=== PATIENT | male | born 1960 | race Caucasian/White ===

== ENCOUNTER → 2017-04-22 | Outpatient (REF) | payer OTHER ==
[2017-04-22 11:50] LABS: MEAN CORPUSCULAR HEMOGLOBIN 35.9 pg (27.0-33.0); MEAN CORPUSCULAR HGB CONC 36.2 g/dl (32.0-36.5); MEAN CORPUSCULAR VOLUME 99.2 fl (80.0-96.0); WHITE BLOOD COUNT 13.2 K/mm3 (4.0-10.0)
[2017-04-22 11:59] LABS: INR 1.09
[2017-04-22 12:20] LABS: ALBUMIN 3.6 GM/DL (3.2-5.2); ALBUMIN/GLOBULIN RATIO 0.97 (1.00-1.93); BILIRUBIN,TOTAL 2.3 MG/DL (0.2-1.0); CALCIUM LEVEL 8.7 MG/DL (8.5-10.1); CREATININE FOR GFR 4.49 MG/DL (0.70-1.30); GLOMERULAR FILTRATION RATE 14.5 (>56); TOTAL PROTEIN 7.3 GM/DL (6.4-8.2)
[2017-04-22 13:43] LABS: POTASSIUM SERUM 2.4 MEQ/L (3.5-5.1)
== END ==
LOC: M SFHCPLAZ 08:25
PROVIDERS: ATTEND Internal Medicine
DX: Z79.01 Long term (current) use of anticoagulants (principal); I10 Essential (primary) hypertension; E78.5 Hyperlipidemia, unspecified; Z86.718 Personal history of other venous thrombosis and embolism

== ENCOUNTER → 2017-04-23 | Outpatient (REF) | payer OTHER ==
[2017-04-23 17:50] LABS: INR 1.18
[2017-04-23 19:09] LABS: ALBUMIN 3.7 GM/DL (3.2-5.2); ALBUMIN/GLOBULIN RATIO 0.88 (1.00-1.93); BILIRUBIN,TOTAL 2.1 MG/DL (0.2-1.0); CALCIUM LEVEL 9.3 MG/DL (8.5-10.1); CREATININE FOR GFR 3.83 MG/DL (0.70-1.30); GLOMERULAR FILTRATION RATE 17.4 (>56); POTASSIUM SERUM 3.1 MEQ/L (3.5-5.1); TOTAL PROTEIN 7.9 GM/DL (6.4-8.2)
== END ==
LOC: M SFHCPLAZ 15:46
PROVIDERS: ATTEND Internal Medicine
DX: N17.9 Acute kidney failure, unspecified (principal); Z86.718 Personal history of other venous thrombosis and embolism

== ENCOUNTER → 2017-04-28 | Outpatient (REF) | payer OTHER ==
[2017-04-28 13:27] LABS: INR 1.73
[2017-04-28 15:48] LABS: CALCIUM LEVEL 9.9 MG/DL (8.5-10.1); CREATININE FOR GFR 1.69 MG/DL (0.70-1.30); GLOMERULAR FILTRATION RATE 44.7 (>56); MAGNESIUM LEVEL 1.9 MG/DL (1.8-2.4); POTASSIUM SERUM 3.2 MEQ/L (3.5-5.1)
== END ==
LOC: M SFHCPLAZ 11:30
PROVIDERS: ATTEND Internal Medicine
DX: N17.9 Acute kidney failure, unspecified (principal); Z79.01 Long term (current) use of anticoagulants

== ENCOUNTER → 2017-05-21 | Outpatient (REF) | payer OTHER ==
[2017-05-21 16:01] LABS: ALBUMIN/GLOBULIN RATIO 0.95 (1.00-1.93); BILIRUBIN,TOTAL 1.5 MG/DL (0.2-1.0); CALCIUM LEVEL 9.7 MG/DL (8.5-10.1); CREATININE FOR GFR 1.42 MG/DL (0.70-1.30); GLOMERULAR FILTRATION RATE 54.7 (>56); POTASSIUM SERUM 3.3 MEQ/L (3.5-5.1); TOTAL PROTEIN 8.2 GM/DL (6.4-8.2)
[2017-05-21 16:16] LABS: INR 1.89
== END ==
LOC: M SFHCPLAZ 13:20
PROVIDERS: ATTEND Internal Medicine
DX: Z79.01 Long term (current) use of anticoagulants (principal); I10 Essential (primary) hypertension; N17.9 Acute kidney failure, unspecified

== ENCOUNTER → 2017-06-18 | Outpatient (REF) | payer OTHER ==
[2017-06-18 15:58] LABS: INR 1.11
[2017-06-18 16:04] LABS: ALBUMIN 3.9 GM/DL (3.2-5.2); ALBUMIN/GLOBULIN RATIO 1.05 (1.00-1.93); BILIRUBIN,TOTAL 1.7 MG/DL (0.2-1.0); CALCIUM LEVEL 9.6 MG/DL (8.5-10.1); CREATININE FOR GFR 1.41 MG/DL (0.70-1.30); GLOMERULAR FILTRATION RATE 55.2 (>56); TOTAL PROTEIN 7.6 GM/DL (6.4-8.2)
[2017-06-18 16:19] LABS: POTASSIUM SERUM 2.9 MEQ/L (3.5-5.1)
== END ==
LOC: M LABDRAW1 15:35
PROVIDERS: ATTEND Internal Medicine
DX: K76.0 Fatty (change of) liver, not elsewhere classified (principal); Z79.01 Long term (current) use of anticoagulants

== ENCOUNTER → 2017-11-14 | Outpatient (REF) | payer OTHER | LOC: M SFHCPLAZ 13:08 | DX: I10 Essential (primary) hypertension (principal); N18.3 Chronic kidney disease, stage 3 (moderate); R73.01 Impaired fasting glucose; E78.5 Hyperlipidemia, unspecified; Z79.01 Long term (current) use of anticoagulants ==

== ENCOUNTER → 2017-11-24 | Outpatient (REF) | payer OTHER ==
[2017-11-24 17:50] LABS: INR 3.85; PROTHROMBIN TIME 39.8 SECONDS (12.4-14.5)
[2017-11-24 18:50] LABS: ALBUMIN/GLOBULIN RATIO 1.08 (1.00-1.93); ALKALINE PHOSPHATASE 111 U/L (45-117); ALT/SGPT 91 U/L (12-78); ANION GAP 12 MEQ/L (8-16); AST/SGOT 170 U/L (7-37); BILIRUBIN,TOTAL 0.9 MG/DL (0.2-1.0); BLOOD UREA NITROGEN 14 MG/DL (7-18); CALCIUM LEVEL 8.8 MG/DL (8.5-10.1); CARBON DIOXIDE LEVEL 26 MEQ/L (21-32); CHLORIDE LEVEL 108 MEQ/L (98-107); CHOLESTEROL LEVEL 239 MG/DL (<200); CHOLESTEROL RISK RATIO 3.144 (<5); CREATININE FOR GFR 1.02 MG/DL (0.70-1.30); GLOMERULAR FILTRATION RATE > 60.0 (>56); GLUCOSE, FASTING 75 MG/DL (70-105); HDL CHOLESTEROL 76 MG/DL (>40); LDL CHOLESTEROL 132.4 MG/DL (<100); MAGNESIUM LEVEL 1.8 MG/DL (1.8-2.4); NON-HDL-C 163 MG/DL; POTASSIUM SERUM 3.6 MEQ/L (3.5-5.1); SODIUM LEVEL 146 MEQ/L (136-145); TOTAL PROTEIN 7.7 GM/DL (6.4-8.2); TRIGLYCERIDES LEVEL 153 MG/DL (<150)
[2017-11-24 18:54] LABS: HEMATOCRIT 42.3 % (42.0-52.0); HEMOGLOBIN 14.5 g/dl (14.0-18.0); MEAN CORPUSCULAR HEMOGLOBIN 35.2 pg (27.0-33.0); MEAN CORPUSCULAR HGB CONC 34.3 g/dl (32.0-36.5); MEAN CORPUSCULAR VOLUME 102.7 fl (80.0-96.0); PLATELET COUNT, AUTOMATED 133 10^3/uL (150-450); RED BLOOD COUNT 4.12 10^6/uL (4.30-6.10); WHITE BLOOD COUNT 7.4 10^3/uL (4.0-10.0)
== END ==
LOC: M SFHCPLAZ 15:15
DX: I10 Essential (primary) hypertension (principal); E78.5 Hyperlipidemia, unspecified; Z86.718 Personal history of other venous thrombosis and embolism; Z79.01 Long term (current) use of anticoagulants

== ENCOUNTER → 2018-02-10 | Outpatient (REF) | payer OTHER ==
[2018-02-10 14:27] LABS: INR 2.76; PROTHROMBIN TIME 30.4 SECONDS (12.4-14.5)
== END ==
LOC: M LABDRAW1 11:43
DX: Z51.81 Encounter for therapeutic drug level monitoring (principal); Z79.01 Long term (current) use of anticoagulants; Z86.718 Personal history of other venous thrombosis and embolism
CPT/HCPCS: 85610

== ENCOUNTER → 2020-11-01 | Outpatient (CLI) | payer OTHER ==
[~2020-11-01] MED LIST: [UNRECOGNIZED DRUG - CODE] OU
--- NOTE | 2020-11-01 16:20 | REP ---
INDICATION: SOB , ABDOMEN PAIN. COMPARISON: No comparison study. TECHNIQUE: Two views.. FINDINGS: Right hemidiaphragm is somewhat elevated. No pleural effusion is seen. No definite infiltrate. There is a levoconvex thoracic curvature. Thoracic aorta is somewhat tortuous. No free subdiaphragmatic air. IMPRESSION: No evidence of infiltrate or free subdiaphragmatic air. Lower thoracic curvature. Slight elevation right hemidiaphragm.. <Electronically signed by Maxwell Kidd > 11/01/20 [id number]
--- NOTE | 2020-11-01 16:23 | REP ---
INDICATION: SOB , ABDOMEN PAIN. COMPARISON: None. TECHNIQUE: Four views. FINDINGS: Four views of the abdomen demonstrate no evidence of infiltrate or free subdiaphragmatic air. There is air and stool in a nondistended colon. No small or large bowel dilation is seen. There is hazy ground-glass density pattern throughout the abdomen medial and lateral to the colon question diffuse abdominal ascites. No mass or organomegaly is seen. No pathologic calcification is observed. IMPRESSION: Normal bowel gas pattern. Question diffuse abdominal ascites. Otherwise negative. <Electronically signed by Maxwell Kidd > 11/01/20 [id number]
[2020-11-01 18:19] LABS: BASO # 0.1 10^3/uL (0.0-0.2); BASO % 0.7 % (0.0-1.0); EOS % 0.2 % (0.0-3.0); HEMATOCRIT 31.7 % (42.0-52.0); HEMOGLOBIN 10.6 g/dl (13.5-17.5); LYMPH # 0.4 10^3/uL (1.5-5.0); LYMPH % 4.2 % (24.0-44.0); MEAN CORPUSCULAR HEMOGLOBIN 34.9 pg (27.0-33.0); MEAN CORPUSCULAR HGB CONC 33.4 g/dl (32.0-36.5); MEAN CORPUSCULAR VOLUME 104.3 fl (80.0-96.0); MONO # 1.7 10^3/uL (0.0-0.8); MONO % 16.9 % (0.0-5.0); NEUTROPHILS # 7.5 10^3/uL (1.5-8.5); NEUTROPHILS % 77.2 % (36.0-66.0); PLATELET COUNT, AUTOMATED 101 10^3/uL (150-450); RED BLOOD COUNT 3.04 10^6/uL (4.30-6.10); WHITE BLOOD COUNT 9.8 10^3/uL (4.0-10.0)
[2020-11-01 18:37] LABS: ALBUMIN 2.5 GM/DL (3.2-5.2); ALT/SGPT 21 U/L (12-78); BILIRUBIN,TOTAL 6.7 MG/DL (0.2-1.0); BLOOD UREA NITROGEN 28 MG/DL (7-18); CALCIUM LEVEL 8.6 MG/DL (8.8-10.2); CARBON DIOXIDE LEVEL 20 MEQ/L (21-32); CHLORIDE LEVEL 101 MEQ/L (98-107); CREATININE FOR GFR 2.18 MG/DL (0.70-1.30); FREE T4 1.85 NG/DL (0.76-1.46); GLUCOSE, FASTING 83 MG/DL (70-100); POTASSIUM SERUM 3.6 MEQ/L (3.5-5.1); SODIUM LEVEL 137 MEQ/L (136-145); TOTAL PROTEIN 7.3 GM/DL (6.4-8.2)
[2020-11-01 18:50] LABS: HEPATITIS B SURFACE ANTIGEN NEGATIVE (NEGATIVE)
[2020-11-01 19:17] LABS: HEPATITIS B CORE ANTIBODY IGM NEGATIVE (NEGATIVE); HEPATITIS C VIRUS ABY INDEX 0.2 INDEX (<0.8)
[2020-11-01 19:20] LABS: HEPATITIS A ANTIBODY IGM NEGATIVE (NEGATIVE)
== END ==
LOC: M WUC 15:39
PROVIDERS: ATTEND Physician Assistant
DX: R06.02 Shortness of breath (principal); R10.84 Generalized abdominal pain

== ENCOUNTER → 2020-11-01 | Outpatient (REF) | payer OTHER | LOC: M LAB REF 18:09 | PROVIDERS: ATTEND Physician Assistant | DX: R10.84 Generalized abdominal pain (principal); R06.03 Acute respiratory distress ==

== ENCOUNTER 2020-11-02 13:01 | Inpatient (IN) | payer OTHER ==
[~2020-11-02] VITALS: Ht 180.3 cm; Wt 82.3 kg
[2020-11-02 14:22] LABS: BASO # 0.1 10^3/uL (0.0-0.2); BASO % 0.7 % (0.0-1.0); EOS % 0.2 % (0.0-3.0); HEMATOCRIT 32.1 % (42.0-52.0); HEMOGLOBIN 10.8 g/dl (13.5-17.5); LYMPH # 0.5 10^3/uL (1.5-5.0); LYMPH % 5.2 % (24.0-44.0); MEAN CORPUSCULAR HGB CONC 33.6 g/dl (32.0-36.5); MEAN CORPUSCULAR VOLUME 103.9 fl (80.0-96.0); MONO # 1.4 10^3/uL (0.0-0.8); MONO % 14.8 % (0.0-5.0); NEUTROPHILS # 7.4 10^3/uL (1.5-8.5); NEUTROPHILS % 78.1 % (36.0-66.0); PLATELET COUNT, AUTOMATED 118 10^3/uL (150-450); RED BLOOD COUNT 3.09 10^6/uL (4.30-6.10); WHITE BLOOD COUNT 9.5 10^3/uL (4.0-10.0)
[2020-11-02 14:34] LABS: INR 1.29; PARTIAL THROMBOPLASTIN TIME 36.6 SECONDS (24.2-38.5); PROTHROMBIN TIME 16.4 SECONDS (12.5-14.3)
[2020-11-02 15:00] LABS: RSV AMPLIFICATION NEGATIVE (NEGATIVE)
--- NOTE | 2020-11-02 15:54 | REP ---
INDICATION: lower extremity edema. COMPARISON: Comparison study September 09, 2012.. TECHNIQUE: Bilateral lower extremity duplex venous ultrasound. FINDINGS: The deep veins are anechoic and fully compressible in the right lower extremity on two-dimensional scanning. Color flow and spectral Doppler interrogation unremarkable on the right. There is no evidence of DVT on the right. In the left lower extremity however, there is echogenic throughout nonocclusive partial thrombosis of the femoral vein and popliteal vein. There is diffuse subcutaneous edema. No occlusive thrombus is seen. Common femoral vein is clear. IMPRESSION: Positive study for nonocclusive DVT affecting the left femoral vein and left popliteal vein. Thrombus is somewhat echogenic question subacute or chronic. No occlusive DVT is seen. The right lower extremity deep venous system is clear.. <Electronically signed by Maxwell Kidd > 11/02/20 [id number]
--- NOTE | 2020-11-02 15:58 | REP ---
INDICATION: ABDOMINAL SWELLING. COMPARISON: None. TECHNIQUE: Real-time sonographic evaluation of ABDOMEN PERFORMED, WITH DUPLEX DOPPLER EVALUATION OF PORTAL VASCULATURE. FINDINGS: Gallbladder demonstrates no definite intraluminal stones. It is contracted. The wall of the gallbladder is mildly thickened at 6 mm. There is no intrahepatic or extrahepatic biliary dilatation, common bile duct measures 6 mm in maximum diameter. The liver demonstrates coarsened heterogeneous echotexture with no gross mass. Pancreas is not seen due to overlying bowel gas. Spleen is enlarged measuring 15.7 x 13.1 x 6.1 cm. There is no evidence of hydronephrosis, cyst, mass, or calculus in either kidney. The right kidney measures 11.4 x 4.6 x 5.4 cm. Left renal dimensions are 9.7 x 3.9 x 4.8 cm. The abdominal aorta is not visualized due to overlying bowel gas. There is a moderate to large amount of ascites diffusely. The main portal vein measures 9 mm in diameter. The splenic vein and portal veins demonstrate normal direction of flow, with somewhat slow flow velocities, velocity in the main portal vein is 13.6 centimeter/second. There is no portal vein thrombosis. Hepatic veins are patent with no thrombus. There appears to be reversal of flow in the left hepatic vein. Patent main hepatic artery demonstrates peak systolic velocity of 96 centimeters/second. IMPRESSION: Contracted gallbladder with possible diffuse wall thickening but no intraluminal stones. No biliary dilatation. Diffuse heterogeneous coarsened echotexture of the liver compatible with diffuse fibrofatty infiltration and likely cirrhosis. No liver mass. Splenomegaly. Moderate to large amount of ascites. Portal vasculature demonstrates normal direction of flow with no thrombosis. No evidence of hepatic vein thrombosis. There appears to be reversal of flow in the left hepatic vein. <Electronically signed by Gopi Hazel > 11/02/20 [id number]
[2020-11-02 16:03] LABS: ALBUMIN 2.7 GM/DL (3.2-5.2); ALT/SGPT 25 U/L (12-78); AMYLASE 47 U/L (25-115); BILIRUBIN,DIRECT 5.2 MG/DL (0.0-0.2); BILIRUBIN,TOTAL 6.7 MG/DL (0.2-1.0); BLOOD UREA NITROGEN 33 MG/DL (7-18); CALCIUM LEVEL 9.3 MG/DL (8.8-10.2); CARBON DIOXIDE LEVEL 22 MEQ/L (21-32); CHLORIDE LEVEL 102 MEQ/L (98-107); CK-MB VALUE MASS 2.5 NG/ML (<3.6); CPK CREATINE PHOSPHOKINASE 46 U/L (39-308); CREATININE FOR GFR 2.37 MG/DL (0.70-1.30); ETHYL ALCOHOL (ETHANOL) 0.118 % (0.000-0.010); GLUCOSE, FASTING 93 MG/DL (70-100); LIPASE 262 U/L (73-393); MAGNESIUM LEVEL 1.7 MG/DL (1.8-2.4); MB/CK RELATIVE INDEX 5.43 (< OR =4); NT-PRO BNP 1915 PG/ML (<125); POTASSIUM SERUM 3.4 MEQ/L (3.5-5.1); SODIUM LEVEL 137 MEQ/L (136-145); TOTAL PROTEIN 7.8 GM/DL (6.4-8.2); TROPONIN I < 0.02 NG/ML (< 0.10)
--- NOTE | 2020-11-02 16:50 | REP ---
INDICATION: sob. COMPARISON: Comparison chest x-ray November 01, 2020. TECHNIQUE: Portable upright AP chest radiograph. FINDINGS: The lungs are well inflated and free of infiltrate. Pleural angles are sharp. Heart size is normal. Pulmonary vasculature is not increased. Right hemidiaphragm remains elevated. Current exposure is made in a lordotic projection. No acute infiltrate is seen. IMPRESSION: Somewhat elevated right hemidiaphragm. No acute infiltrate.. <Electronically signed by Maxwell Kidd > 11/02/20 [id number]
[2020-11-02] MEDS ORDERED: FUROSEMIDE 100MG/10ML VIAL (J1940) IV ONE (17:45)
[2020-11-02] MEDS ORDERED: [UNRECOGNIZED DRUG - CODE] OU (17:50)
--- NOTE | 2020-11-02 18:23 | REPVR ---
PROCEDURE INFORMATION: Exam: CT Chest Without Contrast; Diagnostic Exam date and time: 11/02/2020 4:57 PM Age: 60 years old Clinical indication: Other: Elevated right hemidiaphragm; Additional info: Abdominal distension, elevated right hemidiaphragm TECHNIQUE: Imaging protocol: Diagnostic computed tomography of the chest without contrast. Radiation optimization: All CT scans at this facility use at least one of these dose optimization techniques: automated exposure control; mA and/or kV adjustment per patient size (includes targeted exams where dose is matched to clinical indication); or iterative reconstruction. COMPARISON: [place] PORTABLE CHEST X-RAY 11/02/2020 4:33 PM FINDINGS: Lungs: A consolidation is identified at the right lung base, likely representing atelectatic change. Pneumonia is within the differential. Additional patchy atelectatic changes are visualized. Within the left lower lobe of the lung, on series 201, image 52, there is a pleurally based nodule measuring 6-7 mm. Pleural space: No pneumothorax. No pleural effusion. Heart: Coronary artery calcification. No cardiomegaly. Aorta: Minimal atherosclerosis. No aortic aneurysm. Lymph nodes: Evaluation for hilar lymph nodes is limited by the absence of intravenous contrast. Diaphragm: There is significant elevation of the right hemidiaphragm. Bones/joints: Hypertrophic degenerative changes are noted involving the spine. Soft tissues: Retroareolar increased density is identified bilaterally, consistent with gynecomastia. Other findings: For discussion of findings involving the abdomen and pelvis, refer to the abdomen/pelvis CT report from the same day. 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 A paraesophageal lymph node cannot be excluded. IMPRESSION: 1. A consolidation is identified at the right lung base, likely representing atelectatic change. Pneumonia is within the differential. Additional patchy atelectatic changes are visualized. Clinical correlation is recommended. 2. There is significant elevation of the right hemidiaphragm. 3. Within the left lower lobe of the lung, there is a pleurally based nodule measuring 6-7 mm. Recommend follow-up CT Chest in 6-12 months. (References: Irvin) 4. 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 A paraesophageal lymph node cannot be excluded. 5. Additional findings described above. REFERENCES: 1. Chikihodonny H, et al. Guidelines for Management of Incidental Pulmonary Nodules Detected on CT Images: From the Fleischner Society 2017. Radiology. 2017;284(1):228-243. 2. Gabriele J, et al. Updated Fleischner Society Guidelines for Managing Incidental Pulmonary Nodules: Common Questions and Challenging Scenarios. Radiographics. 2018;38(5):6369-8256. Electronically signed by: Paco Clemens On 11/02/2020 18:23:14 PM
--- NOTE | 2020-11-02 18:42 | REPVR ---
PROCEDURE INFORMATION: Exam: CT Abdomen And Pelvis Without Contrast Exam date and time: 11/02/2020 4:57 PM Age: 60 years old Clinical indication: Bloating; Additional info: Abdominal distension, elevated right hemidiaphragm TECHNIQUE: Imaging protocol: Computed tomography of the abdomen and pelvis without contrast. Radiation optimization: All CT scans at this facility use at least one of these dose optimization techniques: automated exposure control; mA and/or kV adjustment per patient size (includes targeted exams where dose is matched to clinical indication); or iterative reconstruction. COMPARISON: ABD COMPLETE US 11/02/2020 3:06 PM FINDINGS: Liver: There is irregularity of the hepatic contour, likely representing cirrhosis. Within the hepatic dome posteriorly, there is a 2.8 x 1.9 cm hypodense lesion, incompletely characterized on this study. Gallbladder and bile ducts: Gallstones are visualized within the gallbladder. Pancreas: Small calcifications are identified within the pancreatic head and uncinate process. Spleen: Mild splenomegaly. Adrenal glands: No mass. Kidneys and ureters: There is a tiny calcification or calculus visualized in the region of the mid left ureter measuring 2 mm, although there is no significant hydronephrosis or hydroureter. No hydronephrosis the right kidney. Nonspecific perinephric stranding bilaterally. Stomach and bowel: Evaluation of bowel is limited by the absence of oral contrast. No bowel obstruction. Wall thickening of proximal jejunum, suggestive of enteritis. Colonic diverticula are visualized. Evaluation for diverticulitis is limited by the presence of ascites. There is an increase in submucosal fat within the ascending colon. This can be associated with inflammatory bowel disease. Appendix: Hyperdensity within the distal appendix, suggestive of an appendicolith. There is mild gaseous distention of the proximal appendix. Appendicitis is difficult to exclude due to the presence of surrounding ascites. Intraperitoneal space: There is a large quantity of abdominal and pelvic ascites. Diffuse peritoneal stranding identified. This stranding is likely contributed by the ascites or inflammation, although additional pathology cannot be excluded. Vasculature: Atherosclerosis of a nondilated abdominal aorta. The right common femoral vein is ectatic. Additional atherosclerotic changes visualized. Lymph nodes: There is an enlarged left external iliac chain lymph node measuring 2.5 x 1.0 cm, nonspecific as to etiology. A mildly enlarged left inguinal lymph node is also noted. Nonspecific right inguinal lymph nodes identified. A few mildly enlarged lymph nodes are identified adjacent to the left common iliac artery. Scattered small additional retroperitoneal lymph nodes identified. Urinary bladder: Unremarkable as visualized. Reproductive: There is abnormal density within the bilateral inguinal canals which may represent fluid or abnormal positioning of the testes. Bones/joints: Old fractures are identified of the right posterior 10th through 12th ribs. Probable old fractures of the right L2 and L3 transverse processes. Soft tissues: Fluid extends into an umbilical hernia. There is diffuse swelling of the visualized soft tissues, consistent with anasarca. IMPRESSION: 1. There is irregularity of the hepatic contour, likely representing cirrhosis. Within the hepatic dome posteriorly, there is a 2.8 x 1.9 cm hypodense lesion, incompletely characterized on this study. A nonemergent MRI of the abdomen with/without contrast is recommended, as clinically indicated. 2. There is a large quantity of abdominal and pelvic ascites. Diffuse peritoneal stranding identified. 3. Hyperdensity within the distal appendix, suggestive of an appendicolith. There is mild gaseous distention of the proximal appendix. Appendicitis is difficult to exclude due to the presence of surrounding ascites. Clinical correlation is recommended. 4. Anasarca. 5. Cholelithiasis. 6. There is a tiny calcification or calculus visualized in the region of the mid left ureter measuring 2 mm, although there is no significant hydronephrosis or hydroureter. 7. Wall thickening of proximal jejunum, suggestive of enteritis. 8. Colonic diverticular disease. 9. There is an increase in submucosal fat within the ascending colon. This can be associated with inflammatory bowel disease. 10. There is an enlarged left external iliac chain lymph node measuring 2.5 x 1.0 cm, nonspecific as to etiology. A mildly enlarged left inguinal lymph node is also noted. A few mildly enlarged lymph nodes are identified adjacent to the left common iliac artery. 11. Mild splenomegaly. 12. Additional findings described above. Findings are discussed with BRENT BENÍTEZ , 11/02/2020 6:39 PM EST. The findings were acknowledged and understood. Electronically signed by: Paco Clemens On 11/02/2020 18:42:23 PM
[2020-11-02] MEDS ORDERED: FUROSEMIDE 40MG/4ML VIAL (J1940) IV SCH (19:00)
[2020-11-02] MEDS ORDERED: DIGOXIN INJ 0.5 MG/2 ML AMP (J1160) IV ONE ×2 (20:00→23:00)
[2020-11-02] MEDS: THIAMINE 100 MG TAB PO SCH (20:00)
[2020-11-02] MEDS ORDERED: ENOXAPARIN 80MG/0.8ML SYRINGE (J1650 PER 10MG) SC ONE (20:00)
[2020-11-02] MEDS ORDERED: SPIRONOLACTONE 25 MG TAB PO ONE (21:00)
[2020-11-02] MEDS: LORazepam 2 MG TAB PO PRN (23:27)
[2020-11-03] VITALS (18 sets, daily range): BP systolic 95–152; BP diastolic 60–98
[2020-11-03] MEDS ORDERED: MAG SULF 1GM/100ML (MAG RUN) 1 GM in IV 1 EA IV ONE (00:30)
--- NOTE | 2020-11-03 00:53 | HPEPDOC ---
General Date of Admission 11/02/20 Date of Service: Nov 02, 2020 Chief Complaint The patient is a 60-year-old male admitted with a reason for visit of Leg/Abdominal Swelling. Source: Patient History of Present Illness 60 year old male with h/o alcohol abuse, CKD stage 3, h/o DVT x in the past in the left leg, chronic venous stasis, hypertension presented to ED with increa sing swelling of the abdomen, leg swelling, cough and shortness of breath. Patient reports that the swelling has been building up over the past 5 weeks and now has become so bad that he has been have difficulty breathing because of the belly pushing up against his chest. He has been unable to bend down and wear his compression stocking. He describes his abdomen feeling very tense and tight with a stretching kind of pain rated it at about 4/10 and no position in bed in giving him any comfort. Its present all over the abdomen. He also noted an umbilical hernia. He was found to have massive ascites. He was also noted to be in Afib with RVR in the ED. US of the legs revealed DVT acute vs subacute on the left leg. He was also noted to have MARJORIE. Labs were significant for lactic acidosis and an alcohol level of 0.116. Creatinine of 2.36, Bilirubin 6.5. Direct Bili 5.2, ammonia 39. His last drink was last night. He admits that he has been drinking almost all his life and very heavily in the last 5 years. He was admitted for Decompensated cirrhosis of liver with massive ascites, possibly varices, cholestasis, MARJORIE, Afib with RVR and DVT of left leg acute Vs subacute CT abd showed. 1. There is irregularity of the hepatic contour, likely representing cirrhosis. Within the hepatic dome posteriorly, there is a 2.8 x 1.9 cm hypodense lesion, incompletely characterized on this study. A nonemergent MRI of the abdomen with/without contrast is recommended, as clinically indicated. 2. There is a large quantity of abdominal and pelvic ascites. Diffuse peritoneal stranding identified. 3. Hyperdensity within the distal appendix, suggestive of an appendicolith. There is mild gaseous distention of the proximal appendix. Appendicitis is difficult to exclude due to the presence of surrounding ascites. Clinical correlation is recommended. 4. Anasarca. 5. Cholelithiasis. 6. There is a tiny calcification or calculus visualized in the region of the mid left ureter measuring 2 mm, although there is no significant hydronephrosis or hydroureter. 7. Wall thickening of proximal jejunum, suggestive of enteritis. 8. Colonic diverticular disease. 9. There is an increase in submucosal fat within the ascending colon. This can be associated with inflammatory bowel disease. 10. There is an enlarged left external iliac chain lymph node measuring 2.5 x 1.0 cm, nonspecific as to etiology. A mildly enlarged left inguinal lymph node is also noted. A few mildly enlarged lymph nodes are identified adjacent to the left common iliac artery. 11. Mild splenomegaly. CT chest: 1. A consolidation is identified at the right lung base, likely representing atelectatic change. Pneumonia is within the differential. Additional patchy atelectatic changes are visualized. Clinical correlation is recommended. 2. There is significant elevation of the right hemidiaphragm. 3. Within the left lower lobe of the lung, there is a pleurally based nodule measuring 6-7 mm. Recommend follow-up CT Chest in 6-12 months. (References: Albert and Gabriele) 4.Paraesophageal varices are identified. A paraesophageal lymph node cannot be excluded. Doppler US of legs: Positive study for nonocclusive DVT affecting the left femoral vein and left popliteal vein. Thrombus is somewhat echogenic question subacute or chronic. No occlusive DVT is seen. The right lower extremity deep venous system is clear.. Home Medications Scheduled Bromfenac Sodium (Bromfenac Sodium) 0.09% 1.7ML Drops, 1 DROP OU QAM, (Reported) Allergies Coded Allergies: No Known Allergies (Verified , 05/23/03) Past Medical History Medical History CIRRHOSIS HYPERTENSION HYPERLIPIDEMIA FATTY LIVER PERSONAL HISTORY OF DVT (DEEP VEIN THROMBOSIS) IMPAIRED FASTING GLUCOSE CHRONIC KIDNEY DISEASE, STAGE 3 OTHER INSOMNIA ALCOHOL USE DISORDER CHRONIC VENOUS STASIS> Surgical History INGUINAL HERNIA REPAIR 1984 Family History FATHER IN 10/2011--DIABETIC AND HYPERTENSIVE. HIS MOTHER AT AGE 87 OF HEART DISEASE. Social History * Smoker: former Smoker Alcohol: heavy Drugs: denies A-FIB/CHADSVASC A-FIB History Current/History of A-Fib/PAF?: Yes Current PO Anticoag Therapy: Yes Review of Systems Constitutional: Reports: Weakness, Fatigue; Denies: Chills, Fever, Night Sweats Eyes: Denies: Pain, Vision change ENT: Denies: Head Aches, Ear Pain, Dysphagia Pulmonary: Reports: Dyspnea, Cough Cardiovascular: Denies: Chest Pain, Palpitations, Orthopnea, Paroxysmal Noc. Dyspnea, Lt Headedness Gastrointestinal: Reports: Abdominal Pain, Other Symptoms (ascites); Denies: Nausea, Vomiting, Diarrhea Genitourinary: Denies: Dysuria, Frequency, Incontinence, Retention Hematologic: Denies: Bruising, Bleeding Excessively Musculoskeletal: Reports: Back Pain Physical Examination General Exam: Positive: Alert, No Acute Distress, Mild Distress (due to abdominal distension) Eye Exam: Positive: PERRLA, Conjunctiva & lids normal, EOMI, Sclera icteric ENT Exam: Positive: Atraumatic, Mucous membr. moist/pink, Pharynx Normal Neck Exam: Positive: Supple, JVD; Negative: thyromegaly Chest Exam: Positive: Normal air movement, Rales, Wheezing Heart Exam: Positive: Tachycardic, Irregular Rhythm, Normal S1; Negative: Rate Normal, Bradycardic, Regular Rhythm, Normal S2, Gallops Abdomen Exam: Positive: Normal bowel sounds, Soft, Tenderness (all over), Hernia (umbilical hernia'); Negative: Hepatospenomegaly Extremity Exam: Positive: Edema; Negative: Clubbing, Cyanosis Vital Signs Vital Signs Date Time Temp Pulse Resp B/P (MAP) Pulse Ox O2 Delivery O2 Flow Rate FiO2 11/02/20 16:54 112 18 97 Room Air 11/02/20 16:45 122/74 (90) 11/02/20 13:01 98.4 Laboratory Data Labs 24H Laboratory Tests 2 11/02/20 13:46: Immature Granulocyte % (Auto) 1.0, Neutrophils (%) (Auto) 78.1H, Lymphocytes (%) (Auto) 5.2L, Monocytes (%) (Auto) 14.8H, Eosinophils (%) (Auto) 0.2, Basophils (%) (Auto) 0.7, Neutrophils # (Auto) 7.4, Lymphocytes # (Auto) 0.5L, Monocytes # (Auto) 1.4H, Eosinophils # (Auto) 0.0, Basophils # (Auto) 0.1, Nucleated Red Blood Cells % (auto) 0.2H, Prothrombin Time 16.4H, Prothromb Time International Ratio 1.29, Activated Partial Thromboplast Time 36.6, Anion Gap 13, Glomerular Filtration Rate 30.0L, Lactic Acid Level 4.0*H, Calcium Level 9.3, Magnesium Level 1.7L, Total Bilirubin 6.7H, Direct Bilirubin 5.2H, Aspartate Amino Transf (AST/SGOT) 71H, Alanine Aminotransferase (ALT/SGPT) 25, Alkaline Phosphatase 227H, Total Creatine Kinase 46, Creatine Kinase MB 2.5, Creatine Kinase MB Relative Index 5.43H, Troponin I < 0.02, CP-Yqj-D-Type Natriuretic Peptide 1915H, Total Protein 7.8, Albumin 2.7L, Albumin/Globulin Ratio 0.5, Amylase Level 47, Lipase 262, Ethyl Alcohol Level 0.118H, Coronavirus (COVID-19)(PCR) NEGATIVE, Influenza Type A (RT-PCR) NEGATIVE, Influenza Type B (RT-PCR) NEGATIVE, Respiratory Syncytial Virus (PCR) NEGATIVE 11/02/20 13:48: Ammonia 39H CBC/BMP Laboratory Tests 11/02/20 13:46 Assessment/Plan 60 year old male with h/o alcohol abuse, CKD stage 3, h/o DVT x in the past in the left leg, chronic venous stasis, hypertension presented to ED with increasing swelling of the abdomen, leg swelling, cough and shortness of breath. Patient reports that the swelling has been building up over the past 5 weeks and now has become so bad that he has been have difficulty breathing because of the belly pushing up against his chest. He has been unable to bend down and wear his compression stocking. He describes his abdomen feeling very tense and tight with a stretching kind of pain rated it at about 4/10 and no position in bed in giving him any comfort. Its present all over the abdomen. He also noted an umbilical hernia. He was found to have massive ascites. He was also noted to be in Afib with RVR in the ED. US of the legs revealed DVT acute vs subacute on the left leg. He was also noted to have MARJORIE. Labs were significant for lactic acidosis and an alcohol level of 0.116. Creatinine of 2.36, Bilirubin 6.5. Direct Bili 5.2, ammonia 39. His last drink was last night. He admits that he has been drinking almost all his life and very heavily in the last 5 years. 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 will start patient on lasix, aldactone, schedule for paracentesis tomorrow Albumin' Lactacidosis probably a combination of liver failure and alcohol. Due to associated renal failure will take longer to clear if at all. MARJORIE Cause could be due to fluid overload with decreased intravascular volume. Increased intra abdominal pressure from the massive ascites or hepatorenal syndrome will continue lasix and aldactone, scheduled for Paracentesis. Albumin and lasiiiix. Cholestatic jaundice Due to cirrhosis will continue to monitor Hypomagnesemia will replace Continuos Alcohol abuse CIWA protocol, watch for alcohol withdrawal. Nonocclusive DVT affecting the left femoral vein and left popliteal vein. will give Lovenox. Afib with RVR rate control with Digoxin and metoprolol. If Patient goes into alcohol withdrawal will probably worsen will give 1 dose of lovenox only. As will need procedure tomorrow Echo. Hepatic lobe Within the hepatic dome posteriorly, there is a 2.8 x 1.9 cm hypodense lesion need further evaluation for malignancy, Right lung base atelectasis/ pneumonia i do not believe he has a pneumonia as no fever, no elevted WBC, no resp complaints. Lung nodule needs follow up CT. Plan / VTE VTE Prophylaxis Ordered?: Yes BRIAN GOMEZ MD Nov 02, 2020 18:15
[2020-11-03] MEDS: METOPROLOL TART 25 MG TABLET PO SCH ×3 (01:50→05:11)
[2020-11-03 05:10] LABS: BASO % 0.4 % (0.0-1.0); HEMATOCRIT 29.1 % (42.0-52.0); HEMOGLOBIN 9.8 g/dl (13.5-17.5); LYMPH # 0.4 10^3/uL (1.5-5.0); LYMPH % 3.9 % (24.0-44.0); MEAN CORPUSCULAR HEMOGLOBIN 35.3 pg (27.0-33.0); MEAN CORPUSCULAR HGB CONC 33.7 g/dl (32.0-36.5); MEAN CORPUSCULAR VOLUME 104.7 fl (80.0-96.0); MONO # 1.4 10^3/uL (0.0-0.8); MONO % 12.6 % (0.0-5.0); NEUTROPHILS # 9.3 10^3/uL (1.5-8.5); NEUTROPHILS % 82.3 % (36.0-66.0); PLATELET COUNT, AUTOMATED 125 10^3/uL (150-450); RED BLOOD COUNT 2.78 10^6/uL (4.30-6.10); WHITE BLOOD COUNT 11.3 10^3/uL (4.0-10.0)
[2020-11-03] MEDS: LORazepam 2 MG TAB PO PRN (05:11)
[2020-11-03 05:39] LABS: ALBUMIN 2.5 GM/DL (3.2-5.2); BILIRUBIN,TOTAL 8.6 MG/DL (0.2-1.0); CALCIUM LEVEL 8.7 MG/DL (8.8-10.2); CREATININE FOR GFR 2.4 MG/DL (0.70-1.30); GLOMERULAR FILTRATION RATE 29.5 (>49); MAGNESIUM LEVEL 1.9 MG/DL (1.8-2.4); POTASSIUM SERUM 3.7 MEQ/L (3.5-5.1); TOTAL PROTEIN 7.1 GM/DL (6.4-8.2)
[2020-11-03] MEDS ORDERED: LORazepam 2 MG/ML VIAL IV STA (06:42)
--- NOTE | 2020-11-03 07:05 | ECGEPIP ---
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
[2020-11-03] MEDS: THIAMINE 100 MG TAB PO SCH ×3 (09:00→21:58)
[2020-11-03] MEDS: MULTIVITAMINS/MINERALS THERAP 1 TAB PO SCH (09:00)
[2020-11-03] MEDS: FOLIC ACID 1 MG TAB PO SCH (09:00)
[2020-11-03] MEDS ORDERED: FUROSEMIDE 40MG/4ML VIAL (J1940) IV SCH (09:00)
[2020-11-03] MEDS ORDERED: SPIRONOLACTONE 25 MG TAB PO SCH (09:00)
[2020-11-03] MEDS: cefTRIAXone SOD 1 GM in D5W MINI-BAG PLUS 50 ML IV SCH (09:04)
--- NOTE | 2020-11-03 11:33 | IPNPDOC ---
Subjective Date Seen The patient was seen on 11/03/20. Subjective Chief Complaint/HPI Patient started withdrawing from late last night.This am he is completely confused gets intermittently agitated trying to get out of bed. Needed IV ativan. No fevr or chills, no bowel movement, urinary incontinance. Planned for Paracentesis today Objective Physical Examination General Exam: Positive: Mild Distress (due to abdominal distension), Other (confused) Eye Exam: Positive: PERRLA, Conjunctiva & lids normal, Sclera icteric ENT Exam: Positive: Atraumatic, Mucous membr. moist/pink, Pharynx Normal Neck Exam: Positive: Supple, JVD; Negative: thyromegaly Chest Exam: Positive: Normal air movement, Wheezing Heart Exam: Positive: Tachycardic, Irregular Rhythm, Normal S1; Negative: Rate Normal, Bradycardic, Regular Rhythm, Normal S2, Gallops Telemetry: Positive: Atrial fibrillation Abdomen Exam: Positive: Normal bowel sounds, Soft, Tenderness (all over), Hernia (umbilical hernia'), Other (large ascites); Negative: Hepatospenomegaly Extremity Exam: Positive: Edema; Negative: Clubbing, Cyanosis Psych Exam: Positive: Other (confused) Assessment /Plan Assessment 60 year old male with h/o alcohol abuse, CKD stage 3, h/o DVT x in the past in the left leg, chronic venous stasis, hypertension presented to ED with increasing swelling of the abdomen, leg swelling, cough and shortness of breath. Patient reports that the swelling has been building up over the past 5 weeks and now has become so bad that he has been have difficulty breathing because of the belly pushing up against his chest. He has been unable to bend down and wear his compression stocking. He describes his abdomen feeling very tense and tight with a stretching kind of pain rated it at about 4/10 and no position in bed in giving him any comfort. Its present all over the abdomen. He also noted an umbilical hernia. He was found to have massive ascites. He was also noted to be in Afib with RVR in the ED. US of the legs revealed DVT acute vs subacute on the left leg. He was also noted to have MARJORIE. Labs were significant for lactic acidosis and an alcohol level of 0.116. Creatinine of 2.36, Bilirubin 6.5. Direct Bili 5.2, ammonia 39. His last drink was last night. He admits that he has been drinking almost all his life and very heavily in the last 5 years. 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 will start patient on lasix, aldactone, schedule for paracentesis tomorrow Albumin. will give lactulose. will start on empiric ceftriaxone. Acute metabolic encephalopathy due to acute ongoing alcohol withdrawal. may also develop hepatic encephalopathy will put on lactulose. Ativan prn. haldol prn Continuos Alcohol abuse with acute withdrawal CIWA protocol in place ativan IV prn. Lactacidosis probably a combination of liver failure and alcohol. Due to associated renal failure will take longer to clear if at all. MARJORIE Cause could be due to fluid overload with decreased intravascular volume. Increased intra abdominal pressure from the massive ascites or hepatorenal syndrome will continue lasix and aldactone, scheduled for Paracentesis. Albumin and Lasix. Cholestatic jaundice Due to cirrhosis will continue to monitor Hypomagnesemia replaced Nonocclusive DVT affecting the left femoral vein and left popliteal vein. Ac after procedure. Afib with RVR rate control with Digoxin and metoprolol. If Patient goes into alcohol withdrawal will probably worsen Echo. Will need to start AC after procedure and when patient awake and alert Hepatic lobe Within the hepatic dome posteriorly, there is a 2.8 x 1.9 cm hypodense lesion need further evaluation for malignancy will need further testing like MRI could be done as outpatient. Right lung base atelectasis/ pneumonia i do not believe he has a pneumonia as no fever, no elevated WBC, no resp complaints. this looks like atelectasis. Lung nodule needs follow up CT. Plan/VTE VTE Prophylaxis Ordered?: Yes VS, I&O, 24H, Fishbone Vital Signs/I&O Vital Signs Date Time Temp Pulse Resp B/P (MAP) Pulse Ox O2 Delivery O2 Flow Rate FiO2 11/03/20 07:50 99/70 (80) 11/03/20 07:48 98.4 107 20 93 11/03/20 06:45 Room Air 11/03/20 04:00 2.0 I&O- Last 24 Hours up to 6 AM 11/03/20 06:00 Intake Total 50.0 ml Balance 50.0 ml Laboratory Data 24H LABS Laboratory Tests 2 11/02/20 13:46: Immature Granulocyte % (Auto) 1.0, Neutrophils (%) (Auto) 78.1H, Lymphocytes (%) (Auto) 5.2L, Monocytes (%) (Auto) 14.8H, Eosinophils (%) (Auto) 0.2, Basophils (%) (Auto) 0.7, Neutrophils # (Auto) 7.4, Lymphocytes # (Auto) 0.5L, Monocytes # (Auto) 1.4H, Eosinophils # (Auto) 0.0, Basophils # (Auto) 0.1, Nucleated Red Blood Cells % (auto) 0.2H, Prothrombin Time 16.4H, Prothromb Time International Ratio 1.29, Activated Partial Thromboplast Time 36.6, Anion Gap 13, Glomerular Filtration Rate 30.0L, Lactic Acid Level 4.0*H, Calcium Level 9.3, Magnesium Level 1.7L, Total Bilirubin 6.7H, Direct Bilirubin 5.2H, Aspartate Amino Transf (AST/SGOT) 71H, Alanine Aminotransferase (ALT/SGPT) 25, Alkaline Phosphatase 227H, Total Creatine Kinase 46, Creatine Kinase MB 2.5, Creatine Kinase MB Relative Index 5.43H, Troponin I < 0.02, RT-Qwk-P-Type Natriuretic Peptide 1915H, Total Protein 7.8, Albumin 2.7L, Albumin/Globulin Ratio 0.5, Amylase Level 47, Lipase 262, Ethyl Alcohol Level 0.118H, Coronavirus (COVID-19)(PCR) NEGATIVE, Influenza Type A (RT-PCR) NEGATIVE, Influenza Type B (RT-PCR) NEGATIVE, Respiratory Syncytial Virus (PCR) NEGATIVE 11/02/20 13:48: Ammonia 39H 11/02/20 19:48: Lactic Acid Followup at 4 Hours 4.3*H 11/02/20 22:40: Lactic Acid Level 4.1*H 11/03/20 04:35: Immature Granulocyte % (Auto) 0.8, Neutrophils (%) (Auto) 82.3H, Lymphocytes (%) (Auto) 3.9L, Monocytes (%) (Auto) 12.6H, Eosinophils (%) (Auto) 0.0, Basophils (%) (Auto) 0.4, Neutrophils # (Auto) 9.3H, Lymphocytes # (Auto) 0.4L, Monocytes # (Auto) 1.4H, Eosinophils # (Auto) 0.0, Basophils # (Auto) 0.0, Nucleated Red Blood Cells % (auto) 0.2H, Anion Gap 17H, Glomerular Filtration Rate 29.5L, Lactic Acid Followup at 4 Hours 6.1*H, Calcium Level 8.7L, Magnesium Level 1.9, Total Bilirubin 8.6H, Aspartate Amino Transf (AST/SGOT) 65H, Alanine Aminotransferase (ALT/SGPT) 21, Alkaline Phosphatase 187H, Total Protein 7.1, Albumin 2.5L, Albumin/Globulin Ratio 0.5 CBC/BMP Laboratory Tests 11/02/20 13:46 11/03/20 04:35 BRIAN GOMEZ MD Nov 03, 2020 11:33
[2020-11-03] MEDS: METOPROLOL TART 12.5 MG PER 1/2 TAB PO SCH ×2 (12:00→17:01)
[2020-11-03] MEDS: LORazepam 2 MG/ML VIAL IV PRN (13:32)
[2020-11-03] MEDS ORDERED: SODIUM BICARBONATE 8.4% INJ 50MEQ 50 ML VIAL As Ordered ONE (13:53)
--- NOTE | 2020-11-03 15:54 | CR ---
CONSULTATION DATE: 11/03/2020 CONSULTATION FOR: Elizabeth Fregoso M.D. REASON FOR CONSULTATION: Acute renal failure in this gentleman with hepatic decompensation and massive ascites. HISTORY OF PRESENT ILLNESS: Mr. Briceno is a 60-year-old gentleman with known history of chronic alcohol use, history of stage III chronic kidney disease (CKD), prior history of left leg deep venous thrombosis (DVT), and hypertension. He presented to the emergency room yesterday with progressive abdominal distention and shortness of breath. He was found to have a large amount of ascites. A CT scan of abdomen and pelvis was done, which showed cirrhotic liver and large amount of abdominal and pelvic ascites in addition to cholelithiasis and anasarca. A tiny calcification was noticed in the left ureter, measuring only 2 mm without any significant hydronephrosis. Leg ultrasound shows deep venous thrombosis (DVT) in his left femoral vein. CT chest showed some consolidation and 6-7 mm nodule. His creatinine was elevated at 2.3 mg/dL, and a nephrology consultation was requested. Patient is seen today. He is quite obtunded and unable to provide any information himself. His chart is reviewed, and all information is obtained from his chart. MEDICAL HISTORY: 1. Alcoholic cirrhosis with ascites. 2. Hypertension. 3. Stage III of CKD. 4. Hyperlipidemia. 5. Prior history of DVT is left leg. 6. History of chronic venous stasis. SURGICAL HISTORY: Significant for inguinal hernia repair in 1984 FAMILY HISTORY: Father with diabetes and hypertension. Mother at age 87 with heart disease. PERSONAL AND SOCIAL HISTORY: Patient is a former smoker and heavy alcohol drinker. He denies any drug use. HOME MEDICATIONS: Bromfenac sodium eyedrops. No other medications that he was taking regularly. ALLERGIES: No known drug allergies. REVIEW OF SYSTEMS: At present, patient is unable to provide any information himself. On admission he reported progressive dyspnea and abdominal distention. No fever or chills reported. Today patient is unable to provide any information. PHYSICAL EXAMINATION: Temperature 98.3 degrees Fahrenheit, heart rate 84 per minute, respiratory rate 20 per minute, blood pressure 102/60 mm of mercury, and oxygen saturation 93% on 2 liters oxygen. His head is atraumatic. Neck is difficult to be assessed. Oral mucosa is somewhat dry. Heart sounds are regular and lungs have diminished breath sounds with poor inspiratory effort. Abdomen is markedly distended, and bowel sounds are present. He has a large amount of ascites. Extremities have generalized edema on both lower extremities. There is no cyanosis or clubbing. Neurologically, he is obtunded and not able to answer any questions. LABORATORY DATA: Today's labs show WBC count 11.3, hemoglobin 9.8, and hematocrit 29.1. Sodium 137, potassium 3.7, CO2 of 17, BUN 34, and creatinine 2.40. A lactic acid level was 4.3. A repeat one 4.1 and now most recent one 6.1. Calcium is 8.7. Total bilirubin 8.6, total protein 7.1, and albumin 2.5. PROBLEMS: 1. Acute renal failure superimposed on chronic kidney disease. Patient has known history of stage III of chronic kidney disease at baseline. He has elevated lactic acid level and probably sepsis related to either intra-abdominal infection or pneumonia. In any event, he should be treated with antibiotics. I would not recommend intravenous (IV) fluid at this point due to massive ascites and risk for worsening respiratory status. He is hemodynamically stable so far. One he gets paracentesis, I will recommend to give him IV albumin immediately before and after paracentesis and continue with every 6 hours IV albumin. Broad-spectrum antibiotics should also be given to cover for infection. 2. Cirrhosis of liver with ascites. Patient has large amount of ascites and is going to require paracentesis. Caution should be used for the amount of fluid removal, and IV albumin should be given in order to prevent hypotension. 3. Metabolic acidosis. Patient has mild metabolic acidosis, most likely related to lactic acidosis and acute renal failure. Once he gets paracentesis and remains stable, then we can consider low rate of IV sodium bicarbonate drip with 150 mEq of sodium bicarbonate at about 50-60 mL per hour. Thank you for involving me in the care of Mr. Briceno. Our nephrology service will follow him along with you.
--- NOTE | 2020-11-03 16:14 | REP ---
INDICATION: diagnositc and therapeutic COMPARISON: None. TECHNIQUE: The procedure was performed by Deloris Goodson [facility], under the direct supervision of Dr. Kidd The risks and benefits of the procedure were explained to the patient and an informed consent was obtained both verbally and written. Directly prior to the start of the procedure a formal time-out was completed in the procedure room. The largest pocket of fluid was localized in the right flank using ultrasound guidance. The skin was prepped and draped in a sterile fashion. Ten ML of 1% lidocaine 10 mg/ml was used as a local anesthetic. An 8-Thai multi side-hole catheter was inserted using trocar technique. FINDINGS: 13,400 mL of dark leonora ascites was removed and discarded. The patient tolerated the procedure well and there were no immediate complications. After the appropriate amount of monitored convalescence, the patient was discharged from the department. IMPRESSION: Ultrasound-guided paracentesis with removal of 13,400 mL of dark leonora ascites. <Electronically signed by Deloris Goodson > 11/03/20 1516 <Electronically signed by Maxwell Kidd > 11/03/20 1619
[2020-11-03] MEDS ORDERED: SODIUM BICARBONATE 150 MEQ in D5W 1,000 ML IV SCH (17:00)
[2020-11-03 22:12] LABS: CALCIUM LEVEL 8.1 MG/DL (8.8-10.2); CREATININE FOR GFR 2.48 MG/DL (0.70-1.30); GLOMERULAR FILTRATION RATE 28.4 (>49); POTASSIUM SERUM 3.5 MEQ/L (3.5-5.1)
[2020-11-04] VITALS (14 sets, daily range): BP systolic 92–174; BP diastolic 52–72
[2020-11-04 05:38] LABS: BASO % 0.3 % (0.0-1.0); HEMATOCRIT 31.1 % (42.0-52.0); HEMOGLOBIN 10.3 g/dl (13.5-17.5); LYMPH # 0.4 10^3/uL (1.5-5.0); MEAN CORPUSCULAR HEMOGLOBIN 34.7 pg (27.0-33.0); MEAN CORPUSCULAR HGB CONC 33.1 g/dl (32.0-36.5); MEAN CORPUSCULAR VOLUME 104.7 fl (80.0-96.0); MONO # 1.2 10^3/uL (0.0-0.8); NEUTROPHILS # 8.8 10^3/uL (1.5-8.5); NEUTROPHILS % 84.1 % (36.0-66.0); PLATELET COUNT, AUTOMATED 107 10^3/uL (150-450); RED BLOOD COUNT 2.97 10^6/uL (4.30-6.10); WHITE BLOOD COUNT 10.4 10^3/uL (4.0-10.0)
[2020-11-04] MEDS: METOPROLOL TART 12.5 MG PER 1/2 TAB PO SCH ×4 (06:00→18:00)
[2020-11-04 06:08] LABS: ALBUMIN 2.4 GM/DL (3.2-5.2); BILIRUBIN,TOTAL 7.6 MG/DL (0.2-1.0); CALCIUM LEVEL 8.4 MG/DL (8.8-10.2); CREATININE FOR GFR 2.47 MG/DL (0.70-1.30); GLOMERULAR FILTRATION RATE 28.6 (>49); MAGNESIUM LEVEL 1.7 MG/DL (1.8-2.4); POTASSIUM SERUM 3.6 MEQ/L (3.5-5.1); TOTAL PROTEIN 5.7 GM/DL (6.4-8.2)
[2020-11-04] MEDS: MULTIVITAMINS/MINERALS THERAP 1 TAB PO SCH (09:00)
[2020-11-04] MEDS: FOLIC ACID 1 MG TAB PO SCH (09:00)
[2020-11-04] MEDS ORDERED: MAG SULF 1GM/100ML (MAG RUN) 1 GM in IV 1 EA IV ONE (09:00)
[2020-11-04] MEDS: THIAMINE 100 MG TAB PO SCH ×2 (09:00→21:41)
[2020-11-04] MEDS: LORazepam 2 MG/ML VIAL IV PRN ×2 (09:23→13:15)
[2020-11-04] MEDS: cefTRIAXone SOD 1 GM in D5W MINI-BAG PLUS 50 ML IV SCH (09:24)
--- NOTE | 2020-11-04 11:04 | IPNPDOC ---
Subjective Date Seen The patient was seen on 11/04/20. Subjective Chief Complaint/HPI Patient awake but still remains confused and hallucinating. Mumbled speech, no fighting or aggressive at present . his CIWA is 17. Urinary incontinence. No fever No bowel movement. Objective Physical Examination General Exam: Positive: No Acute Distress, Other (confused and hallucinating) Eye Exam: Positive: PERRLA, Conjunctiva & lids normal, Sclera icteric ENT Exam: Positive: Atraumatic, Mucous membr. moist/pink, Pharynx Normal Neck Exam: Positive: Supple, JVD; Negative: thyromegaly Chest Exam: Positive: Normal air movement, Wheezing Heart Exam: Positive: Tachycardic, Irregular Rhythm, Normal S1; Negative: Rate Normal, Bradycardic, Regular Rhythm, Normal S2, Gallops Telemetry: Positive: Atrial fibrillation Abdomen Exam: Positive: Normal bowel sounds, Soft, Tenderness (all over), Hernia (umbilical hernia'), Other (large ascites); Negative: Hepatospenomegaly Extremity Exam: Positive: Edema; Negative: Clubbing, Cyanosis Psych Exam: Positive: Other (confused) Assessment /Plan Assessment 60 year old male with h/o alcohol abuse, CKD stage 3, h/o DVT x in the past in the left leg, chronic venous stasis, hypertension presented to ED with increa sing swelling of the abdomen, leg swelling, cough and shortness of breath. Patient reports that the swelling has been building up over the past 5 weeks and now has become so bad that he has been have difficulty breathing because of the belly pushing up against his chest. He has been unable to bend down and wear his compression stocking. He describes his abdomen feeling very tense and tight with a stretching kind of pain rated it at about 4/10 and no position in bed in giving him any comfort. Its present all over the abdomen. He also noted an umbilical hernia. He was found to have massive ascites. He was also noted to be in Afib with RVR in the ED. US of the legs revealed DVT acute vs subacute on the left leg. He was also noted to have MARJORIE. Labs were significant for lactic acidosis and an alcohol level of 0.116. Creatinine of 2.36, Bilirubin 6.5. Direct Bili 5.2, ammonia 39. His last drink was last night. He admits that he has been drinking almost all his life and very heavily in the last 5 years. 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 will start patient on lasix, aldactone, schedule for paracentesis tomorrow Albumin. will give lactulose. will start on empiric ceftriaxone for SBP. Acute metabolic encephalopathy due to acute ongoing alcohol withdrawal. may also develop hepatic encephalopathy will put on lactulose as needed. Ammonia normal at present. Ativan prn. haldol prn Continuos Alcohol abuse with acute withdrawal CIWA protocol in place ativan IV prn. Lactacidosis probably a combination of liver failure and alcohol. Due to associated renal failure will take longer to clear if at all. MARJORIE Cause could be due to fluid overload with decreased intravascular volume. Increased intra abdominal pressure from the massive ascites or hepatorenal syndrome Albumin Bicarb Cholestatic jaundice Due to cirrhosis will continue to monitor Hypomagnesemia replaced Nonocclusive DVT affecting the left femoral vein and left popliteal vein. Ac after procedure. Afib with RVR rate control with Digoxin and metoprolol. Echo. Will need to start AC after procedure and when patient alert and oriented will discuss anticoagulation Hepatic lobe Within the hepatic dome posteriorly, there is a 2.8 x 1.9 cm hypodense lesion need further evaluation for malignancy will need further testing like MRI could be done as outpatient. Right lung base atelectasis/ pneumonia i do not believe he has a pneumonia as no fever, no elevated WBC, no resp complaints. this looks like atelectasis. Lung nodule needs follow up CT. Plan/VTE VTE Prophylaxis Ordered?: Yes VS, I&O, 24H, Fishbone Vital Signs/I&O Vital Signs Date Time Temp Pulse Resp B/P (MAP) Pulse Ox O2 Delivery O2 Flow Rate FiO2 11/04/20 07:58 97.3 93 22 100/62 (75) 98 Nasal Cannula 2.0 I&O- Last 24 Hours up to 6 AM 11/04/20 06:00 Intake Total 200.0 ml Output Total 0 ml Balance 200.0 ml Laboratory Data 24H LABS Laboratory Tests 2 11/03/20 21:34: Anion Gap 11, Glomerular Filtration Rate 28.4L, Calcium Level 8.1L, Ammonia 37H 11/04/20 05:00: Anion Gap 9, Glomerular Filtration Rate 28.6L, Calcium Level 8.4L, Ammonia 19, Immature Granulocyte % (Auto) 0.6, Neutrophils (%) (Auto) 84.1H, Lymphocytes (%) (Auto) 4.0L, Monocytes (%) (Auto) 11.0H, Eosinophils (%) (Auto) 0.0, Basophils (%) (Auto) 0.3, Neutrophils # (Auto) 8.8H, Lymphocytes # (Auto) 0.4L, Monocytes # (Auto) 1.2H, Eosinophils # (Auto) 0.0, Basophils # (Auto) 0.0, Nucleated Red Blood Cells % (auto) 0.3H, Lactic Acid Level 2.1*H, Magnesium Level 1.7L, Total Bilirubin 7.6H, Aspartate Amino Transf (AST/SGOT) 58H, Alanine Aminotransferase (ALT/SGPT) 18, Alkaline Phosphatase 125H, Total Protein 5.7L, Albumin 2.4L, Albumin/Globulin Ratio 0.7 11/04/20 08:22: B-Hydroxybutyrate 8.43H 11/04/20 09:44: Lactic Acid Followup at 4 Hours 2.3*H CBC/BMP Laboratory Tests 11/03/20 21:34 11/04/20 05:00 BRIAN GOMEZ MD Nov 04, 2020 11:04
[2020-11-04] MEDS: HALOPERIDOL 5MG/ML VIAL (J1630 PER 1) IV PRN (13:15)
[2020-11-04] MEDS: HEPARIN SOD (PORCINE) 5000UNITS/ML 1ML VIAL/SYRINGE SQ SCH ×2 (13:15→21:41)
[2020-11-04] MEDS: [UNRECOGNIZED DRUG - OTHER] IV SCH ×5 (15:30)
[2020-11-04] MEDS: THIAMINE IV SCH ×5 (15:30)
[2020-11-04] MEDS: FOLIC ACID IV SCH ×5 (15:30)
[2020-11-04] MEDS: MULTIVITAMIN ADULT IV SCH ×5 (15:30)
[2020-11-04] MEDS: LORazepam 2 MG TAB PO PRN (18:16)
[2020-11-05] VITALS (11 sets, daily range): BP systolic 98–177; BP diastolic 56–79
--- NOTE | 2020-11-05 | IPN ---
NEPHROLOGY PROGRESS NOTE DATE: 11/04/2020 SUBJECTIVE: The patient was seen and examined at the bedside today morning. The patient is totally obtunded, not able to provide any review of systems. He got the paracentesis done yesterday. 13.4 liters of ascitic fluid was removed and discarded. No fluid was sent for analysis to the lab. The patient's renal function is stable since yesterday. Creatinine has been fluctuating at around 2.4. His lactic acid level was still high and the patient is in alcohol withdrawal at this time. OBJECTIVE: VITAL SIGNS: Temperature is 97.5 degrees Fahrenheit, blood pressure 93/70, pulse is 81, respiratory rate of 20, saturating 98% on nasal cannula at 2 liters. INTAKE AND OUTPUT: Urine output is not recorded. The patient is having incontinent voids and he got 13.4 liters of ascitic fluid removed yesterday. Weight in the bed scale is 91.8 kg. PHYSICAL EXAMINATION: GENERAL APPEARANCE: The patient is laying in bed, was completely obtunded. Eyes were closed, moving extremities purposelessly and not following any commands. HEAD AND NECK: Pupils are equally round and reactive to light. Mucous membranes are moist. Neck is supple. There is no jugular venous distention. CARDIOVASCULAR: S1, S2, regular rate. EXTREMITIES: 1+ edema of the bilateral lower extremities. RESPIRATORY: Chest is clear to auscultation bilaterally. Bilaterally currently no rales or rhonchi. ABDOMEN: Soft, positive bowel sounds. Mild amount of ascites was noted. There is a dressing in the right lower quadrant from recent paracentesis. GENITOURINARY: Bladder is not palpable. The patient has an umbilical hernia. MUSCULOSKELETAL: No clubbing, no cyanosis. Pulses are 2+. SENIOR COUNSEL: The patient is totally obtunded and does not follow commands. LAB REVIEW: CBC showed a WBC of 10.4, hemoglobin 10.3, platelets are 107. BMP showed sodium of 140, potassium 3.6, chloride 105, bicarbonate 26, BUN 45, creatinine is 2.4. Lactic acid was 2.3. beta hydroxybutyrate was 8.4. Albumin is 2.4. IMAGING: Paracentesis done yesterday with 13.4 liters of fluid removed. CURRENT INPATIENT MEDICATIONS: The patient's medications were all reviewed by myself. The patient is totally obtunded and he is in alcohol withdrawal and he has elevated lactic acid and beta hydroxybutyrate. I have started the patient on bicarbonate containing fluid with Multivitamin and KCL at 100 mL an hour. He has also been started on IV Ceftriaxone. He was also given a dose of Magnesium Sulfate one gram. IV bicarbonate fluid which was ordered yesterday has been stopped now. Lasix and Spironolactone have been stopped. No other change in the medications today as compared with yesterday. ASSESSMENT AND PLAN: 1. Acute renal failure superimposed on chronic kidney disease it is secondary to dehydration. The patient has alcohol induced acidosis. Avoid use of diuretics. Continue IV fluid hydration as mentioned above. 2. High anion gap metabolic acidosis - The patient has alcohol induced lactic acidosis and ketoacidosis. He needs dextrose containing IV fluids with magnesium, Multivitamins, thiamine, folic acid and potassium. IV fluids have been ordered. Another set of lactic acid and beta hydroxybutyrate will be checked in the morning. He will get fingerstick blood sugar checks every 4 hourly. 3. Decompensated cirrhosis with ascites - The patient got the ascitic tap done yesterday. No diuretic at this time because of lactic acidosis, ketoacidosis and dehydration. He is empirically being covered for SBP with IV Ceftriaxone. 4. Alcohol withdrawal - The patient is on Haldol and Ativan. The rest of the management is as per the Medical Team. RENA
[2020-11-05] MEDS: [UNRECOGNIZED DRUG - OTHER] IV SCH ×10 (01:37→12:50)
[2020-11-05] MEDS: MULTIVITAMIN ADULT IV SCH ×10 (01:37→12:50)
[2020-11-05] MEDS: LORazepam 2 MG/ML VIAL IV PRN ×2 (01:37→09:11)
[2020-11-05] MEDS: THIAMINE IV SCH ×10 (01:37→12:50)
[2020-11-05] MEDS: FOLIC ACID IV SCH ×10 (01:37→12:50)
[2020-11-05 04:36] LABS: CHLORIDE,RANDOM URINE 10 MEQ/L; SODIUM,RANDOM URINE < 10 MEQ/L
[2020-11-05 05:01] LABS: BASO % 0.3 % (0.0-1.0); EOS % 0.4 % (0.0-3.0); HEMATOCRIT 33.2 % (42.0-52.0); HEMOGLOBIN 11.5 g/dl (13.5-17.5); LYMPH # 0.5 10^3/uL (1.5-5.0); LYMPH % 5.4 % (24.0-44.0); MEAN CORPUSCULAR HEMOGLOBIN 35.8 pg (27.0-33.0); MEAN CORPUSCULAR HGB CONC 34.6 g/dl (32.0-36.5); MEAN CORPUSCULAR VOLUME 103.4 fl (80.0-96.0); MONO # 1.1 10^3/uL (0.0-0.8); MONO % 12.4 % (0.0-5.0); NEUTROPHILS # 7.3 10^3/uL (1.5-8.5); NEUTROPHILS % 80.6 % (36.0-66.0); PLATELET COUNT, AUTOMATED 105 10^3/uL (150-450); RED BLOOD COUNT 3.21 10^6/uL (4.30-6.10); WHITE BLOOD COUNT 9.1 10^3/uL (4.0-10.0)
[2020-11-05] MEDS: METOPROLOL TART 12.5 MG PER 1/2 TAB PO SCH ×5 (05:33→22:43)
[2020-11-05 05:36] LABS: ALBUMIN 2.1 GM/DL (3.2-5.2); CALCIUM LEVEL 8.2 MG/DL (8.8-10.2); CREATININE FOR GFR 2.26 MG/DL (0.70-1.30); GLOMERULAR FILTRATION RATE 31.7 (>49); MAGNESIUM LEVEL 1.8 MG/DL (1.8-2.4); POTASSIUM SERUM 3.5 MEQ/L (3.5-5.1); TOTAL PROTEIN 6.1 GM/DL (6.4-8.2)
[2020-11-05] MEDS: MULTIVITAMINS/MINERALS THERAP 1 TAB PO SCH (09:00)
[2020-11-05] MEDS: THIAMINE 100 MG TAB PO SCH (09:00)
[2020-11-05] MEDS: FOLIC ACID 1 MG TAB PO SCH (09:00)
[2020-11-05] MEDS ORDERED: THIAMINE 200MG/2ML VIAL (J3411 PER 100MG) IV SCH (09:00)
[2020-11-05] MEDS: cefTRIAXone SOD 1 GM in D5W MINI-BAG PLUS 50 ML IV SCH (09:10)
[2020-11-05] MEDS: HEPARIN SOD (PORCINE) 5000UNITS/ML 1ML VIAL/SYRINGE SQ SCH ×2 (09:11→20:49)
--- NOTE | 2020-11-05 10:47 | IPNPDOC ---
Subjective Date Seen The patient was seen on 11/05/20. Subjective Chief Complaint/HPI Confused , agitated and hallucinating, Sitter at bed side. incontinent. Objective Physical Examination General Exam: Positive: No Acute Distress, Other (confused and hallucinating, agitated) Eye Exam: Positive: PERRLA, Conjunctiva & lids normal, Sclera icteric ENT Exam: Positive: Atraumatic, Mucous membr. moist/pink, Pharynx Normal Neck Exam: Positive: Supple, JVD; Negative: thyromegaly Chest Exam: Positive: Normal air movement, Wheezing Heart Exam: Positive: Tachycardic, Irregular Rhythm, Normal S1; Negative: Rate Normal, Bradycardic, Regular Rhythm, Normal S2, Gallops Telemetry: Positive: Atrial fibrillation Abdomen Exam: Positive: Normal bowel sounds, Soft, Tenderness (all over), Hernia (umbilical hernia'), Other (large ascites); Negative: Hepatospenomegaly Extremity Exam: Positive: Edema; Negative: Clubbing, Cyanosis Psych Exam: Positive: Other (confused) Assessment /Plan Assessment 60 year old male with h/o alcohol abuse, CKD stage 3, h/o DVT x in the past in the left leg, chronic venous stasis, hypertension presented to ED with incre asing swelling of the abdomen, leg swelling, cough and shortness of breath. Patient reports that the swelling has been building up over the past 5 weeks and now has become so bad that he has been have difficulty breathing because of the belly pushing up against his chest. He has been unable to bend down and wear his compression stocking. He describes his abdomen feeling very tense and tight with a stretching kind of pain rated it at about 4/10 and no position in bed in giving him any comfort. Its present all over the abdomen. He also noted an umbilical hernia. He was found to have massive ascites. He was also noted to be in Afib with RVR in the ED. US of the legs revealed DVT acute vs subacute on the left leg. He was also noted to have MARJORIE. Labs were significant for lactic acidosis and an alcohol level of 0.116. Creatinine of 2.36, Bilirubin 6.5. Direct Bili 5.2, ammonia 39. His last drink was last night. He admits that he has been drinking almost all his life and very heavily in the last 5 years. 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 Received Albumin. on empiric ceftriaxone for SBP. Acute metabolic encephalopathy due to acute ongoing alcohol withdrawal with delirium tremens. may also develop hepatic encephalopathy will put on lactulose as needed. Ammonia normal at present. Ativan scheduled IV and PRN. haldol prn, IV thiamine and banana bag No po intake for 2 days. Continuos Alcohol abuse with acute withdrawal CIWA protocol in place ativan IV scheduled and prn. thiamine and folate, banana bag. Lactacidosis probably a combination of liver failure and alcohol. Due to associated renal failure will take longer to clear if at all. High anion gap metabolic acidosis due to lacticacidosis, alcohol ketosis on Banana bag. MARJORIE Cause could be due to fluid overload with decreased intravascular volume. Increased intra abdominal pressure from the massive ascites or hepatorenal syndrome Albumin Bicarb Cholestatic jaundice Due to cirrhosis will continue to monitor Hypomagnesemia replaced Nonocclusive DVT affecting the left femoral vein and left popliteal vein. Ac after procedure. Afib with RVR rate control with Digoxin and metoprolol. now rate mostly controlled except when he is getting agitated. Echo. Will need to start AC after procedure and when patient alert and oriented will discuss anticoagulation Hepatic lobe Within the hepatic dome posteriorly, there is a 2.8 x 1.9 cm hypodense lesion need further evaluation for malignancy will need further testing like MRI could be done as outpatient. Right lung base atelectasis/ pneumonia i do not believe he has a pneumonia as no fever, no elevated WBC, no resp complaints. this looks like atelectasis. Lung nodule needs follow up CT. Plan/VTE VTE Prophylaxis Ordered?: Yes VS, I&O, 24H, Fishbone Vital Signs/I&O Vital Signs Date Time Temp Pulse Resp B/P (MAP) Pulse Ox O2 Delivery O2 Flow Rate FiO2 11/05/20 10:15 89 117/66 11/05/20 08:00 96.9 19 97 Room Air 11/04/20 16:00 2.0 I&O- Last 24 Hours up to 6 AM 11/05/20 06:00 Intake Total 1490.0 ml Output Total 200 ml Balance 1290.0 ml Laboratory Data 24H LABS Laboratory Tests 2 11/04/20 18:53: Bedside Glucose (Misc Panel) 108 11/05/20 00:22: Bedside Glucose (Misc Panel) 106 11/05/20 04:00: Urine Random Creatinine 165.0, Urine Random Sodium < 10, Urine Random Potassium 37.0, Urine Random Chloride 10 11/05/20 04:41: Immature Granulocyte % (Auto) 0.9, Neutrophils (%) (Auto) 80.6H, Lymphocytes (%) (Auto) 5.4L, Monocytes (%) (Auto) 12.4H, Eosinophils (%) (Auto) 0.4, Basophils (%) (Auto) 0.3, Neutrophils # (Auto) 7.3, Lymphocytes # (Auto) 0.5L, Monocytes # (Auto) 1.1H, Eosinophils # (Auto) 0.0, Basophils # (Auto) 0.0, Nucleated Red Blood Cells % (auto) 0.2H, Anion Gap 9, Glomerular Filtration Rate 31.7L, Lactic Acid Level 2.8*H, Calcium Level 8.2L, Magnesium Level 1.8, Total Bilirubin 6.0H, Aspartate Amino Transf (AST/SGOT) 61H, Alanine Aminotransferase (ALT/SGPT) 20, Alkaline Phosphatase 117, Total Protein 6.1L, Albumin 2.1L, Albumin/Globulin Ratio 0.5, B-Hydroxybutyrate 3.28H 11/05/20 04:44: Bedside Glucose (Misc Panel) 106 CBC/BMP Laboratory Tests 11/05/20 04:41 BRIAN GOMEZ MD Nov 05, 2020 10:47
[2020-11-05] MEDS: LORazepam 2 MG/ML VIAL IV SCH ×2 (11:00→17:00)
[2020-11-05 16:08] LABS: APPEARANCE, URINE CLEAR (CLEAR); BACTERIA, URINE AUTO NEGATIVE (NEGATIVE); BILIRUBIN, URINE AUTO NEGATIVE (NEGATIVE); BLOOD, URINE BLOOD NEGATIVE (NEGATIVE); COLOR, URINE AMBER (YELLOW); GLUCOSE, URINE (UA) AUTO NEGATIVE (NEGATIVE); KETONE, URINE AUTO NEGATIVE (NEGATIVE); LEUKOCYTE ESTERASE, URINE AUTO NEGATIVE (NEGATIVE); MUCUS, URINE SMALL (NEGATIVE); NITRITE, URINE AUTO NEGATIVE (NEGATIVE); PROTEIN, URINE AUTO NEGATIVE (NEGATIVE); RBC, URINE AUTO 0 /HPF (0-3); SPECIFIC GRAVITY URINE AUTO 1.017 (1.002-1.035); SQUAMOUS EPITHELIAL CELL UR AU 1 /HPF (0-6); WBC, URINE AUTO 1 /HPF (0-3)
--- NOTE | 2020-11-05 20:52 | IPN ---
PROGRESS NOTE DATE: 11/05/2020 SUBJECTIVE: Patient was seen and examined at the bedside today morning. He has a one-to-one sitter at this time. He is still very confused and obtunded. He was actually sleeping when I saw him and I was told that he was awake at night and he got a dose of Ativan today morning and he was sleeping. He is not eating much. He continues to be on IV banana bag infusion that I started him on yesterday. His lactic acidosis is still mild persistent and ketoacidosis is improving. OBJECTIVE: Vital signs: Temperature is 96.9 degrees Fahrenheit, blood pressure 132/79, pulse is 119, respiratory rate of 19, saturating 97% on room air. Intake and output: Urine output recorded is 200 mL since overnight. Weight in the bed scale is 91.7 kg. PHYSICAL EXAMINATION: GENERAL: Patient is very sleepy, difficult to arouse. HEAD AND NECK EXAM: Pupils are reactive to light bilaterally. Mucous membranes are moist. Neck is supple. There is no jugular venous distension (JVD). CARDIOVASCULAR: S1, S2, regular rate. Trace edema of the bilateral lower extremities. RESPIRATORY: Chest is clear to auscultation bilaterally. ABDOMEN: Distended, umbilical hernia was noted, mild amount of ascites was noted. MUSCULOSKELETAL: Trace to 1+ edema of the bilateral lower extremities. CENTRAL NERVOUS SYSTEM (REAL ESTATE LEASING AGENT): Patient is very sleepy and drowsy at this time. LABORATORY REVIEW: CBC showed WBC of 9.1, hemoglobin 11.5, platelets are 105. BMP showed sodium 140, potassium 3.5, chloride 107, bicarbonate 24, BUN 47, creatinine is 2.2, lactic acid level was 2.8 today morning and repeat one was 2.2, calcium is 8.2, magnesium is 1.8, albumin 2.1, beta-hydroxybutyrate is 3.2 today. CURRENT INPATIENT MEDICATIONS: Patient's medications were all reviewed by myself. He continues to be on IV fluid hydration specially formulated fluid for his alcohol withdrawal which includes thiamine, folic acid, multivitamin, and sodium bicarbonate. Continue current IV fluid hydration at this time. Oral folic acid and IV daily thiamine has been stopped because he is getting multivitamin in the IV fluid. ASSESSMENT AND PLAN: 1. Acute renal failure superimposed on chronic kidney disease. Patient's renal function is improving. Continue gentle IV fluid hydration. Hold the diuretics for now. 2. High anion gap metabolic acidosis. It is secondary to lactic acidosis and ketoacidosis induced by alcohol. Continue bicarbonate containing fluid as mentioned above. Ketoacidosis is improving. He still has mild persistent lactic acidosis. 3. Decompensated cirrhosis with ascites status post ascitic tap. Continue empiric IV antibiotics for possible spontaneous bacterial peritonitis (SBP). Unfortunately, fluids were not sent for cell count and culture. 4. Alcohol withdrawal. Patient continues to be on Haldol and Ativan. Continue the banana bag infusion as mentioned above.
[2020-11-05] MEDS ORDERED: METOPROLOL 5 MG/5 ML VIAL IV ONE (21:30)
[2020-11-06] VITALS (10 sets, daily range): BP systolic 104–136; BP diastolic 60–86
[2020-11-06] MEDS: LORazepam 2 MG/ML VIAL IV SCH ×4 (00:14→18:07)
[2020-11-06] MEDS: MULTIVITAMIN ADULT IV SCH ×5 (00:14)
[2020-11-06] MEDS: [UNRECOGNIZED DRUG - OTHER] IV SCH ×5 (00:14)
[2020-11-06] MEDS: FOLIC ACID IV SCH ×5 (00:14)
[2020-11-06] MEDS: THIAMINE IV SCH ×5 (00:14)
[2020-11-06 05:55] LABS: BASO % 0.5 % (0.0-1.0); EOS # 0.1 10^3/uL (0.0-0.5); EOS % 1.4 % (0.0-3.0); HEMATOCRIT 32.2 % (42.0-52.0); HEMOGLOBIN 10.7 g/dl (13.5-17.5); LYMPH # 0.6 10^3/uL (1.5-5.0); LYMPH % 7.5 % (24.0-44.0); MEAN CORPUSCULAR HEMOGLOBIN 34.6 pg (27.0-33.0); MEAN CORPUSCULAR HGB CONC 33.2 g/dl (32.0-36.5); MEAN CORPUSCULAR VOLUME 104.2 fl (80.0-96.0); MONO # 1.3 10^3/uL (0.0-0.8); NEUTROPHILS # 5.6 10^3/uL (1.5-8.5); NEUTROPHILS % 72.8 % (36.0-66.0); PLATELET COUNT, AUTOMATED 114 10^3/uL (150-450); RED BLOOD COUNT 3.09 10^6/uL (4.30-6.10); WHITE BLOOD COUNT 7.7 10^3/uL (4.0-10.0)
[2020-11-06] MEDS: METOPROLOL TART 12.5 MG PER 1/2 TAB PO SCH ×3 (06:00→17:57)
[2020-11-06 06:22] LABS: ALBUMIN 2.2 GM/DL (3.2-5.2); BILIRUBIN,TOTAL 5.2 MG/DL (0.2-1.0); CALCIUM LEVEL 8.3 MG/DL (8.8-10.2); CREATININE FOR GFR 2.05 MG/DL (0.70-1.30); GLOMERULAR FILTRATION RATE 35.4 (>49); MAGNESIUM LEVEL 1.8 MG/DL (1.8-2.4); POTASSIUM SERUM 3.4 MEQ/L (3.5-5.1); TOTAL PROTEIN 5.6 GM/DL (6.4-8.2)
[2020-11-06] MEDS: cefTRIAXone SOD 1 GM in D5W MINI-BAG PLUS 50 ML IV SCH (09:10)
[2020-11-06] MEDS: HEPARIN SOD (PORCINE) 5000UNITS/ML 1ML VIAL/SYRINGE SQ SCH ×2 (09:10→22:18)
--- NOTE | 2020-11-06 09:58 | ECHO ---
DATE OF PROCEDURE: 11/03/2020 Age: 60 Gender: Male Height: 71 inches Weight: 196 pounds Body surface area: 2.06 m2 PATIENT LOCATION: Inpatient PCU, Room 3227. REFERRING PHYSICIAN: Elizabeth Fregoso MD. INDICATION: Congestive heart failure (CHF). MEASUREMENTS: 2D Measurements: RV 4.5 cm LV 5.3 cm Septum 1.4 cm Posterior wall 1.4 cm Aortic Root 3.6 cm LA 4.7 cm LVEF 35-40 % Doppler Measurements: AV 1.24 m/s LVOT 0.8 m/s MV-E 67 E prime medial 6.9, A prime medial 9 Average E/E prime ratio 8.4/PCWP 12.4 mmHg PV 0.75 m/s Pulmonary artery acceleration time 85 msec RVSP 50 mmHg IVC 2.5 cm COMMENTS: Underlying atrial fibrillation with fairly rapid ventricular response. No intraventricular conduction disturbance. M-mode and two-dimensional echocardiography was performed with pulse, continuous wave, color flow, and tissue Doppler studies. Moderate symmetrical left ventricular hypertrophy that appeared eccentric without reduction in left ventricular cavity size. There was obvious septal and apical wall motion abnormality suspected to be related to right ventricular pressure overload with at least moderate impairment of global resting systolic function. Moderately dilated left atrium with current estimated mean left atrial pressure upper limits of normal. Mildly dilated right ventricle with slightly reduced right ventricular wall motion and Doppler evidence of at least moderate pulmonary hypertension. Moderately dilated right atrium and prominently dilated inferior vena cava with absent respiratory collapse in keeping with an elevated central venous pressure. Normal aortic dimensions. Mild aortic valvular sclerosis without stenosis or apparent insufficiency. Mild thickening of the mitral annulus, but normal leaflet thickness and excursion with very mild posteriorly directed insufficiency. Normal appearing tricuspid valve with at least mild-moderate insufficiency. No apparent intracardiac mass or pericardial effusion. MTDD
--- NOTE | 2020-11-06 12:21 | IPNPDOC ---
Subjective Date Seen The patient was seen on 11/06/20. Subjective Chief Complaint/HPI more awake today , following commands. Objective Physical Examination General Exam: Positive: Alert, Cooperative, No Acute Distress, Other (intermittetly confused and fidgety) Eye Exam: Positive: PERRLA, Conjunctiva & lids normal, Sclera icteric ENT Exam: Positive: Atraumatic, Pharynx Normal, Other ENT (dry mucous membranes. ) Neck Exam: Positive: Supple, JVD; Negative: thyromegaly Chest Exam: Positive: Normal air movement, Wheezing Heart Exam: Positive: Tachycardic, Irregular Rhythm, Normal S1; Negative: Rate Normal, Bradycardic, Regular Rhythm, Normal S2, Gallops Abdomen Exam: Positive: Normal bowel sounds, Soft, Tenderness (all over), Hernia (umbilical hernia'), Other (large ascites); Negative: Hepatospenomegaly Extremity Exam: Positive: Edema; Negative: Clubbing, Cyanosis Psych Exam: Positive: Other (confused) Assessment /Plan Assessment 60 year old male with h/o alcohol abuse, CKD stage 3, h/o DVT x in the past in the left leg, chronic venous stasis, hypertension presented to ED with increasing swelling of the abdomen, leg swelling, cough and shortness of breath. Patient reports that the swelling has been building up over the past 5 weeks and now has become so bad that he has been have difficulty breathing because of the belly pushing up against his chest. He has been unable to bend down and wear his compression stocking. He describes his abdomen feeling very tense and tight with a stretching kind of pain rated it at about 4/10 and no position in bed in giving him any comfort. Its present all over the abdomen. He also noted an umbilical hernia. He was found to have massive ascites. He was also noted to be in Afib with RVR in the ED. US of the legs revealed DVT acute vs subacute on the left leg. He was also noted to have MARJORIE. Labs were significant for lactic acidosis and an alcohol level of 0.116. Creatinine of 2.36, Bilirubin 6.5. Direct Bili 5.2, ammonia 39. His last drink was last night. He admits that he has been drinking almost all his life and very heavily in the last 5 years. 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 Received Albumin. on empiric ceftriaxone for SBP. Acute metabolic encephalopathy due to acute ongoing alcohol withdrawal with delirium tremens. may also develop hepatic encephalopathy will put on lactulose as needed. Ammonia normal at present. Ativan scheduled IV and PRN. haldol prn, IV thiamine and banana bag Continuos Alcohol abuse with acute withdrawal CIWA protocol in place ativan IV scheduled and prn. thiamine and folate, banana bag. Lactacidosis probably a combination of liver failure and alcohol. Due to associated renal failure will take longer to clear if at all. High anion gap metabolic acidosis due to lacticacidosis, alcohol ketosis on Banana bag. MARJORIE Cause could be due to fluid overload with decreased intravascular volume. Increased intra abdominal pressure from the massive ascites or hepatorenal syndrome Albumin Bicarb Cholestatic jaundice Due to cirrhosis will continue to monitor Hypomagnesemia replaced Nonocclusive DVT affecting the left femoral vein and left popliteal vein. Ac after procedure. Afib with RVR rate control with Digoxin and metoprolol. now rate mostly controlled except when he is getting agitated. Echo. Will need to start AC after procedure and when patient alert and oriented will discuss anticoagulation Hepatic lobe Within the hepatic dome posteriorly, there is a 2.8 x 1.9 cm hypodense lesion need further evaluation for malignancy will need further testing like MRI could be done as outpatient. Right lung base atelectasis/ pneumonia i do not believe he has a pneumonia as no fever, no elevated WBC, no resp complaints. this looks like atelectasis. Lung nodule needs follow up CT. Plan/VTE VTE Prophylaxis Ordered?: Yes VS, I&O, 24H, Fishbone Vital Signs/I&O Vital Signs Date Time Temp Pulse Resp B/P (MAP) Pulse Ox O2 Delivery O2 Flow Rate FiO2 11/06/20 08:00 98.7 103 18 114/71 (85) 96 Room Air 11/04/20 16:00 2.0 I&O- Last 24 Hours up to 6 AM 11/06/20 06:00 Intake Total 1360 ml Output Total 0 ml Balance 1360 ml Laboratory Data 24H LABS Laboratory Tests 2 11/05/20 21:06: Bedside Glucose (Misc Panel) 109 11/06/20 03:20: Bedside Glucose (Misc Panel) 100 11/06/20 05:37: Immature Granulocyte % (Auto) 0.8, Neutrophils (%) (Auto) 72.8H, Lymphocytes (%) (Auto) 7.5L, Monocytes (%) (Auto) 17.0H, Eosinophils (%) (Auto) 1.4, Basophils (%) (Auto) 0.5, Neutrophils # (Auto) 5.6, Lymphocytes # (Auto) 0.6L, Monocytes # (Auto) 1.3H, Eosinophils # (Auto) 0.1, Basophils # (Auto) 0.0, Nucleated Red Blood Cells % (auto) 0.0, Anion Gap 10, Glomerular Filtration Rate 35.4L, Calcium Level 8.3L, Magnesium Level 1.8, Total Bilirubin 5.2H, Aspartate Amino Transf (AST/SGOT) 61H, Alanine Aminotransferase (ALT/SGPT) 23, Alkaline Phosphatase 122H, Total Protein 5.6L, Albumin 2.2L, Albumin/Globulin Ratio 0.6 11/06/20 07:50: Lactic Acid Level 2.3*H, B-Hydroxybutyrate 1.93 CBC/BMP Laboratory Tests 11/06/20 05:37 BRIAN GOMEZ MD Nov 06, 2020 12:21
[2020-11-06] MEDS: MULTIVITAMIN -ADULT INJECTION 10 ML, THIAMINE INJection 100 MG, FOLIC ACID 1 MG in NS 1... IV SCH (15:46)
[2020-11-06] MEDS: HALOPERIDOL 5MG/ML VIAL (J1630 PER 1) IV PRN (23:29)
[2020-11-07] VITALS (13 sets, daily range): BP systolic 105–135; BP diastolic 64–86
[2020-11-07] MEDS: LORazepam 2 MG/ML VIAL IV SCH ×3 (03:37→18:10)
[2020-11-07 04:46] LABS: BASO # 0.1 10^3/uL (0.0-0.2); BASO % 1.1 % (0.0-1.0); EOS # 0.1 10^3/uL (0.0-0.5); HEMATOCRIT 31.7 % (42.0-52.0); HEMOGLOBIN 10.8 g/dl (13.5-17.5); LYMPH # 0.5 10^3/uL (1.5-5.0); LYMPH % 7.6 % (24.0-44.0); MEAN CORPUSCULAR HGB CONC 34.1 g/dl (32.0-36.5); MEAN CORPUSCULAR VOLUME 105.7 fl (80.0-96.0); MONO # 1.2 10^3/uL (0.0-0.8); MONO % 17.4 % (0.0-5.0); NEUTROPHILS # 5.1 10^3/uL (1.5-8.5); NEUTROPHILS % 71.3 % (36.0-66.0); PLATELET COUNT, AUTOMATED 109 10^3/uL (150-450); WHITE BLOOD COUNT 7.1 10^3/uL (4.0-10.0)
[2020-11-07 05:10] LABS: ALBUMIN 2.5 GM/DL (3.2-5.2); CALCIUM LEVEL 8.5 MG/DL (8.8-10.2); CREATININE FOR GFR 1.97 MG/DL (0.70-1.30); GLOMERULAR FILTRATION RATE 37.1 (>49); MAGNESIUM LEVEL 1.7 MG/DL (1.8-2.4); POTASSIUM SERUM 3.4 MEQ/L (3.5-5.1); TOTAL PROTEIN 5.9 GM/DL (6.4-8.2)
[2020-11-07] MEDS: METOPROLOL TART 12.5 MG PER 1/2 TAB PO SCH ×5 (05:24→23:00)
[2020-11-07] MEDS: MULTIVITAMIN -ADULT INJECTION 10 ML, THIAMINE INJection 100 MG, FOLIC ACID 1 MG in NS 1... IV SCH (06:06)
[2020-11-07] MEDS ORDERED: SODIUM BICARBONATE 8.4% INJ 50MEQ 50 ML VIAL As Ordered ONE (08:32)
[2020-11-07] MEDS ORDERED: LORazepam 2 MG/ML VIAL As Ordered ONE (08:48)
[2020-11-07] MEDS: LORazepam 2 MG/ML VIAL IV PRN ×2 (08:50→21:45)
--- NOTE | 2020-11-07 08:56 | IPN ---
PROGRESS NOTE DATE: 11/06/2020 SUBJECTIVE: The patient was seen and examined at the bedside today morning. He is much more awake and alert today. He was eating breakfast with the help of nursing home assistant administrator in the morning when I saw him. He is complaining of abdominal bloating now. He continues to be on IV banana bag when I saw him in the morning. His lactic acid is improving and ketoacidosis has gotten better now. OBJECTIVE: Vital signs: Temperature is 97.8 degrees Fahrenheit, blood pressure 136/86, pulse is 93, respiratory rate of 18, saturating 94% on room air. Intake and output: Urine output is not recorded. He has been having incontinent voids. Weight in the bed scale is 92.1 kg. PHYSICAL EXAMINATION: General: The patient is awake, alert and oriented x2, sitting up in the bed. Head and neck examination: Pupils equally round and reactive to light. Mucus membranes are moist. Neck is supple. There is mildly elevated jugular venous distention (JVD). Cardiovascular: S1, S2 regular rate. Trace edema in bilateral lower extremities. Respiratory: Mildly decreased breath sounds at the bases. No other active rales or rhonchi. Abdomen is distended with moderate amount of ascites. Genitourinary (): Bladder is not palpable. He does have umbilical hernia. Musculoskeletal: Trace 1+ edema of the bilateral lower extremities. FORENSIC PSYCHIATRIST: The patient has mild asterixes; however, he is awake and he is following commands. LABORATORY REVIEW: Complete blood count (CBC) showed a WBC of 7.7, hemoglobin 10.7, platelets are 114. Basic metabolic panel (BMP) showed sodium 145, potassium 3.4, chloride 109, bicarbonate 26, BUN 44, creatinine is 2. Lactic acid is 2.3 in the morning and repeat one was 1.9. Beta-hydroxybutyrate is 1.9, which is within the normal range. The patient is getting more IV albumin now. CURRENT INPATIENT MEDICATIONS: The patient's medications were all reviewed by myself. His IV fluids have been stopped. He is getting IV ceftriaxone and is currently not on any diuretics at this time. ASSESSMENT AND PLAN: 1. Acute renal failure. The patient's renal function has improved with IV fluid hydration. Creatinine is 2, which is better than her admission creatinine. However, because of worsening ascites, I am stopping the further IV fluid hydration and he is getting the albumin at this time. 2. Hypokalemia. The patient will be given a dose of oral potassium. 3. Decompensated cirrhosis with ascites. The patient got the ascitic tap done on admission. Another tap will be done tomorrow morning. 4. High anion gap acidosis secondary to combination of lactic acidosis and ketoacidosis. The patient's ketoacidosis has resolved. Lactic acidosis is getting better with the administration of albumin. 5. Alcohol withdrawal. It is getting better. The patient is getting daily IV banana bag.
[2020-11-07] MEDS: FOLIC ACID 1 MG TAB PO SCH (09:00)
[2020-11-07] MEDS ORDERED: MAG SULF 1GM/100ML (MAG RUN) 1 GM in IV 1 EA IV ONE (09:00)
[2020-11-07] MEDS ORDERED: POTASSIUM CHLORIDE 10 MEQ SR TABLET PO ONE (09:30)
[2020-11-07 10:38] LABS: APPEARANCE, BODY FLUID HAZY (CLEAR); PERITONEAL FL COLOR YELLOW (COLORLESS); SOURCE, BODY FLUID PERITONEAL
[2020-11-07 10:41] LABS: SPEC. GRAVITY BODY FLUIDS 1.014 (NOT ESTABLISHED)
[2020-11-07 11:00] LABS: SOURCE, BODY FLUID ALBUMIN P.DIALYSIS; SOURCE, BODY FLUID GLUCOSE PERITONEAL; SOURCE, BODY FLUID TOT PROTEIN PERITONEAL; TOTAL PROTEIN, BODY FLUID 1.8 G/DL (NOT ESTABLISHED)
[2020-11-07] MEDS: THIAMINE 100 MG TAB PO SCH ×2 (11:10→21:45)
[2020-11-07] MEDS: cefTRIAXone SOD 1 GM in D5W MINI-BAG PLUS 50 ML IV SCH (11:11)
[2020-11-07] MEDS: HEPARIN SOD (PORCINE) 5000UNITS/ML 1ML VIAL/SYRINGE SQ SCH ×2 (11:11→21:45)
--- NOTE | 2020-11-07 12:19 | IPNPDOC ---
Subjective Date Seen The patient was seen on 11/07/20. Subjective Chief Complaint/HPI Remains about the same as yesterday, awake and alert but still confused. Not much oral intake. Going for repeat paracentesis today Objective Physical Examination General Exam: Positive: Alert, Cooperative, No Acute Distress, Other (intermittetly confused and fidgety) Eye Exam: Positive: PERRLA, Conjunctiva & lids normal, Sclera icteric ENT Exam: Positive: Atraumatic, Pharynx Normal, Other ENT (dry mucous membranes. ) Neck Exam: Positive: Supple, JVD; Negative: thyromegaly Chest Exam: Positive: Normal air movement, Wheezing Heart Exam: Positive: Tachycardic, Irregular Rhythm, Normal S1; Negative: Rate Normal, Bradycardic, Regular Rhythm, Normal S2, Gallops Abdomen Exam: Positive: Normal bowel sounds, Soft, Tenderness (all over), Hernia (umbilical hernia'), Other (large ascites); Negative: Hepatospenomegaly Extremity Exam: Positive: Edema; Negative: Clubbing, Cyanosis Psych Exam: Positive: Other (confused) Assessment /Plan Assessment 60 year old male with h/o alcohol abuse, CKD stage 3, h/o DVT x in the past in the left leg, chronic venous stasis, hypertension presented to ED with increasing swelling of the abdomen, leg swelling, cough and shortness of breath. Patient reports that the swelling has been building up over the past 5 weeks and now has become so bad that he has been have difficulty breathing because of the belly pushing up against his chest. He has been unable to bend down and wear his compression stocking. He describes his abdomen feeling very tense and tight with a stretching kind of pain rated it at about 4/10 and no position in bed in gi ving him any comfort. Its present all over the abdomen. He also noted an umbilical hernia. He was found to have massive ascites. He was also noted to be in Afib with RVR in the ED. US of the legs revealed DVT acute vs subacute on the left leg. He was also noted to have MARJROIE. Labs were significant for lactic acidosis and an alcohol level of 0.116. Creatinine of 2.36, Bilirubin 6.5. Direct Bili 5.2, ammonia 39. His last drink was last night. He admits that he has been drinking almost all his life and very heavily in the last 5 years. 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 Received Albumin. on empiric ceftriaxone for SBP. Acute metabolic encephalopathy due to acute ongoing alcohol withdrawal with delirium tremens. may also develop hepatic encephalopathy will put on lactulose as needed. Ammonia normal at present. Ativan scheduled IV and PRN. haldol prn, IV thiamine Continuos Alcohol abuse with acute withdrawal CIWA protocol in place ativan IV scheduled and prn. thiamine and folate, banana bag. Lactacidosis Now resolved probably a combination of liver failure and alcohol. Due to associated renal failure took longer to clear if High anion gap metabolic acidosis due to lacticacidosis, alcohol ketosis now resolved. MARJORIE fluid overload, Increased intra abdominal pressure from the massive ascites or hepatorenal syndrome Albumin given , had paracentesis x 2 nephro following. Cholestatic jaundice Due to cirrhosis will continue to monitor Hypomagnesemia replaced Nonocclusive DVT affecting the left femoral vein and left popliteal vein. Ac after procedure. Afib with RVR rate controlled at present . Has metoprolol order in place. now rate mostly controlled except when he is getting agitated. Echo. Will need to start AC after procedure and when patient alert and oriented will discuss anticoagulation Hepatic lobe Within the hepatic dome posteriorly, there is a 2.8 x 1.9 cm hypodense lesion need further evaluation for malignancy will need further testing like MRI could be done as outpatient. Right lung base atelectasis/ pneumonia i do not believe he has a pneumonia as no fever, no elevated WBC, no resp complaints. this looks like atelectasis. Lung nodule needs follow up CT. Plan/VTE VTE Prophylaxis Ordered?: Yes VS, I&O, 24H, Fishbone Vital Signs/I&O Vital Signs Date Time Temp Pulse Resp B/P (MAP) Pulse Ox O2 Delivery O2 Flow Rate FiO2 11/07/20 09:06 97.7 98 20 119/81 (94) 99 Room Air 11/04/20 16:00 2.0 I&O- Last 24 Hours up to 6 AM 11/07/20 06:00 Intake Total 1300.0 ml Output Total 150 ml Balance 1150.0 ml Laboratory Data 24H LABS Laboratory Tests 2 11/07/20 04:26: Immature Granulocyte % (Auto) 0.6, Neutrophils (%) (Auto) 71.3H, Lymphocytes (%) (Auto) 7.6L, Monocytes (%) (Auto) 17.4H, Eosinophils (%) (Auto) 2.0, Basophils (%) (Auto) 1.1H, Neutrophils # (Auto) 5.1, Lymphocytes # (Auto) 0.5L, Monocytes # (Auto) 1.2H, Eosinophils # (Auto) 0.1, Basophils # (Auto) 0.1, Nucleated Red Blood Cells % (auto) 0.0, Anion Gap 9, Glomerular Filtration Rate 37.1L, Calcium Level 8.5L, Magnesium Level 1.7L, Total Bilirubin 5.0H, Aspartate Amino Transf (AST/SGOT) 62H, Alanine Aminotransferase (ALT/SGPT) 25, Alkaline Phosphatase 137H, Total Protein 5.9L, Albumin 2.5L, Albumin/Globulin Ratio 0.7 11/07/20 09:40: Body Fluid Specific [place] 1.014, Body Fluid WBC (Auto) 132H, Body Fluid RBC (Auto) < 2, Body Fluid Mononuclear Cells % Auto 80.3H, Fluid Polymorphonuclear Cell % Auto 19.7H, Body Fluid Glucose Source PERITONEAL, Body Fluid Glucose 91, Body Fluid Protein Source PERITONEAL, Body Fluid Total Protein 1.8, Body Fluid Albumin Source P.DIALYSIS, Body Fluid Albumin 0.7, Peritoneal Fluid Source PERITONEAL, Peritoneal Fluid Color YELLOW, Peritoneal Fluid Appearance HAZY CBC/BMP Laboratory Tests 11/07/20 04:26 Microbiology Microbiology 11/07/20 Gram Stain, Received Pending 11/07/20 Body Fluid Culture, Received Pending BRIAN GOMEZ MD Nov 07, 2020 12:19
--- NOTE | 2020-11-07 16:53 | REP ---
INDICATION: please sent the fluid studies ordered. The patient has a history of ascites COMPARISON: None. TECHNIQUE: The procedure was performed by LATRICIA Teresa, under the direct supervision of Dr. Hazel The risks and benefits of the procedure were explained to the patient and an informed consent was obtained both verbally and written. Directly prior to the start of the procedure a formal time-out was completed in the procedure room. The largest pocket of fluid was localized in the right flank using ultrasound guidance. The skin was prepped and draped in a sterile fashion. Eight ML of 1% lidocaine 10 mg/ml was used as a local anesthetic. An 8-Frisian multi side-hole catheter was inserted using trocar technique. FINDINGS: Eight thousand four hundred mL of leonora ascites was removed in total, 1400 was sent to the lab for further analysis. The patient tolerated the procedure well and there were no immediate complications. After the appropriate amount of monitored convalescence, the patient was discharged from the department. IMPRESSION: Ultrasound-guided paracentesis with removal of the 8400 mL of leonora ascites. <Electronically signed by Deloris Goodson > 11/07/20 1119 <Electronically signed by Gopi Hazel > 11/07/20 [id number]
[2020-11-07] MEDS: HALOPERIDOL 5MG/ML VIAL (J1630 PER 1) IV PRN (23:33)
[2020-11-08] VITALS (8 sets, daily range): BP systolic 105–137; BP diastolic 64–93
[2020-11-08] MEDS: LORazepam 2 MG/ML VIAL IV SCH ×3 (03:16→18:12)
[2020-11-08] MEDS: METOPROLOL TART 12.5 MG PER 1/2 TAB PO SCH ×5 (05:22→23:50)
[2020-11-08 05:40] LABS: BASO # 0.1 10^3/uL (0.0-0.2); BASO % 1.2 % (0.0-1.0); EOS # 0.2 10^3/uL (0.0-0.5); EOS % 2.5 % (0.0-3.0); HEMATOCRIT 32.9 % (42.0-52.0); HEMOGLOBIN 11.2 g/dl (13.5-17.5); LYMPH # 0.5 10^3/uL (1.5-5.0); LYMPH % 6.9 % (24.0-44.0); MEAN CORPUSCULAR HEMOGLOBIN 35.9 pg (27.0-33.0); MEAN CORPUSCULAR VOLUME 105.4 fl (80.0-96.0); MONO # 1.2 10^3/uL (0.0-0.8); MONO % 17.8 % (0.0-5.0); NEUTROPHILS # 4.6 10^3/uL (1.5-8.5); RED BLOOD COUNT 3.12 10^6/uL (4.30-6.10); WHITE BLOOD COUNT 6.5 10^3/uL (4.0-10.0)
[2020-11-08 05:57] LABS: PLATELET COUNT, AUTOMATED 93 10^3/uL (150-450)
[2020-11-08 06:09] LABS: ALBUMIN 2.6 GM/DL (3.2-5.2); CALCIUM LEVEL 8.7 MG/DL (8.8-10.2); CREATININE FOR GFR 1.74 MG/DL (0.70-1.30); GLOMERULAR FILTRATION RATE 42.8 (>49); MAGNESIUM LEVEL 1.9 MG/DL (1.8-2.4); POTASSIUM SERUM 3.9 MEQ/L (3.5-5.1); TOTAL PROTEIN 5.8 GM/DL (6.4-8.2)
--- NOTE | 2020-11-08 08:23 | IPN ---
PROGRESS NOTE DATE: 11/07/2020 SUBJECTIVE: The patient was seen and examined at the bedside today morning. He had just come back after getting his paracentesis done. He was sleepy and drowsy when I saw him. Renal function is stable. Creatinine is actually improved to 1.9 today. He is unable to provide me any review of systems. OBJECTIVE: VITAL SIGNS: Temperature is 97.8 degrees Fahrenheit, blood pressure is 115/71, pulse is 89, respiratory rate is 20, saturating 98% on room air. INTAKE AND OUTPUT: Urine output recorded as 150 ml. He has incontinent voids. Weight on the bed scale is 93 kg. GENERAL: The patient is obtunded and sleepy, laying in bed. HEAD AND NECK: Mucous membranes are moist. Neck is supple. There is no JVD. CARDIOVASCULAR: S1 and S2 regular, 1+ edema of the bilateral lower extremities. RESPIRATORY: Clear to auscultation bilaterally. Bilateral equal air entry. No rales or rhonchi. ABDOMEN: Soft, positive bowel sounds. He just got paracentesis done. There is a very mild amount of ascites. MUSCULOSKELETAL: 1+ edema of the bilateral lower extremities. EDITING COMPUTER PUBLISHER: The patient is obtunded at this time. LABORATORY DATA: CBC showed a WBC of 7.1, hemoglobin of 10.8, platelets were 109,000. Peritoneal fluid cell count is 132 with almost 20% polymorphonuclears. BMP done today morning showed a sodium of 146, potassium of 3.4, chloride 110, bicarbonate 27, BUN 44, creatinine is 1.9, it was 2 yesterday. Magnesium is 1.8. Albumin was 2.5. The patient continues to be on IV albumin infusion. CURRENT INPATIENT MEDICATIONS: The patient's IV banana bag has been stopped. He continues to be on IV Ceftriaxone. He is currently not on any diuretics at this time. ASSESSMENT AND PLAN: 1. Acute renal failure. Patient got the ascitic tap done today. He is getting IV albumin, hold the diuretics at this time. 2. Hypokalemia. Potassium level is improving. 3. Decompensated cirrhosis with ascites. Patient got the ascitic tap done today. 4. High anion gap metabolic acidosis. Acidosis is getting better. He has lactic acidosis and ketoacidosis resolved yesterday.
[2020-11-08] MEDS: FOLIC ACID 1 MG TAB PO SCH (09:00)
[2020-11-08] MEDS: THIAMINE 100 MG TAB PO SCH ×2 (09:00→21:00)
[2020-11-08] MEDS: HEPARIN SOD (PORCINE) 5000UNITS/ML 1ML VIAL/SYRINGE SQ SCH ×2 (09:00→22:23)
[2020-11-08] MEDS: cefTRIAXone SOD 1 GM in D5W MINI-BAG PLUS 50 ML IV SCH (09:50)
[2020-11-08] MEDS ORDERED: D5W 1,000 ML IV SCH (10:00)
--- NOTE | 2020-11-08 12:46 | IPNPDOC ---
Subjective Date Seen The patient was seen on 11/08/20. Subjective Chief Complaint/HPI Remains confused. Does not know where he is. Thinks he is in his living room and wants to go to [email or web address] which he tells me he and his sister owns. He knows his daughter's name and where she lives. He asks me to let him go and that he would call 911 and come back tomorrow. Not much oral intake. Objective Physical Examination General Exam: Positive: Alert, Cooperative, No Acute Distress, Other (intermittetly confused and fidgety) Eye Exam: Positive: PERRLA, Conjunctiva & lids normal, Sclera icteric ENT Exam: Positive: Atraumatic, Pharynx Normal, Other ENT (dry mucous membranes. ) Neck Exam: Positive: Supple, JVD; Negative: thyromegaly Chest Exam: Positive: Normal air movement, Wheezing Heart Exam: Positive: Tachycardic, Irregular Rhythm, Normal S1; Negative: Rate Normal, Bradycardic, Regular Rhythm, Normal S2, Gallops Abdomen Exam: Positive: Normal bowel sounds, Soft, Tenderness (all over), Hernia (umbilical hernia'), Other (large ascites); Negative: Hepatospenomegaly Extremity Exam: Positive: Edema; Negative: Clubbing, Cyanosis Psych Exam: Positive: Other (confused) Assessment /Plan Assessment 60 year old male with h/o alcohol abuse, CKD stage 3, h/o DVT x in the past in the left leg, chronic venous stasis, hypertension presented to ED with increasing swelling of the abdomen, leg swelling, cough and shortness of breath. Patient reports that the swelling has been building up over the past 5 weeks and now has become so bad that he has been have difficulty breathing because of the belly pushing up against his chest. He has been unable to bend down and wear his compression stocking. He describes his abdomen feeling very tense and tight with a stretching kind of pain rated it at about 4/10 and no position in bed in giving him any comfort. Its present all over the abdomen. He also noted an umbilical hernia. He was found to have massive ascites. He was also noted to be in Afib with RVR in the ED. US of the legs revealed DVT acute vs subacute on the left leg. He was also noted to have MARJORIE. Labs were significant for lactic acidosis and an alcohol level of 0.116. Creatinine of 2.36, Bilirubin 6.5. Direct Bili 5.2, ammonia 39. His last drink was last night. He admits that he has been drinking almost all his life and very heavily in the last 5 years. He was admitted for Decompensated cirrhosis of liver with massive ascites, pos sibly varices, cholestasis, MARJORIE, Afib with RVR and DVT of left leg acute Vs subacute Decompensated Alcoholic cirrhosis of liver with ascites, varices seen in CT, thrombocytopenia MELD score of 26 with 90 day mortality up to 15%. Received Albumin. on empiric ceftriaxone for SBP. Acute metabolic encephalopathy due to acute ongoing alcohol withdrawal with delirium tremens. may also develop hepatic encephalopathy will put on lactulose as needed. Ammonia normal at present. Ativan scheduled IV and PRN. haldol prn, IV thiamine Continuos Alcohol abuse with acute withdrawal CIWA protocol in place ativan IV scheduled and prn. thiamine and folate, banana bag. Lactacidosis Now resolved probably a combination of liver failure and alcohol. Due to associated renal failure took longer to clear if High anion gap metabolic acidosis due to lacticacidosis, alcohol ketosis now resolved. MARJORIE fluid overload, Increased intra abdominal pressure from the massive ascites or hepatorenal syndrome Albumin given , had paracentesis x 2 nephro following. Cholestatic jaundice Due to cirrhosis will continue to monitor Hypomagnesemia replaced Nonocclusive DVT affecting the left femoral vein and left popliteal vein. Ac after procedure. Afib with RVR rate controlled at present . Has metoprolol order in place. now rate mostly controlled except when he is getting agitated. Echo. Will need to start AC after procedure and when patient alert and oriented will discuss anticoagulation Hepatic lobe Within the hepatic dome posteriorly, there is a 2.8 x 1.9 cm hypodense lesion need further evaluation for malignancy will need further testing like MRI could be done as outpatient. Right lung base atelectasis/ pneumonia i do not believe he has a pneumonia as no fever, no elevated WBC, no resp complaints. this looks like atelectasis. Lung nodule needs follow up CT. Plan/VTE VTE Prophylaxis Ordered?: Yes VS, I&O, 24H, Fishbone Vital Signs/I&O Vital Signs Date Time Temp Pulse Resp B/P (MAP) Pulse Ox O2 Delivery O2 Flow Rate FiO2 11/08/20 12:09 97.2 92 20 122/75 (91) 95 Room Air 11/04/20 16:00 2.0 I&O- Last 24 Hours up to 6 AM 11/08/20 06:00 Intake Total 870.0 ml Output Total 0 ml Balance 870.0 ml Laboratory Data 24H LABS Laboratory Tests 2 11/08/20 05:21: Immature Granulocyte % (Auto) 0.6, Neutrophils (%) (Auto) 71.0H, Lymphocytes (%) (Auto) 6.9L, Monocytes (%) (Auto) 17.8H, Eosinophils (%) (Auto) 2.5, Basophils (%) (Auto) 1.2H, Neutrophils # (Auto) 4.6, Lymphocytes # (Auto) 0.5L, Monocytes # (Auto) 1.2H, Eosinophils # (Auto) 0.2, Basophils # (Auto) 0.1, Nucleated Red Blood Cells % (auto) 0.0, Immature Platelet Fraction 3.9, Anion Gap 9, Glomerular Filtration Rate 42.8L, Calcium Level 8.7L, Magnesium Level 1.9, Total Bilirubin 5.0H, Aspartate Amino Transf (AST/SGOT) 63H, Alanine Aminotransferase (ALT/SGPT) 24, Alkaline Phosphatase 126H, Total Protein 5.8L, Albumin 2.6L, Albumin/Globulin Ratio 0.8 CBC/BMP Laboratory Tests 11/08/20 05:21 Microbiology Microbiology 11/07/20 Gram Stain - Final, Resulted 11/07/20 Body Fluid Culture, Resulted Pending BRIAN GOMEZ MD Nov 08, 2020 12:46
[2020-11-08] MEDS: HALOPERIDOL 5MG/ML VIAL (J1630 PER 1) IV PRN (13:00)
[2020-11-08] MEDS ORDERED: METOPROLOL 5 MG/5 ML VIAL IV PRN (20:00)
[2020-11-08] MEDS ORDERED: LACTULOSE 20 GM/30 ML SYRUP UD PR ONE (20:00)
[2020-11-09] VITALS (9 sets, daily range): BP systolic 102–122; BP diastolic 56–105
[2020-11-09] MEDS ORDERED: LORazepam 2 MG/ML VIAL As Ordered ONE (04:13)
[2020-11-09] MEDS: LORazepam 2 MG/ML VIAL IV SCH ×2 (04:30→11:00)
[2020-11-09 05:46] LABS: BASO # 0.1 10^3/uL (0.0-0.2); BASO % 1.1 % (0.0-1.0); EOS # 0.2 10^3/uL (0.0-0.5); EOS % 3.3 % (0.0-3.0); HEMATOCRIT 33.1 % (42.0-52.0); LYMPH # 0.6 10^3/uL (1.5-5.0); LYMPH % 8.3 % (24.0-44.0); MEAN CORPUSCULAR HEMOGLOBIN 34.8 pg (27.0-33.0); MEAN CORPUSCULAR HGB CONC 33.2 g/dl (32.0-36.5); MEAN CORPUSCULAR VOLUME 104.7 fl (80.0-96.0); MONO # 1.1 10^3/uL (0.0-0.8); MONO % 17.2 % (0.0-5.0); NEUTROPHILS # 4.6 10^3/uL (1.5-8.5); NEUTROPHILS % 69.6 % (36.0-66.0); PLATELET COUNT, AUTOMATED 89 10^3/uL (150-450); RED BLOOD COUNT 3.16 10^6/uL (4.30-6.10); WHITE BLOOD COUNT 6.6 10^3/uL (4.0-10.0)
[2020-11-09] MEDS: METOPROLOL TART 12.5 MG PER 1/2 TAB PO SCH ×3 (06:00→18:00)
[2020-11-09 06:17] LABS: ALBUMIN 2.3 GM/DL (3.2-5.2); BILIRUBIN,TOTAL 4.3 MG/DL (0.2-1.0); CALCIUM LEVEL 8.8 MG/DL (8.8-10.2); CREATININE FOR GFR 1.83 MG/DL (0.70-1.30); GLOMERULAR FILTRATION RATE 40.4 (>49); MAGNESIUM LEVEL 1.7 MG/DL (1.8-2.4); POTASSIUM SERUM 3.4 MEQ/L (3.5-5.1); TOTAL PROTEIN 5.5 GM/DL (6.4-8.2)
[2020-11-09] MEDS: MAG SULF 1GM/100ML (MAG RUN) 1 GM in IV 1 EA IV SCH ×2 (08:51→10:39)
[2020-11-09] MEDS: cefTRIAXone SOD 1 GM in D5W MINI-BAG PLUS 50 ML IV SCH (09:15)
--- NOTE | 2020-11-09 09:44 | IPN ---
PROGRESS NOTE DATE: 11/08/2020 SUBJECTIVE: The patient was seen and examined at the bedside today morning. He was very obtunded and encephalopathic when I saw him. He has a 1:1 sitter in the room. Looking at the labs his renal function is stable and improving and the patient is getting hypernatremic. I was told by the 1:1 sitter the patient is hardly eating anything. OBJECTIVE: VITAL SIGNS: Temperature is 96.6 degrees Fahrenheit, blood pressure is 126/69, pulse is 88, respiratory rate is 20, saturating 99% on room air. INTAKE AND OUTPUT: Urine output is not being recorded. He has incontinent voids. Weight on the bed scale is 84.4 kg which is not reliable because there is 10 kg difference since yesterday. GENERAL: Patient is obtunded, encephalopathic laying in bed, slightly restless. HEAD AND NECK: Eyes are closed. Mucous membranes are moist. NECK: Supple. There is no JVD. CARDIOVASCULAR: S1 and S2, regular rate. Trace to 1+ edema of the lower extremities. RESPIRATORY: Chest is clear to auscultation bilaterally. Bilateral equal air entry. No rales or rhonchi. ABDOMEN: Soft, positive bowel sounds. A mild amount of ascites is noted. GENITOURINARY: Bladder is not palpable. LABORATORY DATA: CBC showed a WBC of 6.5, hemoglobin 11.2, platelets are 93,000. BMP showed a sodium of 149, potassium 3.9, chloride 114, bicarbonate 26, BUN 40, creatinine is 1.74. Calcium is 8.7. Magnesium is 1.9. Total bilirubin is 5. Albumin is 2.6. The patient is getting IV 25% albumin. CURRENT INPATIENT MEDICATIONS: The patient's medications were all reviewed by myself. I had started the patient on D5W at 100 ml for an hour for a total of one bag. No other significant change in the medications today as compared with yesterday. ASSESSMENT AND PLAN: 1. Acute renal failure. It is secondary to decompensated cirrhosis. Patient is getting IV albumin. Blood pressures are okay. No need for Midodrine at this time. Renal function is gradually improving. 2. Hypernatremia, it is secondary to decreased oral intake. I have ordered 1 liter of D5W IV. 3. Hypokalemia. The patient level is improved to 3.9 today. 4. Decompensated cirrhosis with ascites. Patient is not a candidate for diuretics at this time because of recurrent acute renal failure. He is getting ascitic taps. 5. Alcohol withdrawal. The patient is getting p.r.n. Ativan.
[2020-11-09] MEDS ORDERED: MULTIVITAMIN -ADULT INJECTION 10 ML, THIAMINE INJection 100 MG, FOLIC ACID 1 MG in NS 1... IV ONE (11:00)
--- NOTE | 2020-11-09 11:28 | IPNPDOC ---
Subjective Date Seen The patient was seen on 11/09/20. Subjective Chief Complaint/HPI Was very somnolent overnight. Received lactulose enema. remains confused though answering a few questions. Poor oral intake. Objective Physical Examination General Exam: Positive: Cooperative, No Acute Distress, Other (confused and fidgety sometimes very somnolent) Eye Exam: Positive: PERRLA, Conjunctiva & lids normal, Sclera icteric ENT Exam: Positive: Atraumatic, Pharynx Normal, Other ENT (dry mucous membranes. ) Neck Exam: Positive: Supple, JVD; Negative: thyromegaly Chest Exam: Positive: Clear to auscultation, Normal air movement Heart Exam: Positive: Rate Normal, Irregular Rhythm, Normal S1; Negative: Bradycardic, Regular Rhythm, Normal S2, Gallops Abdomen Exam: Positive: Normal bowel sounds, Soft, Tenderness (all over), Hernia (umbilical hernia'), Other (large ascites); Negative: Hepatospenomegaly Extremity Exam: Positive: Edema; Negative: Clubbing, Cyanosis Psych Exam: Positive: Other (confused) Assessment /Plan Assessment 60 year old male with h/o alcohol abuse, CKD stage 3, h/o DVT x in the past in the left leg, chronic venous stasis, hypertension presented to ED with increasing swelling of the abdomen, leg swelling, cough and shortness of breath. Patient reports that the swelling has been building up over the past 5 weeks and now has become so bad that he has been have difficulty breathing because of the belly pushing up against his chest. He has been unable to bend down and wear his compression stocking. He describes his abdomen feeling very tense and tight with a stretching kind of pain rated it at about 4/10 and no position in bed in givi ng him any comfort. Its present all over the abdomen. He also noted an umbilical hernia. He was found to have massive ascites. He was also noted to be in Afib with RVR in the ED. US of the legs revealed DVT acute vs subacute on the left leg. He was also noted to have MARJORIE. Labs were significant for lactic acidosis and an alcohol level of 0.116. Creatinine of 2.36, Bilirubin 6.5. Direct Bili 5.2, ammonia 39. His last drink was last night. He admits that he has been drinking almost all his life and very heavily in the last 5 years. 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 Received Albumin. on empiric ceftriaxone for SBP. Ascitic fluid culture negative Acute metabolic encephalopathy due to acute ongoing alcohol withdrawal with delirium tremens. may also develop hepatic encephalopathy will put on lactulose as needed. Ammonia normal at present. Ativan scheduled IV and PRN. haldol prn, IV thiamine Continuos Alcohol abuse with acute withdrawal CIWA protocol in place ativan IV scheduled and prn. thiamine and folate, banana bag. Lactacidosis Now resolved probably a combination of liver failure and alcohol. Due to associated renal failure took longer to clear if High anion gap metabolic acidosis due to lacticacidosis, alcohol ketosis now resolved. MARJORIE fluid overload, Increased intra abdominal pressure from the massive ascites or hepatorenal syndrome Albumin given , had paracentesis x 2 nephro following. Hypernatremia due to poor oral free water intake. will correct. Afib with RVR Has metoprolol order in place. now rate mostly controlled except when he is getting agitated. Echo noted. Will need to start AC after procedure and when patient alert and oriented will discuss anticoagulation Systolic CHF acute on chronic with moderate pulmonary hypertension and right heart failure EF of 35% to 40% Eccentric LVH, Mild MR. Very poor oral intake will not give diuretics at present. Cholestatic jaundice Due to cirrhosis will continue to monitor Hypomagnesemia replaced Nonocclusive DVT affecting the left femoral vein and left popliteal vein. Ac after procedure. Hepatic lobe Within the hepatic dome posteriorly, there is a 2.8 x 1.9 cm hypodense lesion need further evaluation for malignancy will need further testing like MRI could be done as outpatient. Right lung base atelectasis/ pneumonia i do not believe he has a pneumonia as no fever, no elevated WBC, no resp complaints. this looks like atelectasis. Lung nodule needs follow up CT. Plan/VTE VTE Prophylaxis Ordered?: Yes VS, I&O, 24H, Fishbone Vital Signs/I&O Vital Signs Date Time Temp Pulse Resp B/P (MAP) Pulse Ox O2 Delivery O2 Flow Rate FiO2 11/09/20 06:48 114 105/56 12/24/20 04:00 97.5 18 96 Room Air 11/04/20 16:00 2.0 I&O- Last 24 Hours up to 6 AM 11/09/20 06:00 Intake Total 920 ml Balance 920 ml Laboratory Data 24H LABS Laboratory Tests 2 11/09/20 05:13: Immature Granulocyte % (Auto) 0.5, Neutrophils (%) (Auto) 69.6H, Lymphocytes (%) (Auto) 8.3L, Monocytes (%) (Auto) 17.2H, Eosinophils (%) (Auto) 3.3H, Basophils (%) (Auto) 1.1H, Neutrophils # (Auto) 4.6, Lymphocytes # (Auto) 0.6L, Monocytes # (Auto) 1.1H, Eosinophils # (Auto) 0.2, Basophils # (Auto) 0.1, Nucleated Red Blood Cells % (auto) 0.0, Anion Gap 8, Glomerular Filtration Rate 40.4L, Calcium Level 8.8, Magnesium Level 1.7L, Total Bilirubin 4.3H, Aspartate Amino Transf (AST/SGOT) 60H, Alanine Aminotransferase (ALT/SGPT) 23, Alkaline Phosphatase 124H, Total Protein 5.5L, Albumin 2.3L, Albumin/Globulin Ratio 0.7 CBC/BMP Laboratory Tests 11/09/20 05:13 Microbiology Microbiology 11/07/20 Gram Stain - Final, Resulted 11/07/20 Body Fluid Culture, Resulted Pending BRIAN GOMEZ MD Nov 09, 2020 07:47
[2020-11-09] MEDS ORDERED: KCL 20MEQ IN D5W 1000ML 1,000 ML IV SCH (13:00)
[2020-11-09] MEDS: LORazepam 2 MG/ML VIAL IV PRN (21:36)
--- NOTE | 2020-11-09 22:21 | IPN ---
NEPHROLOGY PROGRESS NOTE DATE: 11/09/2020 SUBJECTIVE: The patient was seen and examined at the bedside today morning. He still has a one to one sitter. He is very agitated in the bed, tossing and turning. And I was told by the nursing staff that he is not eating or drinking much. He still has hyponatremia. Renal function is stable with creatinine fluctuating between 1.7 to 1.8. OBJECTIVE: VITAL SIGNS: Temperature is 97.7, degrees Fahrenheit, blood pressure 118/72, pulse is 93, respiratory rate of 18, saturating 97% on room air. INTAKE AND OUTPUT: Urine output is not recorded. He has had three incontinent voids. Weight in the bed scale is 89.3 kg. PHYSICAL EXAMINATION: GENERAL APPEARANCE: The patient is awake, alert, oriented times one, laying in bed, restless. HEAD AND NECK: Pupils are equally round and reactive to light. Mucous membranes are moist. Neck is supple. There is no jugular venous distention. CARDIOVASCULAR: S1, S2, tachycardia. EXTREMITIES: Trace to 1+ edema of the bilateral lower extremities. RESPIRATORY: Chest is clear to auscultation bilaterally. Bilaterally currently no rales or rhonchi. ABDOMEN: Soft, positive bowel sounds. Mild amount of ascites is noted. MUSCULOSKELETAL: No clubbing, no cyanosis. Pulses are 2+. INVERTED BLOCK OPERATOR: The patient is encephalopathic and follows few commands. LAB REVIEW: CBC showed a WBC of 6.6, hemoglobin is 11, platelets are 89. BMP showed sodium 149, potassium 3.4, chloride 115, bicarbonate 26, BUN 42, creatinine is 1.8, magnesium 1.7. Albumin is 2.3. CURRENT INPATIENT MEDICATIONS: The patient's medications were all reviewed by myself. He is not eating or drinking much. I have started the patient on IV D5W with KCL. He was given Lactulose last night. He was also given a dose of IV magnesium sulfate. ASSESSMENT AND PLAN: 1. Acute renal failure it is hepatorenal in nature. He was given IV albumin and IV fluids. Renal function has stabilized with creatinine fluctuating around 1.7 to 1.8. 2. Hypernatremia is secondary to decreased oral intake. IV d5w with potassium has been ordered. 3. Hypokalemia potassium has been added to IV fluids. 4. Alcohol withdrawal management is as per Medical Team. He is getting Ativan p.r.n., and he is also getting daily banana bag.
[2020-11-10] VITALS (8 sets, daily range): BP systolic 99–142; BP diastolic 57–86
[2020-11-10] MEDS ORDERED: LORazepam 2 MG/ML VIAL As Ordered ONE (04:39)
[2020-11-10] MEDS: LORazepam 2 MG/ML VIAL IV PRN ×3 (04:44→15:56)
[2020-11-10] MEDS: HALOPERIDOL 5MG/ML VIAL (J1630 PER 1) IV PRN ×2 (04:48→20:19)
[2020-11-10 05:41] LABS: BASO # 0.1 10^3/uL (0.0-0.2); BASO % 1.3 % (0.0-1.0); EOS # 0.3 10^3/uL (0.0-0.5); EOS % 3.7 % (0.0-3.0); HEMATOCRIT 35.1 % (42.0-52.0); HEMOGLOBIN 11.4 g/dl (13.5-17.5); LYMPH # 0.6 10^3/uL (1.5-5.0); LYMPH % 8.5 % (24.0-44.0); MEAN CORPUSCULAR HEMOGLOBIN 34.5 pg (27.0-33.0); MEAN CORPUSCULAR HGB CONC 32.5 g/dl (32.0-36.5); MEAN CORPUSCULAR VOLUME 106.4 fl (80.0-96.0); MONO # 1.5 10^3/uL (0.0-0.8); MONO % 20.7 % (0.0-5.0); NEUTROPHILS # 4.6 10^3/uL (1.5-8.5); NEUTROPHILS % 65.4 % (36.0-66.0)
[2020-11-10 05:42] LABS: PLATELET COUNT, AUTOMATED 89 10^3/uL (150-450)
[2020-11-10] MEDS: METOPROLOL TART 12.5 MG PER 1/2 TAB PO SCH ×4 (06:00→17:07)
[2020-11-10 06:03] LABS: ALBUMIN 2.3 GM/DL (3.2-5.2); BILIRUBIN,TOTAL 4.2 MG/DL (0.2-1.0); CALCIUM LEVEL 9.4 MG/DL (8.8-10.2); CREATININE FOR GFR 1.81 MG/DL (0.70-1.30); GLOMERULAR FILTRATION RATE 40.9 (>49); MAGNESIUM LEVEL 2.2 MG/DL (1.8-2.4); POTASSIUM SERUM 3.7 MEQ/L (3.5-5.1); TOTAL PROTEIN 5.9 GM/DL (6.4-8.2)
[2020-11-10] MEDS: cefTRIAXone SOD 1 GM in D5W MINI-BAG PLUS 50 ML IV SCH (09:53)
[2020-11-10] MEDS: THIAMINE 100 MG TAB PO SCH (09:54)
[2020-11-10] MEDS: FOLIC ACID 1 MG TAB PO SCH (09:54)
[2020-11-10] MEDS ORDERED: KCL 20MEQ IN D5W 1000ML 1,000 ML IV SCH (14:00)
--- NOTE | 2020-11-10 22:30 | IPN ---
NEPHROLOGY PROGRESS NOTE DATE: 11/10/2020 SUBJECTIVE: The patient was seen and examined at the bedside today morning. The patient is still in alcohol withdrawal. He is agitated, tossing and turning in the bed. He has a one to one sitter now. Renal function is however stable. Sodium level is slightly better today with the IV d5w that he was given yesterday. OBJECTIVE: VITAL SIGNS: Temperature is 97.7 degrees Fahrenheit, blood pressure 110/64, pulse is 89, respiratory rate of 18, saturating 94% on room air. INTAKE AND OUTPUT: Urine output is not being recorded well. He has incontinent voids. Weight in the bed scale is 85.6 kg. PHYSICAL EXAMINATION: GENERAL APPEARANCE: The patient is awake but not oriented to himself. He does not follow commands, trying to take of his clothes and his diaper. HEAD AND NECK: Pupils are equally round and reactive to light. Mucous membranes are moist. Neck is supple. There is no jugular venous distention. CARDIOVASCULAR: S1, S2, regular rate. EXTREMITIES: Trace edema of the bilateral lower extremities. RESPIRATORY: Chest is clear to auscultation bilaterally currently. ABDOMEN: Slightly distended. He has a moderate amount of ascites. MUSCULOSKELETAL: No clubbing, no cyanosis. CUTTING TABLE OPERATOR: The patient is obtunded and in alcohol withdrawal and encephalopathic. LAB REVIEW: CBC showed a WBC of 7, hemoglobin 11.4, platelets of 89. BMP showed a sodium of 146, potassium 3.7, chloride 114, bicarbonate 25, BUN 39, creatinine is 1.8. it was 1.8 yesterday as well. Magnesium 2.2. Total bilirubin is 4.2. AST 75, ALT 29, alkaline phosphatase is 141, ammonia level is 27. CURRENT INPATIENT MEDICATIONS: The patient's medications were all reviewed by myself. The patient continues to be on Ativan p.r.n. for withdrawal. I have started the patient on KCL 20 mEq and d5w at 100 mL an hour for a total of 1. There are no other significant changes in the medications today. ASSESSMENT AND PLAN: 1. Hypernatremia this is secondary to poor oral intake. The patient is getting IV D5 which should help improve the sodium level. 2. Potassium level is better now more potassium has been added to the IV fluid. 3. Alcohol withdrawal - continue current dose of Ativan and Haldol p.r.n. 4. Alcoholic liver cirrhosis - The patient still has elevated total bilirubin levels, AST and ALT. Albumin level is within the acceptable range. He has received 11 doses of IV albumin so far. Blood pressures are within the acceptable range.
[2020-11-11] VITALS (9 sets, daily range): BP systolic 78–122; BP diastolic 54–72
[2020-11-11] MEDS: METOPROLOL TART 12.5 MG PER 1/2 TAB PO SCH ×4 (05:23→18:00)
[2020-11-11 06:45] LABS: BASO # 0.1 10^3/uL (0.0-0.2); BASO % 1.4 % (0.0-1.0); EOS # 0.2 10^3/uL (0.0-0.5); EOS % 3.2 % (0.0-3.0); HEMATOCRIT 33.8 % (42.0-52.0); HEMOGLOBIN 11.1 g/dl (13.5-17.5); LYMPH # 0.6 10^3/uL (1.5-5.0); LYMPH % 9.7 % (24.0-44.0); MEAN CORPUSCULAR HEMOGLOBIN 34.7 pg (27.0-33.0); MEAN CORPUSCULAR HGB CONC 32.8 g/dl (32.0-36.5); MEAN CORPUSCULAR VOLUME 105.6 fl (80.0-96.0); MONO # 1.3 10^3/uL (0.0-0.8); MONO % 20.1 % (0.0-5.0); NEUTROPHILS # 4.1 10^3/uL (1.5-8.5); NEUTROPHILS % 65.3 % (36.0-66.0); WHITE BLOOD COUNT 6.3 10^3/uL (4.0-10.0)
[2020-11-11 06:59] LABS: PLATELET COUNT, AUTOMATED 82 10^3/uL (150-450)
[2020-11-11 07:16] LABS: ALBUMIN 2.1 GM/DL (3.2-5.2); BILIRUBIN,TOTAL 4.1 MG/DL (0.2-1.0); CREATININE FOR GFR 1.9 MG/DL (0.70-1.30); GLOMERULAR FILTRATION RATE 38.7 (>49); POTASSIUM SERUM 3.9 MEQ/L (3.5-5.1); TOTAL PROTEIN 5.5 GM/DL (6.4-8.2)
[2020-11-11] MEDS ORDERED: LORazepam 2 MG TAB PO PRN (08:15)
--- NOTE | 2020-11-11 08:18 | IPNPDOC ---
Text Note Date of Service The patient was seen on 11/11/20. NOTE Subjective: Patient seen and examined this morning at bedside. Patient is still very agitated and trying to get out of bed. He is answering all my questions appropriately. Tells me he feels better overall. Tells me his withdrawals have been better now. Continues to have the shakes. Tells me his abdominal pain feels better but still has fluid and lying on one side or the other alleviates the pressure from the fluid. There was no acute overnight events. Patient has been trying to eat more but his appetite is diminished. He denies any shortness of breath or chest pain. Denies abdominal pain. He had some periods of time he seems to be confabulating and saying nonsensical things however he denies hallucinations. Objective: Constitutional: Awake and alert, patient appears to be in active alcohol withdrawal tossing and turning trying to get out of bed, agitated. ENT: Icteric sclera Respiratory: Lungs CTA bilaterally. No respiratory distress. No use of accessory muscles. Cardiovascular: Irregular heart rate no appreciable murmurs. No JVD Gastrointestinal: Slightly distended abdomen with moderate amount of ascites positive fluid wave. Nontender to palpation. Bowel sounds present. Musculoskeletal: Trace lower extremity edema. Neurologic: No focal neurological deficit. Does not have asterixis Mental Status: A&O x3, agitated and anxious Skin: Warm, dry Assessment/plan: 60 year old male with h/o alcohol abuse, CKD stage 3, h/o DVT x in the past in the left leg, chronic venous stasis, hypertension presented to ED with increasing swelling of the abdomen, leg swelling, cough and shortness of breath. Patient reports that the swelling has been building up over the past 5 weeks and now has become so bad that he has been have difficulty breathing because of the belly pushing up against his chest. He has been unable to bend down and wear his compression stocking. He describes his abdomen feeling very tense and tight with a stretching kind of pain rated it at about 4/10 and no position in bed in giving him any comfort. Its present all over the abdomen. He also noted an umbilical hernia. He was found to have massive ascites. He was also noted to be in Afib with RVR in the ED. US of the legs revealed DVT acute vs subacute on the left leg. He was also noted to have MARJORIE. Labs were significant for lactic acidosis and an alcohol level of 0.116. Creatinine of 2.36, Bilirubin 6.5. Direct Bili 5.2, ammonia 39. His last drink was last night. He admits that he has been drinking almost all his life and very heavily in the last 5 years. He was admitted for Decompensated cirrhosis of liver with massive ascites, possibly varices, cholestasis, MARJORIE, Afib with RVR and DVT of left leg acute Vs subacute # Hepatorenal syndrome: Nephrology on board helping with fluid balance. Prognosis is poor. # Decompensated liver cirrhosis: MELD 26. has had multiple large volume paracentesis and receiving IV albumin as needed. Ceftriaxone for SBP prophylaxis. # Alcohol withdrawals with metabolic encephalopathy: High risk. Continues to have alcohol withdrawal, confabulation on exam, could be component of Wernicke encephalopathy. Will do trial high-dose IV thiamine. Haldol has little to no role in treating alcohol withdrawal. I will place with patient on scheduled IV Ativan as well as PRN Ativan per [facility] protocol. # A fib: now rate controlled with metoprolol. Holding off on anticoagulation for now which will need to be discussed down the line once patient is better. It will be challenging given patients clinical condition and thrombocytopenia as well as possibly requiring more paracentesis. # Thrombocytopenia: 2/2 ETOH abuse and liver cirrhosis. Monitor. # Hyponatremia: poor PO fluid intake. Nephrology following. # Nonocclusive DVT: left femoral and popliteal veins. patient will need to be anticoagulated but is not a good candidate at this time, to be discussed with IR possible SVC filter or if not a candidate will discuss anticoagulation once he doesn't need further paracentesis. # CHFrEF: euvolemic at this time on exam no LE edema, no JVD. Hold diuresis. EF 35-40%. # liver lesion: will need OP followup with PCP for further evaluation and possible MRI with biopsy # DVT prophylaxis: SCDs A Yousef Hospitalist Brendon JAMISON, I+O VSBrendon, I+O Laboratory Tests 11/11/20 06:13 Vital Signs Date Time Temp Pulse Resp B/P (MAP) Pulse Ox O2 Delivery O2 Flow Rate FiO2 11/11/20 06:00 90 122/61 11/11/20 04:00 97.1 18 95 Room Air I&O- Last 24 Hours up to 6 AM 11/11/20 06:00 Intake Total 1190 ml Output Total 0 ml Balance 1190 ml JACQUELYN LIU MD Nov 11, 2020 08:18
--- NOTE | 2020-11-11 08:21 | IPN ---
PROGRESS NOTE DATE: 11/10/2020 SUBJECTIVE: Rachid is seen in progressive care unit. He is admitted with decompensated alcoholic cirrhosis of the liver with acute metabolic encephalopathy, acute alcohol withdrawal, acute kidney injury, hypernatremia, atrial fibrillation with rapid ventricular response. He has congestive heart failure with reduced ejection fraction, 35-40%. He has nonocclusive DVT affecting the left femoral vein and left popliteal vein and a lesion in his liver suspicious for malignancy as well as a lung nodule. Overall he is feeling well. He thinks he is making good progress. He denies any chest pain or shortness of breath. He says his edema is abating and that overall he feels better than when he came in. PHYSICAL EXAM: Vital signs: Blood pressure 142/60, pulse 92, respiratory rate 18, 98.1 degrees, 98% O2 saturation in room air. General appearance: He is alert, conversant, in no distress. Neck: There is no JVD. Lungs: Decreased breath sounds in both bases. Heart: An irregular rate and rhythm with a controlled rate, I/ systolic ejection murmur. Abdomen: Distended with ascites. He has an umbilical hernia that is nontender. There are no masses. Extremities: 1+ peripheral edema. Neuro: He is alert, conversant, in no distress. He does not have any asterixis present. INPUT/OUTPUT: Positive since admission. LABS: White count 7, hemoglobin 11.4, platelets 89. Sodium 146, potassium 3.7, BUN 39, creatinine 1.8, glucose 97. Ammonia is 27. IMPRESSION: 1. Hepatorenal syndrome. Prognosis is poor. He has received albumin. He is receiving IV fluids. He is positive with fluids. His fluid balance is being directed by nephrology. I appreciate their assistance. 2. Metabolic encephalopathy with an alcohol withdrawal and ammonia level is normal. He does not seem to be having any significant withdrawal symptoms at this time. 3. Alcohol abuse. He has CIWA protocol in place. 4. Acute kidney injury, being managed by nephrology. 5. Hypernatremia. This is slowly improving. Continue oral free water intake. 6. Atrial fibrillation, rate now under control. Anticoagulation needs to be initiated later on during this admission. It is going to be problematic with his alcoholism, thrombocytopenia and impaired liver function, cirrhosis. 7. On Eliquis for DVT affecting left femoral vein, left popliteal vein and need for ____ anticoagulation at some point. 8. Lesion in the liver. Outpatient evaluation with MRI, possible biopsy advised. I have ordered an alpha fetoprotein.
[2020-11-11] MEDS ORDERED: LORazepam 2 MG/ML VIAL As Ordered ONE ×2 (08:52→16:27)
[2020-11-11] MEDS: LORazepam 2 MG/ML VIAL IV PRN (08:54)
[2020-11-11] MEDS: FOLIC ACID 1 MG TAB PO SCH (10:29)
[2020-11-11] MEDS: cefTRIAXone SOD 1 GM in D5W MINI-BAG PLUS 50 ML IV SCH (10:29)
[2020-11-11] MEDS: MULTIVITAMINS/MINERALS THERAP 1 TAB PO SCH (10:30)
[2020-11-11] MEDS: THIAMINE 100 MG TAB PO SCH (10:30)
[2020-11-11] MEDS: LORazepam 2 MG/ML VIAL IV SCH ×3 (15:00→21:14)
[2020-11-11] MEDS ORDERED: THIAMINE 200MG/2ML VIAL (J3411 PER 100MG) IV SCH (16:00)
[2020-11-11] MEDS: KCL 20MEQ IN D5W 1000ML 1,000 ML IV SCH (17:16)
[2020-11-11] MEDS: THIAMINE INJection 500 MG in NS 100 ML IV SCH (17:22)
--- NOTE | 2020-11-11 19:00 | IPN ---
PROGRESS NOTE DATE: 11/11/2020 Mr. Briceno is seen this morning on his bedside. He is quite restless in the bed. He has been confused and disoriented. He has long history of alcohol use with hepatic encephalopathy, cirrhosis, and recurrent ascites. He has had paracentesis done. He developed acute kidney injury and electrolyte abnormalities. He has poor oral intake. PHYSICAL EXAMINATION: Temperature 97.5 degrees Fahrenheit, heart rate 92 per minute, respiratory rate 18 per minute, blood pressure 102/67 mmHg, oxygen saturation 98% on room air. Head is atraumatic. He is pale looking but to in any acute distress, though he is restless. Neck veins are not abnormally distended. Heart sounds are regular. Lungs have good bilateral air entry. Abdomen distended with ascites. Bowel sounds are present. Extremities without any cyanosis or clubbing. Today's labs show sodium 148, potassium 2.9, chloride 113, CO2 of 26, BUN 41, and creatinine 1.9. Glucose 85 and calcium 9.0. Ammonia level was 27 yesterday. PROBLEMS: 1. Hypernatremia. Patient does have mild hypernatremia, most likely related to poor oral intake and intravascular volume depletion. He is currently not on any diuretic. We will give him gentle intravenous (IV) hydration and recheck his electrolytes and renal function tomorrow. 2. Acute kidney injury superimposed on chronic kidney disease. Most likely this is prerenal and hepatorenal problem. He likely has intravascular volume depletion. I am going to put him on D5W with potassium chloride at 75 mL per hour. Electrolytes and kidney function will be checked again tomorrow.
[2020-11-12] VITALS: BP 105/66
[2020-11-12] MEDS: THIAMINE INJection 500 MG in NS 100 ML IV SCH ×3 (00:20→17:45)
[2020-11-12] MEDS: LORazepam 2 MG/ML VIAL IV SCH ×4 (03:00→21:00)
[2020-11-12 04:00] VITALS: BP 96/70
[2020-11-12] MEDS: METOPROLOL TART 12.5 MG PER 1/2 TAB PO SCH ×4 (05:40→18:00)
[2020-11-12 06:13] LABS: BASO # 0.1 10^3/uL (0.0-0.2); EOS # 0.2 10^3/uL (0.0-0.5); EOS % 2.9 % (0.0-3.0); HEMATOCRIT 35.2 % (42.0-52.0); HEMOGLOBIN 11.6 g/dl (13.5-17.5); LYMPH # 0.8 10^3/uL (1.5-5.0); LYMPH % 10.9 % (24.0-44.0); MEAN CORPUSCULAR HEMOGLOBIN 35.6 pg (27.0-33.0); MONO # 1.3 10^3/uL (0.0-0.8); MONO % 18.4 % (0.0-5.0); NEUTROPHILS # 4.5 10^3/uL (1.5-8.5); NEUTROPHILS % 65.5 % (36.0-66.0); RED BLOOD COUNT 3.26 10^6/uL (4.30-6.10); WHITE BLOOD COUNT 6.9 10^3/uL (4.0-10.0)
[2020-11-12] MEDS: KCL 20MEQ IN D5W 1000ML 1,000 ML IV SCH ×2 (06:18→18:34)
[2020-11-12 06:20] LABS: PLATELET COUNT, AUTOMATED 84 10^3/uL (150-450)
[2020-11-12 06:39] LABS: ALBUMIN 2.1 GM/DL (3.2-5.2); BILIRUBIN,TOTAL 4.4 MG/DL (0.2-1.0); CALCIUM LEVEL 8.9 MG/DL (8.8-10.2); CREATININE FOR GFR 2.27 MG/DL (0.70-1.30); GLOMERULAR FILTRATION RATE 31.5 (>49); MAGNESIUM LEVEL 2.1 MG/DL (1.8-2.4); POTASSIUM SERUM 4.2 MEQ/L (3.5-5.1); TOTAL PROTEIN 5.7 GM/DL (6.4-8.2)
[2020-11-12 08:00] VITALS: BP 110/84
--- NOTE | 2020-11-12 08:08 | IPNPDOC ---
Text Note Date of Service The patient was seen on 11/12/20. NOTE Subjective: She was seen and examined this morning at bedside. Patient continues to be actively withdrawing from alcohol shaking and agitated at times. He is answering my questions appropriately although he continues to have confabulations. Tells me he feels about the same as yesterday and he denies being any pain. He denies any chest pain or shortness of breath and denies any abdominal pain. No acute overnight events. Objective: Constitutional: Awake and alert, patient appears to be in active alcohol withdrawal tossing and turning trying to get out of bed, agitated again today. ENT: Icteric sclera Respiratory: Lungs CTA bilaterally. No respiratory distress. No use of accessory muscles. Cardiovascular: Irregular heart rate no appreciable murmurs. No JVD Gastrointestinal: Slightly distended abdomen with moderate amount of ascites positive fluid wave. Nontender to palpation. Bowel sounds present. Musculoskeletal: Trace lower extremity edema. Neurologic: No focal neurological deficit. Does not have asterixis Mental Status: A&O x3, agitated and anxious Skin: Warm, dry Assessment/plan: 60 year old male with h/o alcohol abuse, CKD stage 3, h/o DVT x in the past in the left leg, chronic venous stasis, hypertension presented to ED with increasing swelling of the abdomen, leg swelling, cough and shortness of breath. Patient reports that the swelling has been building up over the past 5 weeks and now has become so bad that he has been have difficulty breathing because of the belly pushing up against his chest. He has been unable to bend down and wear his compression stocking. He describes his abdomen feeling very tense and tight with a stretching kind of pain rated it at about 4/10 and no position in bed in giving him any comfort. Its present all over the abdomen. He also noted an umbilical hernia. He was found to have massive ascites. He was also noted to be in Afib with RVR in the ED. US of the legs revealed DVT acute vs subacute on the left leg. He was also noted to have MARJORIE. Labs were significant for lactic acidosis and an alcohol level of 0.116. Creatinine of 2.36, Bilirubin 6.5. Direct Bili 5.2, ammonia 39. His last drink was last night. He admits that he has been drinking almost all his life and very heavily in the last 5 years. He was admitted for Decompensated cirrhosis of liver with massive ascites, possibly varices, cholestasis, MARJORIE, Afib with RVR and DVT of left leg acute Vs subacute # Hepatorenal syndrome: Nephrology on board helping with fluid balance. Prognosis is poor. # Decompensated liver cirrhosis: MELD 26. has had multiple large volume paracentesis and receiving IV albumin as needed. Ceftriaxone for SBP pr ophylaxis. # Alcohol withdrawals with metabolic encephalopathy: High risk. Continues to have alcohol withdrawal, confabulation and restlessness on exam, could be component of Wernicke encephalopathy. Will do trial high-dose IV thiamine. Haldol has little to no role in treating alcohol withdrawal and was discontinued. I will place with patient on scheduled IV Ativan as well as PRN Ativan per [facility] protocol. Liver function reviewed and he should be able to tolerate Librium for a few days. I started him on Librium for 3 days as a long- acting benzodiazepine to see if it helps more with his withdrawals. # A fib: now rate controlled with metoprolol. Holding off on anticoagulation for now which will need to be discussed down the line once patient is better. It will be challenging given patients clinical condition and thrombocytopenia as well as possibly requiring more paracentesis. # Thrombocytopenia: 2/2 ETOH abuse and liver cirrhosis. Monitor. # Hyponatremia: poor PO fluid intake. Nephrology following. # Nonocclusive DVT: left femoral and popliteal veins. patient will need to be anticoagulated but is not a good candidate at this time, to be discussed with IR possible SVC filter or if not a candidate will discuss anticoagulation once he doesn't need further paracentesis. # CHFrEF: euvolemic at this time on exam no LE edema, no JVD. Hold diuresis. EF 35-40%. # liver lesion: will need OP followup with PCP for further evaluation and possible MRI with biopsy # DVT prophylaxis: SCDs A Yousef Hospitalist VS,Brendon, I+O VS, Brendon, I+O Laboratory Tests 11/12/20 05:41 Vital Signs Date Time Temp Pulse Resp B/P (MAP) Pulse Ox O2 Delivery O2 Flow Rate FiO2 11/12/20 05:40 84 96/70 11/12/20 04:00 97.8 18 97 11/12/20 00:00 Room Air I&O- Last 24 Hours up to 6 AM 12/27/20 06:00 Intake Total 445 ml Output Total 0 ml Balance 445 ml JACQUELYN LIU MD Nov 12, 2020 08:08
[2020-11-12] MEDS: FOLIC ACID 1 MG TAB PO SCH (09:51)
[2020-11-12] MEDS: MULTIVITAMINS/MINERALS THERAP 1 TAB PO SCH (09:52)
[2020-11-12] MEDS: cefTRIAXone SOD 1 GM in D5W MINI-BAG PLUS 50 ML IV SCH (09:52)
[2020-11-12 12:00] VITALS: BP 100/58
--- NOTE | 2020-11-12 13:50 | IPN ---
PROGRESS NOTE DATE: 11/12/2020 SUBJECTIVE: Mr. Briceno is seen this morning on his bedside. He remains very confused and not able to communicate properly today. Nursing staff reports that he has been quite restless and confused and not interacting. PHYSICAL EXAMINATION: Temperature 97.6 degrees Fahrenheit, heart rate 76 per minute and respiratory rate 18 per minute. Blood pressure 110/84 mmHg and oxygen saturation 96% on room air. His head is atraumatic. He is somewhat pale looking, but not in any acute distress. Neck veins are not abnormally distended. Heart sounds are regular and lungs have good bilateral air entry. Abdomen is soft and distended with ascites. Bowel sounds are present. Extremities without any cyanosis or clubbing. Neurologically, he is confused and obtunded today. He is not able to interact or communicate. LABORATORY DATA: Today's lab show WBC count 6.9, hemoglobin 11.6 and hematocrit 35.2. Sodium 147, potassium 4.2, Co2 25, BUN 43 and creatinine 2.27. Total protein is 5.7 and albumin 2.1. PROBLEMS: 1. Acute renal failure superimposed on chronic kidney disease. This is probably hepatorenal syndrome. His kidney function is slightly worse. Oral intake is poor and will continue with IV fluid. I would recommend intravenous albumin, which might help. In the terminal worker, his prognosis remains poor. 2. Hypernatremia, slightly improvement noticed and will continue with D5W for now. Electrolytes will be checked again tomorrow morning. 3. Cirrhosis of liver with recurrent ascites. The patient has significant ascites once again. He is likely to require another paracentesis soon. I would recommend discussion with his family about plan of care. I feel that his prognosis is poor at this point. 4. Anemia. At present his anemia is stable and does not need any urgent intervention.
[2020-11-12] MEDS: chlordiazePOXIDE 25 MG CAP PO SCH ×3 (14:50→22:21)
[2020-11-12 16:00] VITALS: BP 134/84
[2020-11-12 20:00] VITALS: BP 99/57
[2020-11-13] VITALS (11 sets, daily range): BP systolic 90–120; BP diastolic 48–80
[2020-11-13] MEDS: THIAMINE INJection 500 MG in NS 100 ML IV SCH ×3 (03:20→16:11)
[2020-11-13] MEDS: LORazepam 2 MG/ML VIAL IV SCH ×4 (03:20→21:39)
[2020-11-13] MEDS: METOPROLOL TART 12.5 MG PER 1/2 TAB PO SCH ×4 (06:00→17:05)
[2020-11-13 06:03] LABS: BASO # 0.1 10^3/uL (0.0-0.2); BASO % 1.5 % (0.0-1.0); EOS # 0.2 10^3/uL (0.0-0.5); EOS % 2.1 % (0.0-3.0); HEMATOCRIT 35.8 % (42.0-52.0); HEMOGLOBIN 11.4 g/dl (13.5-17.5); LYMPH % 10.4 % (24.0-44.0); MEAN CORPUSCULAR HGB CONC 31.8 g/dl (32.0-36.5); MEAN CORPUSCULAR VOLUME 106.9 fl (80.0-96.0); MONO # 1.8 10^3/uL (0.0-0.8); NEUTROPHILS # 6.2 10^3/uL (1.5-8.5); NEUTROPHILS % 66.6 % (36.0-66.0); RED BLOOD COUNT 3.35 10^6/uL (4.30-6.10); WHITE BLOOD COUNT 9.2 10^3/uL (4.0-10.0)
[2020-11-13 06:04] LABS: PLATELET COUNT, AUTOMATED 91 10^3/uL (150-450)
[2020-11-13 06:36] LABS: ALBUMIN 2.1 GM/DL (3.2-5.2); BILIRUBIN,TOTAL 3.9 MG/DL (0.2-1.0); CALCIUM LEVEL 8.7 MG/DL (8.8-10.2); CREATININE FOR GFR 2.69 MG/DL (0.70-1.30); GLOMERULAR FILTRATION RATE 25.9 (>49); MAGNESIUM LEVEL 2.1 MG/DL (1.8-2.4); POTASSIUM SERUM 4.6 MEQ/L (3.5-5.1); TOTAL PROTEIN 5.9 GM/DL (6.4-8.2)
--- NOTE | 2020-11-13 08:06 | IPNPDOC ---
Text Note Date of Service The patient was seen on 11/13/20. NOTE Subjective: Patient was seen and examined this morning at bedside. Today is the first day see patient where he does not appear to be actively withdrawing. He appeared comfortable and calm in bed. He answered many of my questions appropriately. He tells me he is not any pain and thinks he feels better. He denies any abdominal pain denies any shortness of breath or chest pain. Objective: Constitutional: Awake but sleepy, calm today and does not appear to be actively withdrawing ENT: Icteric sclera Respiratory: Lungs CTA bilaterally. No respiratory distress. No use of a ccessory muscles. Cardiovascular: Irregular heart rate no appreciable murmurs. No JVD Gastrointestinal: Slightly distended abdomen with moderate amount of ascites positive fluid wave. Nontender to palpation. Bowel sounds present. Musculoskeletal: Trace lower extremity edema. Neurologic: No focal neurological deficit. Does not have asterixis Mental Status: A&O x3, not agitated today does not appear anxious Skin: Warm, dry Assessment/plan: 60 year old male with h/o alcohol abuse, CKD stage 3, h/o DVT x in the past in the left leg, chronic venous stasis, hypertension presented to ED with inc reasing swelling of the abdomen, leg swelling, cough and shortness of breath. Patient reports that the swelling has been building up over the past 5 weeks and now has become so bad that he has been have difficulty breathing because of the belly pushing up against his chest. He has been unable to bend down and wear his compression stocking. He describes his abdomen feeling very tense and tight with a stretching kind of pain rated it at about 4/10 and no position in bed in giving him any comfort. Its present all over the abdomen. He also noted an umbilical hernia. He was found to have massive ascites. He was also noted to be in Afib with RVR in the ED. US of the legs revealed DVT acute vs subacute on the left leg. He was also noted to have MARJORIE. Labs were significant for lactic acidosis and an alcohol level of 0.116. Creatinine of 2.36, Bilirubin 6.5. Direct Bili 5.2, ammonia 39. His last drink was last night. He admits that he has been drinking almost all his life and very heavily in the last 5 years. He was admitted for Decompensated cirrhosis of liver with massive ascites, possibly varices, cholestasis, MARJORIE, Afib with RVR and DVT of left leg acute Vs subacute # Hepatorenal syndrome: Nephrology on board helping with fluid balance. Prognosis is poor. # Decompensated liver cirrhosis: MELD 26. has had multiple large volume paracentesis and receiving IV albumin as needed. Ceftriaxone for SBP prophylaxis. If ascites continues to worsen may need another paracentesis tomorrow, I have placed an order, will also need albumin during that time to support his blood pressure. # Alcohol withdrawals with metabolic encephalopathy: High risk. alcohol withdrawal better today, confabulation but not restless on exam as he was previously, could be component of Wernicke encephalopathy. Will do trial high- dose IV thiamine. Haldol has little to no role in treating alcohol withdrawal and was discontinued. I will place with patient on scheduled IV Ativan as well as PRN Ativan per [facility] protocol. Liver function reviewed and he should be able to tolerate Librium for a few days. I started him on Librium for 3 days as a long-acting benzodiazepine to see if it helps more with his withdrawals and it seems to be working # A fib: now rate controlled with metoprolol. Holding off on anticoagulation for now which will need to be discussed down the line once patient is better. It will be challenging given patients clinical condition and thrombocytopenia as well as possibly requiring more paracentesis. # Thrombocytopenia: 2/2 ETOH abuse and liver cirrhosis. Monitor. # Hyponatremia: poor PO fluid intake. Nephrology following. # Nonocclusive DVT: left femoral and popliteal veins. patient will need to be anticoagulated but is not a good candidate at this time, to be discussed with IR possible SVC filter or if not a candidate will discuss anticoagulation once he doesn't need further paracentesis. # CHFrEF: euvolemic at this time on exam no LE edema, no JVD. Hold diuresis. EF 35-40%. # liver lesion: will need OP followup with PCP for further evaluation and possible MRI with biopsy # DVT prophylaxis: SCDs A Yousef Hospitalist VS,Brendon, I+O VS, Brendon, I+O Laboratory Tests 11/13/20 05:32 Vital Signs Date Time Temp Pulse Resp B/P (MAP) Pulse Ox O2 Delivery O2 Flow Rate FiO2 11/13/20 06:00 77 100/72 11/13/20 04:01 98.2 17 97 Room Air I&O- Last 24 Hours up to 6 AM 11/13/20 06:00 Intake Total 1120 ml Output Total 0 ml Balance 1120 ml JACQUELYN LIU MD Nov 13, 2020 08:06
[2020-11-13] MEDS: FOLIC ACID 1 MG TAB PO SCH (08:40)
[2020-11-13] MEDS: MULTIVITAMINS/MINERALS THERAP 1 TAB PO SCH (08:40)
[2020-11-13] MEDS: cefTRIAXone SOD 1 GM in D5W MINI-BAG PLUS 50 ML IV SCH (08:40)
[2020-11-13] MEDS: chlordiazePOXIDE 25 MG CAP PO SCH ×3 (08:40→21:39)
[2020-11-13] MEDS: KCL 20MEQ IN D5W 1000ML 1,000 ML IV SCH (10:24)
--- NOTE | 2020-11-13 19:36 | IPN ---
NEPHROLOGY PROGRESS NOTE DATE: 11/13/2020 SUBJECTIVE: The patient was seen this afternoon at his bedside. He remains quite confused and disoriented. He is not able to provide any reliable information. I discussed the case with his primary care physician this morning and expressed my concerns about his hepatic encephalopathy and multiorgan problems as a result of it. PHYSICAL EXAMINATION: VITAL SIGNS: Temperature 96.4 degrees Fahrenheit, heart rate 70 per minute and respiratory rate 20 per minute, blood pressure 112/58 mm of mercury and oxygen saturation 100% on room air. HEENT: His head is atraumatic. NECK: Supple and JVD difficult to be assessed. HEART: Regular. LUNGS: Clear to auscultation. ABDOMEN: Distended with large amount of ascites. Umbilical hernia is also noted. EXTREMITIES: Without any cyanosis or clubbing. NEUROLOGICAL: He is quite confused and disoriented. LABORATORY STUDIES: Today's labs show a WBC count of 9.2, hemoglobin 11.4 and hematocrit 35.8. Sodium 144, potassium 4.6, CO2 25, BUN 46 and creatinine 2.69. Total bilirubin is 3.9. PROBLEMS: 1. Acute renal failure superimposed on chronic kidney disease most likely hepatorenal problem and kidney function is gradually worsening. I would recommend IV albumin if he has any chance of reversible hepatic problem. He is already receiving IV fluids as his oral intake is minimal. 2. Hypernatremia - sodium level has corrected and he remains on IV d5w with some potassium supplement. 3. Cirrhosis with recurrent ascites - The patient has required multiple paracenteses. He seems to have worsening ascites again and will probably require another paracentesis. I feel that his liver disease is significantly advanced and his prognosis is poor. 4. Protein calorie malnutrition this is related to poor oral intake and hepatic dysfunction. The patient can probably benefit from some IV albumin at least transiently.
[2020-11-13] MEDS ORDERED: LORazepam 2 MG/ML VIAL As Ordered ONE (21:33)
[2020-11-14] VITALS (16 sets, daily range): BP systolic 76–133; BP diastolic 44–86; O2SAT 95–99
[2020-11-14] MEDS: THIAMINE INJection 500 MG in NS 100 ML IV SCH ×3 (02:09→17:22)
[2020-11-14] MEDS: KCL 20MEQ IN D5W 1000ML 1,000 ML IV SCH (02:26)
[2020-11-14] MEDS ORDERED: LORazepam 2 MG/ML VIAL As Ordered ONE (03:58)
[2020-11-14] MEDS: LORazepam 2 MG/ML VIAL IV SCH (04:00)
[2020-11-14] MEDS: METOPROLOL TART 12.5 MG PER 1/2 TAB PO SCH ×3 (06:00→12:00)
[2020-11-14 06:03] LABS: BASO # 0.1 10^3/uL (0.0-0.2); BASO % 1.6 % (0.0-1.0); EOS # 0.2 10^3/uL (0.0-0.5); HEMATOCRIT 32.9 % (42.0-52.0); HEMOGLOBIN 10.7 g/dl (13.5-17.5); LYMPH # 0.8 10^3/uL (1.5-5.0); LYMPH % 10.3 % (24.0-44.0); MEAN CORPUSCULAR HEMOGLOBIN 34.1 pg (27.0-33.0); MEAN CORPUSCULAR HGB CONC 32.5 g/dl (32.0-36.5); MEAN CORPUSCULAR VOLUME 104.8 fl (80.0-96.0); MONO # 1.4 10^3/uL (0.0-0.8); MONO % 18.4 % (0.0-5.0); NEUTROPHILS % 66.2 % (36.0-66.0); RED BLOOD COUNT 3.14 10^6/uL (4.30-6.10); WHITE BLOOD COUNT 7.6 10^3/uL (4.0-10.0)
[2020-11-14 06:04] LABS: PLATELET COUNT, AUTOMATED 83 10^3/uL (150-450)
[2020-11-14 06:32] LABS: ALBUMIN 1.8 GM/DL (3.2-5.2); BILIRUBIN,TOTAL 3.8 MG/DL (0.2-1.0); CALCIUM LEVEL 8.7 MG/DL (8.8-10.2); CREATININE FOR GFR 2.91 MG/DL (0.70-1.30); GLOMERULAR FILTRATION RATE 23.7 (>49); MAGNESIUM LEVEL 2.1 MG/DL (1.8-2.4); POTASSIUM SERUM 4.9 MEQ/L (3.5-5.1); TOTAL PROTEIN 5.4 GM/DL (6.4-8.2)
[2020-11-14] MEDS: MULTIVITAMINS/MINERALS THERAP 1 TAB PO SCH (09:00)
[2020-11-14] MEDS: FOLIC ACID 1 MG TAB PO SCH (09:00)
[2020-11-14] MEDS: cefTRIAXone SOD 1 GM in D5W MINI-BAG PLUS 50 ML IV SCH (10:28)
[2020-11-14] MEDS: NS 0.45% 1,000 ML IV SCH (12:11)
[2020-11-14] MEDS ORDERED: SODIUM CHLORIDE 0.9% 1000ML IV ONE (12:30)
--- NOTE | 2020-11-14 12:52 | IPN ---
NEPHROLOGY PROGRESS NOTE DATE: 11/14/2020 SUBJECTIVE: Mr. Briceno is seen this morning on his bedside. He remains confused and disoriented. He has a sitter present in the room. Patient is unable to provide any information and he is quite restless in the bed. PHYSICAL EXAMINATION: Temperature 96.4 degrees Fahrenheit, heart rate 64 per minute, respiratory rate 18 per minute. Blood pressure 105/54 mmHg and oxygen saturation 96% on room air. Head: Atraumatic. Oral mucosa is somewhat dry. Neck: Neck veins are not abnormally distended. Heart: Sounds are regular. Lungs: With slightly diminished breath sounds at bases. Abdomen: Distended with ascites and an umbilical hernia is present. Bowel sounds are normal. Extremities: Without any cyanosis or clubbing. Neurologically: He is quite confused and disoriented. LABORATORY DATA: Today's labs show WBC count 7.l6, hemoglobin 10.7, hematocrit 32.9, platelets 83,000. Sodium 139, potassium 4.9, CO2 24, BUN 49, creatinine 2.91. Total protein 5.4 and albumin 1.8. PROBLEMS/PLAN: 1. Acute on chronic kidney disease, slight worsening of kidney function is noticed: This is most likely hepatorenal and poor oral intake causing it. We will continue with gentle I.V. hydration. 2. Hypernatremia: His sodium level has corrected with D5W, intravenous fluid and I am going to change it to half-normal saline as his sodium is likely to get worse. 3. Anemia: At this time his anemia is stable and does not need any urgent intervention. 4. Hepatic encephalopathy: Patient remains quite encephalopathic. I have discussed with the Hospitalist Service about consideration for a discussion with his family about plan for care. His prognosis remains poor.
[2020-11-14] MEDS: VITAMIN B COMPLEX/VIT C CAP PO SCH (18:15)
--- NOTE | 2020-11-14 18:30 | IPNPDOC ---
Subjective Date Seen The patient was seen on 11/14/20. Subjective Chief Complaint/HPI Patient very somnolent this am. His Librium and scheduled ativan were stopped. He was more awake this afternoon. His Bp remains low, Poor urine output. Very poor oral intake. Last night was agitated and tried to get out of bed and had a fall. He fell on his knees when he tried to stand up. Did not hit his head. Spoke with daughter Lior Briceno at [phone] his health care proxy. As per lior his living will states no resuscitation , no dialysis, no ventilation. She will be delivering the appropriate papers to the hospital tomorrow. i will change his status to DNR/DNI. Also discussed that if he does not improve significantly over the next 2 to 3 days then chance of his improvement is slim and he should then benefit form Hospice. Lior is agreeable to this and would like her dad to be made comfortable / hospice if he does not show any improvement in next few days. Objective Physical Examination General Exam: Positive: No Acute Distress, Other (confused and fidgety sometimes very somnolent) Eye Exam: Positive: Conjunctiva & lids normal, Sclera icteric ENT Exam: Positive: Atraumatic, Pharynx Normal, Other ENT (dry mucous membranes. ) Neck Exam: Positive: Supple, JVD; Negative: thyromegaly Chest Exam: Positive: Clear to auscultation, Normal air movement Heart Exam: Positive: Rate Normal, Irregular Rhythm, Normal S1; Negative: Bradycardic, Regular Rhythm, Normal S2, Gallops Abdomen Exam: Positive: Normal bowel sounds, Soft, Hernia (umbilical hernia'), Other (large ascites); Negative: Hepatospenomegaly Extremity Exam: Positive: Edema; Negative: Clubbing, Cyanosis Psych Exam: Positive: Other (confused) Assessment /Plan Assessment 60 year old male with h/o alcohol abuse, CKD stage 3, h/o DVT x in the past in the left leg, chronic venous stasis, hypertension presented to ED with increasing swelling of the abdomen, leg swelling, cough and shortness of breath. Patient reports that the swelling has been building up over the past 5 weeks and now has become so bad that he has been have difficulty breathing because of the belly pushing up against his chest. He has been unable to bend down and wear his compression stocking. He describes his abdomen feeling very tense and tight with a stretching kind of pain rated it at about 4/10 and no position in bed in giving him any comfort. Its present all over the abdomen. He also noted an umbilical hernia. He was found to have massive ascites. He was also noted to be in Afib with RVR in the ED. US of the legs revealed DVT acute vs subacute on the left leg. He was also noted to have MARJORIE. Labs were significant for lactic acidosis and an alcohol level of 0.116. Creatinine of 2.36, Bilirubin 6.5. Direct Bili 5.2, ammonia 39. His last drink was last night. He admits that he has been drinking almost all his life and very heavily in the last 5 years. 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 Received Albumin and empiric ceftriaxone for SBP. Ascitic fluid culture negative Acute metabolic encephalopathy due to acute ongoing alcohol withdrawal +/- Wernicke encephalopathy may also develop hepatic encephalopathy will continue high dose iv thiamine and vit b complex, folate CIWA protocol. Continuos Alcohol abuse with acute withdrawal CIWA protocol in place Lactacidosis Now resolved probably a combination of liver failure and alcohol. Due to associated renal failure took longer to clear High anion gap metabolic acidosis due to lacticacidosis, alcohol ketosis now resolved. MARJORIE Probably hepatorenal syndrome Albumin given , had paracentesis x 2 nephro following. Hypernatremia improved due to poor oral free water intake. continue 1/2 NS Afib with RVR now rate mostly controlled except when he is getting agitated. Will need to start AC when patient alert and oriented will discuss anticoagulation Systolic CHF acute on chronic with moderate pulmonary hypertension and right heart failure EF of 35% to 40% Eccentric LVH, Mild MR. Very poor oral intake will not give diuretics at present. Cholestatic jaundice Due to cirrhosis will continue to monitor Hypomagnesemia replaced Nonocclusive DVT affecting the left femoral vein and left popliteal vein. Ac when more awake. Thrombocytopenia due to cirrhosis and alcohol abuse. Hepatic lobe Within the hepatic dome posteriorly, there is a 2.8 x 1.9 cm hypodense lesion need further evaluation for malignancy will need further testing like MRI could be done as outpatient. Right lung base atelectasis/ pneumonia i do not believe he has a pneumonia as no fever, no elevated WBC, no resp complaints. this looks like atelectasis. Lung nodule needs follow up CT. DVT prophylaxis: mechanical. Plan/VTE VTE Prophylaxis Ordered?: Yes VS, I&O, 24H, Fishbone Vital Signs/I&O Vital Signs Date Time Temp Pulse Resp B/P (MAP) Pulse Ox O2 Delivery O2 Flow Rate FiO2 11/14/20 18:00 97 Room Air 11/14/20 16:00 96.4 72 17 95/58 (70) I&O- Last 24 Hours up to 6 AM 11/14/20 07:00 Intake Total 1765 ml Output Total 0 ml Balance 1765 ml Laboratory Data 24H LABS Laboratory Tests 2 11/14/20 05:39: Immature Granulocyte % (Auto) 0.5, Neutrophils (%) (Auto) 66.2H, Lymphocytes (%) (Auto) 10.3L, Monocytes (%) (Auto) 18.4H, Eosinophils (%) (Auto) 3.0, Basophils (%) (Auto) 1.6H, Neutrophils # (Auto) 5.0, Lymphocytes # (Auto) 0.8L, Monocytes # (Auto) 1.4H, Eosinophils # (Auto) 0.2, Basophils # (Auto) 0.1, Nucleated Red Blood Cells % (auto) 0.0, Immature Platelet Fraction 11.4H, Anion Gap 5L, Glomerular Filtration Rate 23.7L, Calcium Level 8.7L, Magnesium Level 2.1, Total Bilirubin 3.8H, Aspartate Amino Transf (AST/SGOT) 64H, Alanine Aminotransferase (ALT/SGPT) 23, Alkaline Phosphatase 136H, Total Protein 5.4L, Albumin 1.8L, Albumin/Globulin Ratio 0.5 CBC/BMP Laboratory Tests 11/14/20 05:39 Microbiology Microbiology 11/07/20 Gram Stain - Final, Complete 11/07/20 Body Fluid Culture - Final, Complete BRIAN GOMEZ MD Nov 14, 2020 18:29
[2020-11-15] VITALS (16 sets, daily range): BP systolic 74–98; BP diastolic 50–64
[2020-11-15] MEDS: NS 0.45% 1,000 ML IV SCH ×3 (01:45→20:21)
[2020-11-15 05:23] LABS: BASO # 0.2 10^3/uL (0.0-0.2); BASO % 1.7 % (0.0-1.0); EOS # 0.3 10^3/uL (0.0-0.5); EOS % 2.8 % (0.0-3.0); HEMATOCRIT 38.6 % (42.0-52.0); HEMOGLOBIN 12.3 g/dl (13.5-17.5); LYMPH # 0.7 10^3/uL (1.5-5.0); LYMPH % 7.8 % (24.0-44.0); MEAN CORPUSCULAR HEMOGLOBIN 33.4 pg (27.0-33.0); MEAN CORPUSCULAR HGB CONC 31.9 g/dl (32.0-36.5); MEAN CORPUSCULAR VOLUME 104.9 fl (80.0-96.0); MONO # 1.3 10^3/uL (0.0-0.8); MONO % 14.5 % (0.0-5.0); NEUTROPHILS # 6.6 10^3/uL (1.5-8.5); NEUTROPHILS % 72.6 % (36.0-66.0); PLATELET COUNT, AUTOMATED 96 10^3/uL (150-450); RED BLOOD COUNT 3.68 10^6/uL (4.30-6.10); WHITE BLOOD COUNT 9.1 10^3/uL (4.0-10.0)
[2020-11-15 05:37] LABS: INR 1.39; PROTHROMBIN TIME 17.4 SECONDS (12.5-14.3)
[2020-11-15 05:38] LABS: PARTIAL THROMBOPLASTIN TIME 41.7 SECONDS (24.2-38.5)
[2020-11-15 05:49] LABS: BILIRUBIN,TOTAL 3.8 MG/DL (0.2-1.0); CALCIUM LEVEL 8.8 MG/DL (8.8-10.2); CREATININE FOR GFR 3.4 MG/DL (0.70-1.30); GLOMERULAR FILTRATION RATE 19.8 (>49); MAGNESIUM LEVEL 2.2 MG/DL (1.8-2.4); POTASSIUM SERUM 5.4 MEQ/L (3.5-5.1); TOTAL PROTEIN 5.8 GM/DL (6.4-8.2)
[2020-11-15] MEDS: THIAMINE 200MG/2ML VIAL (J3411 PER 100MG) IV SCH (10:20)
[2020-11-15] MEDS: FOLIC ACID 1 MG TAB PO SCH (10:21)
[2020-11-15] MEDS: MULTIVITAMINS/MINERALS THERAP 1 TAB PO SCH (10:21)
[2020-11-15] MEDS: VITAMIN B COMPLEX/VIT C CAP PO SCH (10:21)
[2020-11-15] MEDS ORDERED: SODIUM CHLORIDE 0.9% 1000ML IV ONE (13:45)
--- NOTE | 2020-11-15 14:02 | IPN ---
PROGRESS NOTE DATE: 11/15/2020 Mr. Briceno is seen this morning on his bedside. He remains quite confused and disoriented, though slightly better compared with yesterday and was able to answer simple questions. He could not tell me the day or the place correctly. He has a sitter on his bedside. PHYSICAL EXAMINATION: Temperature 96.7 degrees Fahrenheit, heart rate 70 per minute, respiratory rate 18 per minute, blood pressure 98/62 mmHg, and oxygen saturation 98% on room air. Head is atraumatic. Neck supple, and jugular venous distention (JVD) difficult to be assessed. Heart sounds are regular and lungs sounds clear to auscultation. Abdomen is soft and distended with ascites. Extremities without any cyanosis or clubbing. Lower extremity edema is increasing. Neurologically, he remains confused, disoriented, and restless. Today's labs show WBC count 9.1, hemoglobin 12.3, and hematocrit 38.6. Sodium 138, potassium 5.4, BUN 51, and creatinine 3.4. PROBLEMS: 1. Acute kidney injury superimposed on chronic kidney disease. Kidney function gradually worsening. At this point, we will continue to watch him. Patient does not seem to be a suitable candidate for dialysis in view of his advanced hepatic problems. 2. Hyperkalemia. Mild hyperkalemia is noted, and this is related to worsening kidney function. He can probably benefit from one dose of Kayexalate. 3. Nutrition. Patient remains malnourished and not eating much. He is currently on intravenous (IV) fluid. 4. Hepatic cirrhosis with encephalopathy. Patient remains encephalopathic with increasing ascites. A paracentesis is performed just today. Overall, his prognosis remains poor with multiorgan problems and worsening mental status.
--- NOTE | 2020-11-15 17:24 | IPNPDOC ---
Subjective Date Seen The patient was seen on 11/15/20. Subjective Chief Complaint/HPI More awake this am. Ate some breakfast. Had paracentesis again with removal of 8.1 Liters. Decreased urine output. Bp again low after paracentesis. Will give albumin. Objective Physical Examination General Exam: Positive: Cooperative, No Acute Distress, Other (more awake.) Eye Exam: Positive: Conjunctiva & lids normal, Sclera icteric ENT Exam: Positive: Atraumatic, Pharynx Normal, Other ENT Neck Exam: Positive: Supple, JVD Chest Exam: Positive: Clear to auscultation, Normal air movement Heart Exam: Positive: Rate Normal, Irregular Rhythm, Normal S1 Abdomen Exam: Positive: Normal bowel sounds, Soft, Hernia, Other Extremity Exam: Positive: Edema Psych Exam: Positive: Other Assessment /Plan Assessment 60 year old male with h/o alcohol abuse, CKD stage 3, h/o DVT x in the past in the left leg, chronic venous stasis, hypertension presented to ED with increasing swelling of the abdomen, leg swelling, cough and shortness of breath. Patient reports that the swelling has been building up over the past 5 weeks and now has become so bad that he has been have difficulty breathing because of the belly pushing up against his chest. He has been unable to bend down and wear his compression stocking. He describes his abdomen feeling very tense and tight with a stretching kind of pain rated it at about 4/10 and no position in bed in giving him any comfort. Its present all over the abdomen. He also noted an umbilical hernia. He was found to have massive ascites. He was also noted to be in Afib with RVR in the ED. US of the legs revealed DVT acute vs subacute on the left leg. He was also noted to have MARJORIE. Labs were significant for lactic acidosis and an alcohol level of 0.116. Creatinine of 2.36, Bilirubin 6.5. Direct Bili 5.2, ammonia 39. His last drink was last night. He admits that he has been drinking almost all his life and very heavily in the last 5 years. 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 Received Albumin and empiric ceftriaxone for SBP. Ascitic fluid culture negative Acute metabolic encephalopathy due to acute ongoing alcohol withdrawal +/- Wernicke encephalopathy may also develop hepatic encephalopathy will continue high dose iv thiamine and vit b complex, folate CISC protocol. Continuos Alcohol abuse with acute withdrawal CIWA protocol in place Lactacidosis Now resolved probably a combination of liver failure and alcohol. Due to associated renal failure took longer to clear High anion gap metabolic acidosis due to lacticacidosis, alcohol ketosis now resolved. MARJORIE Probably hepatorenal syndrome Albumin given , had paracentesis x 3 nephro following. will give albumin. Hypernatremia improved due to poor oral free water intake. continue 1/2 NS Afib with RVR now rate mostly controlled except when he is getting agitated. Will need to start AC when patient alert and oriented will discuss anticoagulation Systolic CHF acute on chronic with moderate pulmonary hypertension and right heart failure EF of 35% to 40% Eccentric LVH, Mild MR. Very poor oral intake will not give diuretics at present. Cholestatic jaundice Due to cirrhosis will continue to monitor Hypomagnesemia replaced Nonocclusive DVT affecting the left femoral vein and left popliteal vein. Ac when more awake. Thrombocytopenia due to cirrhosis and alcohol abuse. Hepatic lobe Within the hepatic dome posteriorly, there is a 2.8 x 1.9 cm hypodense lesion need further evaluation for malignancy will need further testing like MRI could be done as outpatient. Right lung base atelectasis/ pneumonia i do not believe he has a pneumonia as no fever, no elevated WBC, no resp co mplaints. this looks like atelectasis. Lung nodule needs follow up CT. DVT prophylaxis: mechanical. Plan/VTE VTE Prophylaxis Ordered?: Yes VS, I&O, 24H, Fishbone Vital Signs/I&O Vital Signs Date Time Temp Pulse Resp B/P (MAP) Pulse Ox O2 Delivery O2 Flow Rate FiO2 11/15/20 13:10 82/54 (63) 11/15/20 12:30 96.6 74 18 98 Room Air I&O- Last 24 Hours up to 6 AM 11/15/20 06:00 Intake Total 2345 ml Output Total 300 ml Balance 2045 ml Laboratory Data 24H LABS Laboratory Tests 2 11/15/20 05:03: Immature Granulocyte % (Auto) 0.6, Neutrophils (%) (Auto) 72.6H, Lymphocytes (%) (Auto) 7.8L, Monocytes (%) (Auto) 14.5H, Eosinophils (%) (Auto) 2.8, Basophils (%) (Auto) 1.7H, Neutrophils # (Auto) 6.6, Lymphocytes # (Auto) 0.7L, Monocytes # (Auto) 1.3H, Eosinophils # (Auto) 0.3, Basophils # (Auto) 0.2, Nucleated Red Blood Cells % (auto) 0.0, Prothrombin Time 17.4H, Prothromb Time International Ratio 1.39, Activated Partial Thromboplast Time 41.7H, Anion Gap 8, Glomerular Filtration Rate 19.8L, Calcium Level 8.8, Magnesium Level 2.2, Total Bilirubin 3.8H, Aspartate Amino Transf (AST/SGOT) 76H, Alanine Aminotransferase (ALT/SGPT) 24, Alkaline Phosphatase 160H, Total Protein 5.8L, Albumin 2.0L, Albumin/Globulin Ratio 0.5 CBC/BMP Laboratory Tests 11/15/20 05:03 Microbiology Microbiology 11/07/20 Gram Stain - Final, Complete 11/07/20 Body Fluid Culture - Final, Complete BRIAN GOMEZ MD Nov 15, 2020 13:59
[2020-11-15] MEDS: MIDODRINE 5 MG TAB PO SCH (17:48)
[2020-11-15] MEDS ORDERED: NS 250 ML IV ONE (19:45)
[2020-11-16] VITALS (17 sets, daily range): BP systolic 72–123; BP diastolic 44–62
[2020-11-16] MEDS ORDERED: NS 500 ML IV ONE (01:45)
[2020-11-16 05:41] LABS: BASO # 0.1 10^3/uL (0.0-0.2); BASO % 1.6 % (0.0-1.0); EOS # 0.2 10^3/uL (0.0-0.5); EOS % 3.7 % (0.0-3.0); HEMATOCRIT 32.1 % (42.0-52.0); LYMPH # 0.6 10^3/uL (1.5-5.0); LYMPH % 10.2 % (24.0-44.0); MEAN CORPUSCULAR HEMOGLOBIN 33.6 pg (27.0-33.0); MEAN CORPUSCULAR HGB CONC 31.2 g/dl (32.0-36.5); MEAN CORPUSCULAR VOLUME 107.7 fl (80.0-96.0); MONO # 0.9 10^3/uL (0.0-0.8); MONO % 13.6 % (0.0-5.0); NEUTROPHILS # 4.4 10^3/uL (1.5-8.5); NEUTROPHILS % 70.4 % (36.0-66.0); RED BLOOD COUNT 2.98 10^6/uL (4.30-6.10); WHITE BLOOD COUNT 6.3 10^3/uL (4.0-10.0)
[2020-11-16 05:58] LABS: PLATELET COUNT, AUTOMATED 69 10^3/uL (150-450)
[2020-11-16 06:10] LABS: ALBUMIN 2.4 GM/DL (3.2-5.2); BILIRUBIN,TOTAL 3.2 MG/DL (0.2-1.0); CALCIUM LEVEL 8.2 MG/DL (8.8-10.2); CREATININE FOR GFR 3.3 MG/DL (0.70-1.30); GLOMERULAR FILTRATION RATE 20.5 (>49); MAGNESIUM LEVEL 2.1 MG/DL (1.8-2.4); POTASSIUM SERUM 4.6 MEQ/L (3.5-5.1); TOTAL PROTEIN 5.1 GM/DL (6.4-8.2)
[2020-11-16] MEDS: FOLIC ACID 1 MG TAB PO SCH (08:28)
[2020-11-16] MEDS: MULTIVITAMINS/MINERALS THERAP 1 TAB PO SCH (08:28)
[2020-11-16] MEDS: MIDODRINE 5 MG TAB PO SCH ×3 (08:28→16:40)
[2020-11-16] MEDS: VITAMIN B COMPLEX/VIT C CAP PO SCH (08:28)
[2020-11-16] MEDS: THIAMINE 200MG/2ML VIAL (J3411 PER 100MG) IV SCH (08:29)
--- NOTE | 2020-11-16 10:15 | IPNPDOC ---
Subjective Date Seen The patient was seen on 11/16/20. Subjective Chief Complaint/HPI Definite improvement in his mental status this morning. I have had the most lucid conversation with him since his admission. He could tell me where he was and the name of the hospital and where it is located. When i explained that his liver was bad and asked him why he was able to say that it was because of his alcohol intake. He ate his dinner last night and he ate 50% of his breakfast this morning. BP better with albumin and midodrine. Objective Physical Examination General Exam: Positive: Alert, Cooperative, No Acute Distress, Other (Awake and alert) Eye Exam: Positive: Conjunctiva & lids normal, Sclera icteric ENT Exam: Positive: Atraumatic, Pharynx Normal, Other ENT Neck Exam: Positive: Supple, JVD Chest Exam: Positive: Clear to auscultation, Normal air movement Heart Exam: Positive: Rate Normal, Irregular Rhythm, Normal S1 Abdomen Exam: Positive: Normal bowel sounds, Soft, Hernia, Other Extremity Exam: Positive: Edema Psych Exam: Positive: Other (oriented x 2) Assessment /Plan Assessment 60 year old male with h/o alcohol abuse, CKD stage 3, h/o DVT x in the past in the left leg, chronic venous stasis, hypertension presented to ED with increasing swelling of the abdomen, leg swelling, cough and shortness of breath. Patient reports that the swelling has been building up over the past 5 weeks and now has become so bad that he has been have difficulty breathing because of the belly pushing up against his chest. He has been unable to bend down and wear his compression stocking. He describes his abdomen feeling very tense and tight with a stretching kind of pain rated it at about 4/10 and no position in bed in giving him any comfort. Its present all over the abdomen. He also noted an umbilical hernia. He was found to have massive ascites. He was also noted to be in Afib with RVR in the ED. US of the legs revealed DVT acute vs subacute on the left leg. He was also noted to have MARJORIE. Labs were significant for lactic acidosis and an alcohol level of 0.116. Creatinine of 2.36, Bilirubin 6.5. Direct Bili 5.2, ammonia 39. His last drink was last night. He admits that he has been drinking almost all his life and very heavily in the last 5 years. He was admitted for Decompensated cirrhosis of liver with massive ascites, possibly varices, cholestasis, MARJORIE, Afib with RVR and DVT of left leg acute Vs subacute Hypotension due to hypovolemia, multiple large volume paracentesis, cirrhosis and systolic CHF better with albumin and midodrine will continue. Decompensated Alcoholic cirrhosis of liver with ascites, varices seen in CT, thrombocytopenia MELD score of 26 with 90 day mortality up to 15%. Received Albumin and empiric ceftriaxone for SBP. Ascitic fluid culture negative Acute metabolic encephalopathy slight improvement noted today. due to acute ongoing alcohol withdrawal +/- Wernicke encephalopathy may also develop hepatic encephalopathy will continue high dose iv thiamine and vit b complex, folate CIWA protocol. MARJORIE Probably hepatorenal syndrome Albumin given , had paracentesis x 3 nephro following. will give albumin and midodrine. Afib with RVR now rate mostly controlled except when he is getting agitated. Will need to start AC when patient alert and oriented will discuss anticoagulation Systolic CHF acute on chronic with moderate pulmonary hypertension and right heart failure EF of 35% to 40% Eccentric LVH, Mild MR. Very poor oral intake will not give diuretics at present. Nonocclusive DVT affecting the left femoral vein and left popliteal vein. Ac when more awake. Continuos Alcohol abuse with acute withdrawal CIWA protocol in place Lactacidosis Now resolved probably a combination of liver failure and alcohol. Due to associated renal failure took longer to clear High anion gap metabolic acidosis due to lacticacidosis, alcohol ketosis now resolved. Hypernatremia improved due to poor oral free water intake. Cholestatic jaundice Due to cirrhosis will continue to monitor Hypomagnesemia replaced Thrombocytopenia due to cirrhosis and alcohol abuse. Hepatic lobe Within the hepatic dome posteriorly, there is a 2.8 x 1.9 cm hypodense lesion need further evaluation for malignancy will need further testing like MRI could be done as outpatient. Right lung base atelectasis/ pneumonia i do not believe he has a pneumonia as no fever, no elevated WBC, no resp complaints. this looks like atelectasis. Lung nodule needs follow up CT. DVT prophylaxis: mechanical. Plan/VTE VTE Prophylaxis Ordered?: Yes VS, I&O, 24H, Fishbone Vital Signs/I&O Vital Signs Date Time Temp Pulse Resp B/P (MAP) Pulse Ox O2 Delivery O2 Flow Rate FiO2 11/16/20 07:44 96.7 61 18 123/57 (79) 98 Room Air 11/15/20 16:15 1.0 I&O- Last 24 Hours up to 6 AM 11/16/20 06:00 Intake Total 3050.0 ml Output Total 225 ml Balance 2825.0 ml Laboratory Data 24H LABS Laboratory Tests 2 11/16/20 05:24: Immature Granulocyte % (Auto) 0.5, Neutrophils (%) (Auto) 70.4H, Lymphocytes (%) (Auto) 10.2L, Monocytes (%) (Auto) 13.6H, Eosinophils (%) (Auto) 3.7H, Basophils (%) (Auto) 1.6H, Neutrophils # (Auto) 4.4, Lymphocytes # (Auto) 0.6L, Monocytes # (Auto) 0.9H, Eosinophils # (Auto) 0.2, Basophils # (Auto) 0.1, Nucleated Red Blood Cells % (auto) 0.0, Immature Platelet Fraction 14.5H, Anion Gap 7L, Glomerular Filtration Rate 20.5L, Calcium Level 8.2L, Magnesium Level 2.1, Total Bilirubin 3.2H, Aspartate Amino Transf (AST/SGOT) 55H, Alanine Aminotransferase (ALT/SGPT) 20, Alkaline Phosphatase 129H, Total Protein 5.1L, Albumin 2.4L, Albumin/Globulin Ratio 0.9 CBC/BMP Laboratory Tests 11/16/20 05:24 Microbiology Microbiology 11/07/20 Gram Stain - Final, Complete 11/07/20 Body Fluid Culture - Final, Complete BRIAN GOMEZ MD Nov 16, 2020 10:15
--- NOTE | 2020-11-16 12:07 | IPN ---
PROGRESS NOTE DATE: 11/16/2020 SUBJECTIVE: Mr. Briceno is seen this morning on his bedside. Sitter is still present on the bedside as the patient has been confused and disoriented. He had another paracentesis and has been receiving IV albumin. His mentation seems to be slightly better, as he was able to answer a couple of questions. He had been started on midodrine due to hypotension; however, blood pressure is still low. Nursing staff reports that he was able to eat some breakfast this morning. OBJECTIVE: Vital signs: Temperature 96 degrees Fahrenheit, heart rate 55 per minute, and respiratory rate 18 per minute. Blood pressure 80/54 mmHg and oxygen saturation 99% on room air. HEAD: Atraumatic. NECK: Supple. JVD difficult to be assessed. HEART: Sounds are bradycardic and without a pericardial friction rub. LUNGS: Have moderate air entry with poor inspiratory effort. ABDOMEN: Slightly less distended, but still has ascites present. A dressing is present on the right lower quadrant where he had paracentesis done yesterday. NEUROLOGIC: He is awake. He is still confused, but improved compared to yesterday. LABORATORY DATA: On review, WBC count is 6.3, hemoglobin 10.0, hematocrit 31,1, platelets 69,000. Sodium 140, potassium 4.6, CO2 of 23, BUN 56, and creatinine 3.30. Glucose was 69 this morning and calcium 8.2. Total protein 5.1 and albumin 2.4. PROBLEMS: 1. Acute kidney injury superimposed on chronic kidney disease. Most likely this is hepatorenal syndrome. His oral intake has been poor and he was receiving IV fluid for the last few days. Now, he is receiving IV albumin, which is helping and kidney function is slightly improved compared to yesterday. He is also hypotensive and remains at risk for further decline in kidney function. 2. Hepatic cirrhosis with hepatic encephalopathy and recurrent ascites. The patient is not encephalopathic at present. He had another paracentesis done yesterday and has been receiving IV albumin. His mentation is slightly better, but overall condition is essentially unchanged. 3. Hypotension. Blood pressure remains low despite IV albumin and midodrine. Giving IV fluids is likely to help along with the albumin, but this is only a transient improvement. 4. Hyperkalemia. Potassium level has improved compared to yesterday and no changes are needed today. 5. Anemia. At present, his anemia is stable and there is no need for any urgent intervention. 6. DO NOT RESUSCITATE (DNR). 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 He is not a suitable candidate for consideration of dialysis. He is also not suitable for liver transplant at present, as he was actively drinking up until very recently.
--- NOTE | 2020-11-16 21:29 | REP ---
INDICATION: Ascites. May need albumin for large volume paracentesis. COMPARISON: None. TECHNIQUE: The procedure was performed under the direct supervision of Dr. Kidd. The risks and benefits of the procedure were explained to the patient and informed consent was obtained. The risks and benefits of the procedure were explained to the patient and informed consent was obtained. The largest pocket of fluid was localized in the right flank using ultrasound guidance. The skin was prepped and draped in a sterile fashion. 1% lidocaine was used as a local anesthetic. An 8-Slovenian multi side-hole catheter was inserted using trocar technique. 8100 mL of clear leonora fluid was withdrawn and discarded. The patient tolerated the procedure well and there were no immediate complications. After the appropriate amount of monitored convalescence, the patient was discharged from the department. FINDINGS: None IMPRESSION: Ultrasound-guided paracentesis yielding 8100 mL of clear leonora fluid. <Electronically signed by Merlin Mabry > 11/15/20 1620 <Electronically signed by Maxwell Kidd > 11/16/20 [id number]
[2020-11-17] VITALS (8 sets, daily range): BP systolic 80–110; BP diastolic 42–77
[2020-11-17 06:27] LABS: BASO # 0.1 10^3/uL (0.0-0.2); EOS # 0.2 10^3/uL (0.0-0.5); EOS % 3.2 % (0.0-3.0); HEMATOCRIT 34.5 % (42.0-52.0); HEMOGLOBIN 11.3 g/dl (13.5-17.5); LYMPH # 0.7 10^3/uL (1.5-5.0); LYMPH % 10.9 % (24.0-44.0); MEAN CORPUSCULAR HEMOGLOBIN 34.5 pg (27.0-33.0); MEAN CORPUSCULAR HGB CONC 32.8 g/dl (32.0-36.5); MEAN CORPUSCULAR VOLUME 105.2 fl (80.0-96.0); MONO # 0.9 10^3/uL (0.0-0.8); MONO % 13.5 % (0.0-5.0); NEUTROPHILS # 4.6 10^3/uL (1.5-8.5); NEUTROPHILS % 70.1 % (36.0-66.0); RED BLOOD COUNT 3.28 10^6/uL (4.30-6.10); WHITE BLOOD COUNT 6.6 10^3/uL (4.0-10.0)
[2020-11-17 06:30] LABS: PLATELET COUNT, AUTOMATED 73 10^3/uL (150-450)
[2020-11-17 06:53] LABS: ALBUMIN 2.6 GM/DL (3.2-5.2); BILIRUBIN,TOTAL 3.2 MG/DL (0.2-1.0); CALCIUM LEVEL 8.2 MG/DL (8.8-10.2); CREATININE FOR GFR 3.13 MG/DL (0.70-1.30); GLOMERULAR FILTRATION RATE 21.7 (>49); MAGNESIUM LEVEL 2.3 MG/DL (1.8-2.4); POTASSIUM SERUM 4.6 MEQ/L (3.5-5.1); TOTAL PROTEIN 5.2 GM/DL (6.4-8.2)
[2020-11-17] MEDS: VITAMIN B COMPLEX/VIT C CAP PO SCH (08:14)
[2020-11-17] MEDS: MULTIVITAMINS/MINERALS THERAP 1 TAB PO SCH (08:14)
[2020-11-17] MEDS: MIDODRINE 5 MG TAB PO SCH ×4 (08:14→16:34)
[2020-11-17] MEDS: FOLIC ACID 1 MG TAB PO SCH (08:14)
[2020-11-17 08:25] LABS: PHOSPHORUS LEVEL 4.4 MG/DL (2.5-4.9)
--- NOTE | 2020-11-17 10:27 | IPNPDOC ---
Subjective Date Seen The patient was seen on 11/17/20. Subjective Chief Complaint/HPI Again confused this morning, though awake, alert and answering questions. No fever or chills. No chest pain or sob. Objective Physical Examination General Exam: Positive: Alert, Cooperative, No Acute Distress, Other (Awake and alert) Eye Exam: Positive: Conjunctiva & lids normal, Sclera icteric ENT Exam: Positive: Atraumatic, Pharynx Normal, Other ENT Neck Exam: Positive: Supple Chest Exam: Positive: Clear to auscultation, Normal air movement Heart Exam: Positive: Rate Normal, Irregular Rhythm, Normal S1 Abdomen Exam: Positive: Normal bowel sounds, Soft, Hernia, Other Extremity Exam: Positive: Edema Psych Exam: Positive: Other (oriented x 2) Assessment /Plan Assessment 60 year old male with h/o alcohol abuse, CKD stage 3, h/o DVT x in the past in the left leg, chronic venous stasis, hypertension presented to ED with increasing swelling of the abdomen, leg swelling, cough and shortness of breath. Patient reports that the swelling has been building up over the past 5 weeks and now has become so bad that he has been have difficulty breathing because of the belly pushing up against his chest. He has been unable to bend down and wear his compression stocking. He describes his abdomen feeling very tense and tight with a stretching kind of pain rated it at about 4/10 and no position in bed in giving him any comfort. Its present all over the abdomen. He also noted an umbil ical hernia. He was found to have massive ascites. He was also noted to be in Afib with RVR in the ED. US of the legs revealed DVT acute vs subacute on the left leg. He was also noted to have MARJORIE. Labs were significant for lactic acidosis and an alcohol level of 0.116. Creatinine of 2.36, Bilirubin 6.5. Direct Bili 5.2, ammonia 39. His last drink was last night. He admits that he has been drinking almost all his life and very heavily in the last 5 years. He was admitted for Decompensated cirrhosis of liver with massive ascites, possibly varices, cholestasis, MARJORIE, Afib with RVR and DVT of left leg acute Vs subacute Hypotension due to hypovolemia, multiple large volume paracentesis, cirrhosis and systolic CHF better with albumin and midodrine will continue. Decompensated Alcoholic cirrhosis of liver with ascites, varices seen in CT, thrombocytopenia MELD score of 26 with 90 day mortality up to 15%. Received Albumin and empiric ceftriaxone for SBP. Ascitic fluid culture negative Acute metabolic encephalopathy slight improvement noted today. due to acute ongoing alcohol withdrawal +/- Wernicke encephalopathy may also develop hepatic encephalopathy will continue high dose iv thiamine and vit b complex, folate CIPR protocol. MARJORIE Probably hepatorenal syndrome Albumin given , had paracentesis x 3 nephro following. will give albumin and midodrine. Afib with RVR now rate mostly controlled except when he is getting agitated. Will need to start AC when patient alert and oriented will discuss anticoagulation Systolic CHF acute on chronic with moderate pulmonary hypertension and right heart failure EF of 35% to 40% Eccentric LVH, Mild MR. Very poor oral intake will not give diuretics at present. Nonocclusive DVT affecting the left femoral vein and left popliteal vein. Ac when more awake. Continuos Alcohol abuse with acute withdrawal CIWA protocol in place Lactacidosis Now resolved probably a combination of liver failure and alcohol. Due to associated renal failure took longer to clear High anion gap metabolic acidosis due to lacticacidosis, alcohol ketosis now resolved. Hypernatremia improved due to poor oral free water intake. Cholestatic jaundice Due to cirrhosis will continue to monitor Hypomagnesemia replaced Thrombocytopenia due to cirrhosis and alcohol abuse. Hepatic lobe Within the hepatic dome posteriorly, there is a 2.8 x 1.9 cm hypodense lesion need further evaluation for malignancy will need further testing like MRI could be done as outpatient. Lung nodule needs follow up CT. DVT prophylaxis: mechanical. Plan/VTE VTE Prophylaxis Ordered?: Yes VS, I&O, 24H, Fishbone Vital Signs/I&O Vital Signs Date Time Temp Pulse Resp B/P (MAP) Pulse Ox O2 Delivery O2 Flow Rate FiO2 11/17/20 06:00 59 96/61 11/17/20 05:32 96.1 12 100 Room Air 11/15/20 16:15 1.0 I&O- Last 24 Hours up to 6 AM 11/17/20 06:00 Intake Total 380.0 ml Output Total 400 ml Balance -20.0 ml Laboratory Data 24H LABS Laboratory Tests 2 11/17/20 06:15: Immature Granulocyte % (Auto) 0.3, Neutrophils (%) (Auto) 70.1H, Lymphocytes (%) (Auto) 10.9L, Monocytes (%) (Auto) 13.5H, Eosinophils (%) (Auto) 3.2H, Basophils (%) (Auto) 2.0H, Neutrophils # (Auto) 4.6, Lymphocytes # (Auto) 0.7L, Monocytes # (Auto) 0.9H, Eosinophils # (Auto) 0.2, Basophils # (Auto) 0.1, Nucleated Red Blood Cells % (auto) 0.0, Immature Platelet Fraction 13.8H, Anion Gap 7L, Glomerular Filtration Rate 21.7L, Calcium Level 8.2L, Phosphorus Level 4.4, Magnesium Level 2.3, Total Bilirubin 3.2H, Aspartate Amino Transf (AST/SGOT) 67H, Alanine Aminotransferase (ALT/SGPT) 22, Alkaline Phosphatase 143H, Total Protein 5.2L, Albumin 2.6L, Albumin/Globulin Ratio 1.0 CBC/BMP Laboratory Tests 11/17/20 06:15 Microbiology Microbiology 11/07/20 Gram Stain - Final, Complete 11/07/20 Body Fluid Culture - Final, Complete BRIAN GOMEZ MD Nov 17, 2020 10:27
[2020-11-17] MEDS: THIAMINE 200MG/2ML VIAL (J3411 PER 100MG) IV SCH (12:48)
--- NOTE | 2020-11-17 15:08 | IPN ---
PROGRESS NOTE DATE: 11/17/2020 SUBJECTIVE: Mr. Briceno is seen this afternoon on his bedside. He remains very confused and disoriented. Sitter is present in the room. The nursing staff is getting a bladder scan done which is showing more than 300 ml residual urine. The patient has been declining to urinate. The nursing staff that he did require straight catheterization last night too. The patient has been confused and unable to cooperate. PHYSICAL EXAMINATION: VITAL SIGNS: Temperature 96.1 degrees Fahrenheit, heart rate 60 per minute and respiratory rate 18 per minute, blood pressure is 97/63 mmHg and oxygen saturation 95% on room air. HEAD: Atraumatic. NECK: Supple. JVD not abnormally elevated. HEART: Heart sounds are regular. LUNGS: Diminished breath sounds and poor inspiratory effort. ABDOMEN: Distended with ascites. Bowel sounds are present. I could not feel a distended urinary bladder, however bladder scan did show about 360 ml. EXTREMITIES: No cyanosis or clubbing. NEUROLOGIC: He remains confused and disoriented. LABORATORY DATA: Today's labs shows a WBC count of 6.6, hemoglobin 11.3 and hematocrit 34.5. Platelets are 73,000. Sodium is 141, potassium is 4.6, BUN 55 and creatinine 3.13. Calcium is 8.2, and total bilirubin 3.2. Albumin is 2.6 today and total protein is 5.2. PROBLEMS: 1. Acute kidney injury superimposed on chronic kidney disease. Most likely hepatorenal and has been improving slowly since he is receiving IV Albumin. His long-term prognosis remains poor due to hepatic dysfunction and he is not a suitable candidate for dialysis. At present, he is not likely to tolerate anything because of low blood pressure. 2. Urinary retention. The patient has been declining to urinate. Straight catheterization has been before and the nursing staff is trying to help to get up to see if he will urinate, otherwise he will require straight catheterization again. 3. Cirrhosis of liver with recurrent ascites. Patient has advanced cirrhosis with hepatic encephalopathy and recurrence ascites requiring paracentesis. He did have a paracentesis a couple of days ago. His long-term prognosis remains poor.
[2020-11-17] MEDS ORDERED: HALOPERIDOL 5MG/ML VIAL (J1630 PER 1) IV ONE (17:30)
[2020-11-17] MEDS ORDERED: LORazepam 2 MG/ML VIAL IM STA (21:53)
[2020-11-17] MEDS ORDERED: chlordiazePOXIDE 25 MG CAP PO ONE (22:00)
[2020-11-17] MEDS ORDERED: LORazepam 2 MG TAB PO PRN (22:30)
[2020-11-17] MEDS: LACTULOSE 20 GM/30 ML SYRUP UD PO SCH (22:48)
[2020-11-18] VITALS (9 sets, daily range): BP systolic 88–102; BP diastolic 44–66
[2020-11-18] MEDS: LACTULOSE 20 GM/30 ML SYRUP UD PO SCH (06:45)
[2020-11-18 07:28] LABS: CALCIUM LEVEL 8.8 MG/DL (8.8-10.2); CREATININE FOR GFR 3.02 MG/DL (0.70-1.30); GLOMERULAR FILTRATION RATE 22.7 (>49); POTASSIUM SERUM 4.8 MEQ/L (3.5-5.1)
[2020-11-18] MEDS: VITAMIN B COMPLEX/VIT C CAP PO SCH (09:00)
[2020-11-18] MEDS: MULTIVITAMINS/MINERALS THERAP 1 TAB PO SCH (09:00)
[2020-11-18] MEDS: FOLIC ACID 1 MG TAB PO SCH (09:00)
[2020-11-18] MEDS: THIAMINE 200MG/2ML VIAL (J3411 PER 100MG) IV SCH (09:00)
[2020-11-18] MEDS: MIDODRINE 5 MG TAB PO SCH ×3 (09:53→16:00)
[2020-11-18] MEDS ORDERED: HYOSCYAMINE SULFATE 0.125 MG SUBL TABLET PO PRN (14:00)
[2020-11-18] MEDS ORDERED: LORazepam 2 MG/ML VIAL As Ordered ONE (20:47)
[2020-11-18] MEDS: LORazepam 2 MG/ML VIAL IV PRN (20:55)
[2020-11-19] MEDS ORDERED: LORazepam 2 MG/ML VIAL As Ordered ONE (03:05)
[2020-11-19] MEDS: LORazepam 2 MG/ML VIAL IV PRN (03:08)
[2020-11-19] MEDS: MIDODRINE 5 MG TAB PO SCH ×3 (08:00→15:41)
[2020-11-19] MEDS: FOLIC ACID 1 MG TAB PO SCH (08:54)
[2020-11-19] MEDS: MULTIVITAMINS/MINERALS THERAP 1 TAB PO SCH (08:54)
[2020-11-19] MEDS: VITAMIN B COMPLEX/VIT C CAP PO SCH (08:54)
--- NOTE | 2020-11-19 16:06 | IPNPDOC ---
Text Note Date of Service The patient was seen on 11/19/20. NOTE Subjective: was awake at night then asleep this morning. Got 2 doses of Ativan last night. poor oral intake. Patient now in INFANT TEACHER status. Physical Exam Patient laying comfortable on his side sedated. Resp: clear to auscultation CVS: S1, s2 irregular. Abdomen: distended with ascites. Extremities with bipedal edema. Assessment and plan: 60 year old male with h/o alcohol abuse, CKD stage 3, h/o DVT x in the past in the left leg, chronic venous stasis, hypertension presented to ED with increasing swelling of the abdomen, leg swelling, cough and shortness of breath. Patient reports that the swelling has been building up over the past 5 weeks and now has become so bad that he has been have difficulty breathing because of the belly pushing up against his chest. He has been unable to bend down and wear his compression stocking. He describes his abdomen feeling very tense and tight with a stretching kind of pain rated it at about 4/10 and no position in bed in giving him any comfort. Its present all over the abdomen. He also noted an umbilical hernia. He was found to have massive ascites. He was also noted to be in Afib with RVR in the ED. US of the legs revealed DVT acute vs subacute on the left leg. He was also noted to have MARJORIE. Labs were significant for lactic acidosis and an alcohol level of 0.116. Creatinine of 2.36, Bilirubin 6.5. Direct Bili 5.2, ammonia 39. His last drink was last nig ht. He admits that he has been drinking almost all his life and very heavily in the last 5 years. He was admitted for Decompensated cirrhosis of liver with massive ascites, possibly varices, cholestasis, MARJORIE, Afib with RVR and DVT of left leg acute Vs subacute. Slim has been aggreesively manged for decompensated cirrhosis, alcohol withdrawal, wrenicke encephalopathy , hepatorenal syndrome with no improvement in the clinical condition. Discussed with HCP daughter Analia regarding extremely poor prognosis . She wanted patient to be kept comfortable and to be placed under hospice. 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 Hospice will be consulted on 11/20/20. INFANT TEACHER status ativan for agitation Morphine for pain Hyoscyamine for terminal secretions. Medical problems: Decompensated Alcoholic cirrhosis of liver Thrombocytopenia hepatic encephalopathy ascites alcohol withdrawal wernicke encephalopathy Acute metabolic encephalopathy MARJORIE Hepatorenal syndrome Afib with RVR Systolic CHF acute on chronic with moderate pulmonary hypertension and right heart failure EF of 35% to 40% Nonocclusive DVT affecting the left femoral vein and left popliteal vein. Continuos Alcohol abuse with acute withdrawal Lactacidosis High anion gap metabolic acidosis Hypernatremia Cholestatic jaundice Hypomagnesemia Hepatic lobe lesion Lung nodule VS,Fishbone, I+O VS, Fishbone, I+O Vital Signs Date Time Temp Pulse Resp B/P (MAP) Pulse Ox O2 Delivery O2 Flow Rate FiO2 11/18/20 14:00 62 16 98/63 (75) 99 Room Air 11/18/20 08:33 96.1 11/15/20 16:15 1.0 I&O- Last 24 Hours up to 6 AM 11/19/20 07:00 Intake Total 110.0 ml Output Total 450 ml Balance -340.0 ml BRIAN GOMEZ MD Nov 19, 2020 16:06
--- NOTE | 2020-11-19 17:40 | IPN ---
PROGRESS NOTE DATE: 11/18/2020 SUBJECTIVE: The patient is seen and examined this morning at the bedside. There was a 1:1 sitter present at the bedside. Patient was lethargic and did not follow any commands. He did not open eyes. He did not attempt to communicate. The nursing staff report they were unable to feed him today nor give him any of his medications with applesauce. PHYSICAL EXAMINATION: VITAL SIGNS: Temperature is 96.1, pulse is 63, respiratory rate is 20, blood pressure is 94/62, saturating 98 to 99% on room air. INTAKE AND OUTPUT: Intake yesterday was 690. Urine output yesterday was 450 plus one incontinent void. Postvoid residual was less than 200 ml. Weight on the bed scale today was not recorded. GENERAL: Patient was seen lying in bed. There was a sitter 1:1 present at the bedside. He was not awake, not alert and not responsive. He was moving his arms spontaneously and moving his head spontaneously as well. He did not open his eyes to command. HEENT: Tongue is dry. NECK: Supple. HEART: Heart sounds were regular. There was no leg edema. LUNGS: There was bilateral air movement. No wheeze or crackle. He seems comfortable on room air. ABDOMEN: Significantly distended with ascites and he grimaced when I tried to palpate the bladder. EXTREMITIES: Negative for cyanosis or clubbing. There is muscle wasting. NEUROLOGIC: The patient is lethargic. LABORATORY DATA: Sodium is 140, potassium is 4.8, bicarbonate 21, BUN 54, creatinine is 3.0. Ammonia is 54. Hemoglobin is 11.3, platelets 73,000. INPATIENT MEDICATIONS: The patient did not have any of his morning medicines today with applesauce secondary to his altered mental status. He received a dose of Librium last night, 75 mg. His remainder of medications are unchanged from prior. PROBLEMS: 1. MARJORIE on CKD Stage III. The patient has had three large volume paracentesis on this admission. He has received 22 doses of albumin infusion. He is also on chronic Midodrine for his hypotension related to cirrhosis. His deterioration in renal function is most likely related to decompensated alcoholic cirrhosis of the liver (hepatorenal syndrome). He is not a suitable candidate for hemodialysis. At present, his intake has been very poor and he has altered mental status. I would not give him any diuretics. 2. Decompensated alcoholic cirrhosis and hepatorenal syndrome. He has had three large volume paracentesis. The ascitic fluid has reaccumulated. He has received aggressive albumin infusions. He is on chronic Midodrine. His ammonia level has risen slightly. He is ordered for Lactulose by the Primary Service. His overall prognosis is poor. 3. Chronic hypotension most likely related to cirrhosis and systolic congestive heart failure and right heart failure. He is on Midodrine. His oral intake is poor. No need for diuretic at present. 4. Altered mental status, it is multifactorial. INCOMPLETE/verified/ml
[2020-11-19] MEDS: MORPHINE 10MG/0.5ML ORAL CONCENTRATE SOLUTION U/D SL PRN (20:24)
[2020-11-20] MEDS: MIDODRINE 5 MG TAB PO SCH ×3 (08:00→16:00)
[2020-11-20] MEDS: MULTIVITAMINS/MINERALS THERAP 1 TAB PO SCH (09:00)
[2020-11-20] MEDS: FOLIC ACID 1 MG TAB PO SCH (09:00)
[2020-11-20] MEDS: VITAMIN B COMPLEX/VIT C CAP PO SCH (09:00)
[2020-11-21] MEDS: FOLIC ACID 1 MG TAB PO SCH (08:29)
[2020-11-21] MEDS: VITAMIN B COMPLEX/VIT C CAP PO SCH (08:29)
[2020-11-21] MEDS: MIDODRINE 5 MG TAB PO SCH ×3 (08:29→16:00)
[2020-11-21] MEDS: MULTIVITAMINS/MINERALS THERAP 1 TAB PO SCH (08:29)
[2020-11-21] MEDS: MORPHINE 10MG/0.5ML ORAL CONCENTRATE SOLUTION U/D SL PRN (12:17)
[2020-11-22] MEDS: VITAMIN B COMPLEX/VIT C CAP PO SCH (08:40)
[2020-11-22] MEDS: MIDODRINE 5 MG TAB PO SCH ×3 (08:40→16:00)
[2020-11-22] MEDS: FOLIC ACID 1 MG TAB PO SCH (08:40)
[2020-11-22] MEDS: MULTIVITAMINS/MINERALS THERAP 1 TAB PO SCH (08:40)
[2020-11-22] MEDS ORDERED: MOM 30ML SUSPENSION UDC PO PRN (10:00)
[2020-11-22] MEDS: LORazepam 1 MG TAB PO PRN (21:37)
[2020-11-23] MEDS: MIDODRINE 5 MG TAB PO SCH ×3 (08:00→16:00)
[2020-11-23] MEDS ORDERED: HYOS125TA PO (08:01)
[2020-11-23] MEDS ORDERED: ATIV1TAB10 PO (08:01)
[2020-11-23] MEDS ORDERED: MORP20SO3 PO (08:01)
[2020-11-23] MEDS: MULTIVITAMINS/MINERALS THERAP 1 TAB PO SCH (09:00)
[2020-11-23] MEDS: VITAMIN B COMPLEX/VIT C CAP PO SCH (09:00)
[2020-11-23] MEDS: FOLIC ACID 1 MG TAB PO SCH (09:00)
[2020-11-23] MEDS: LORazepam 1 MG TAB PO PRN ×2 (10:18→20:48)
[2020-11-24] MEDS: VITAMIN B COMPLEX/VIT C CAP PO SCH (08:26)
[2020-11-24] MEDS: FOLIC ACID 1 MG TAB PO SCH (08:26)
[2020-11-24] MEDS: MIDODRINE 5 MG TAB PO SCH (08:26)
[2020-11-24] MEDS: MULTIVITAMINS/MINERALS THERAP 1 TAB PO SCH (08:26)
--- NOTE | 2020-11-24 13:56 | DS.PDOC ---
Discharge Summary General Date of Admission Nov 02, 2020 at 18:47 Date of Discharge 11/24/20 certified surgical tech/first assistant discharged to hospice house. Discharge Summary CONSULTANTS: NEPHROLOGISTS-Dr. Jerry Corona, Dr. Harish العلي, Dr. Yajaira Corona DISCHARGE DIAGNOSES: Decompensated liver cirrhosis with anasarca Hepatorenal syndrome Hyperkalemia Anemia of chronic disease Chronic Atrial fibrillation with rapid ventricular response High anion gap Metabolic acidosis Chronic thrombocytopenia Cholestatic jaundice Hypomagnesemia Pulmonary nodule Liver nodule Hypotension Acute hepatic encephalopathy Left lower extremity DVT Alcohol withdrawal Acute decompensated systolic and diastolic congestive heart failure, ejection fraction of 35-40% Lactic acidosis DISCHARGE MEDICATIONS: SEE BELOW DISCHARGE INSTRUCTIONS: PCP TO [facility]NA[facility] NEEDS OUTPT. DNR/DNI/COMFORT MEASURES ONLY. HOSPITAL COURSE: 60-year-old male with history of liver cirrhosis, chronic kidney disease stage III, chronic atrial fibrillation, admitted due to increasing abdominal distention, shortness of breath, found to have ascites, bilateral lower extremity edema A. fib with RVR acute on chronic renal failure with presenting creatinine of 2.37 and decompensated liver cirrhosis with anasarca. In the ER he was given intravenous Lasix, metoprolol 25 mg every 6 hourly for rate control and digoxin, Lovenox, due to positive nonocclusive DVT in the left femoral and left popliteal vein. . He was admitted to the hospital service, placed on CIWA protocol due to history of alcohol abuse. Abdominal ultrasound showed moderate to large amount of ascites fibrofatty infiltration of the liver, likely cirrhosis, diffuse gallbladder wall thickening but no stones. No thrombosis or hepatic vein thrombosis. CT chest showed consolidation at the right lung base representing atelectasis. Since the patient had no fever, chills, or white count. No antibiotics were given. With diuresis. Patient developed hypotension with systolic pressure 76/44 , given intravenous fluids, but with worsening anasarca. IV fluids were discontinued. , He had worsening renal function. Nephrology recommended paracentesis with 13 L of ascites removed on 11/03/20, 8 L removed on 11/15/2020 and 8 L removed on 11/07/2020. Transfusion He received a total of 22 units of albumin 25%, and midodrine, but continued to have persistent renal dysfunction and ascitic fluid accumulation despite paracentesis. Patient developed hepatorenal syndrome and hepatic encephalopathy with recurrent ascites. Patient's daughter who is the healthcare proxy as according to patient's prior wishes made the patient DO NOT RESUSCITATE, DO NOT INTUBATE and comfort measures only, as he is not suitable for dialysis or liver transplantation due to active alcohol use. Patient was discharged to hospice house under comfort measures only, DO NOT RESUSCITATE, DO NOT INTUBATE Discharge physical exam General mild distress, cachectic, appears older than his stated age. Positive use of respiratory accessory muscles . HEENT: No JVD, no thyromegaly. Anicteric. Mild jaundice. Dry mucous membranes . Lungs diminished bilateral crackles at the bases. No wheezing . Heart S1, S2, irregularly irregular, not tachycardic . Abdomen distended, positive fluid wave, positive bowel sounds 4 quadrants. Tenderness. Petechiae or spider angiomata, palmar erythema . Extremities chronic edema, 2+ to the sacrum Discharge laboratory data see below Imaging, see below Time spent on discharge 30 minutes Vital Signs/I&Os Vital Signs Date Time Temp Pulse Resp B/P (MAP) Pulse Ox O2 Delivery O2 Flow Rate FiO2 11/18/20 14:00 62 16 98/63 (75) 99 Room Air 11/18/20 08:33 96.1 I&O- Last 24 Hours up to 6 AM 11/24/20 06:00 Intake Total 600 ml Balance 600 ml Discharge Medications Scheduled PRN Hyoscyamine Sulfate (Hyoscyamine Sulfate) 0.125 Mg Tab.subl, 0.125 MG PO Q4HP PRN for TERMINAL SECRETIONS Use sublingually if unable to swallow Lorazepam (Ativan) 0.5 Mg Tablet, 0.5 MG PO Q4HP PRN for ANXIETY/AGITATION Use sublingually if unable to swallow Morphine Sulfate (Morphine Sulfate) 100 Mg/5 Ml Solution, 0.25-1 ML PO Q2H PRN for PAIN OR DYSPNEA Use sublingually if unable to swallow Allergies Coded Allergies: No Known Allergies (Verified , 05/23/03) JOHNNIE VARELA MD Nov 24, 2020 11:37
== END 2020-11-24 09:45 | disposition hospice, inpatient (51) | DRG 280 ==
LOC: M ED 13:01 → M ED INP 18:47 → ENRESERV 23:48 → M PCU 11-03 00:05 → M MSPAV 11-16 19:59
PROVIDERS: ADMIT Internal Medicine Nephrology; ATTEND General Practice
PROC: 0W9F3ZZ Drainage of Abdominal Wall, Percutaneous Approach (ICD-10-PCS; 2020-11-03)
PROC: 0W9F3ZZ Drainage of Abdominal Wall, Percutaneous Approach (ICD-10-PCS; principal; 2020-11-07 08:30)
PROC: 0W9F3ZZ Drainage of Abdominal Wall, Percutaneous Approach (ICD-10-PCS; 2020-11-15)
DX: K70.31 Alcoholic cirrhosis of liver with ascites (principal); K76.7 Hepatorenal syndrome; I50.41 Acute combined systolic (congestive) and diastolic (congestive) heart failure; E87.2 Acidosis; E87.0 Hyperosmolality and hypernatremia; N17.9 Acute kidney failure, unspecified; D69.6 Thrombocytopenia, unspecified; I95.9 Hypotension, unspecified; I13.0 Hypertensive heart and chronic kidney disease with heart failure and stage 1 through stage 4 chronic kidney disease, or unspecified chronic kidney disease; N18.30 Chronic kidney disease, stage 3 unspecified; I82.412 Acute embolism and thrombosis of left femoral vein; I27.20 Pulmonary hypertension, unspecified; E87.5 Hyperkalemia; I48.20 Chronic atrial fibrillation, unspecified; E83.42 Hypomagnesemia; R91.1 Solitary pulmonary nodule; Z66 Do not resuscitate; Z51.5 Encounter for palliative care; R60.1 Generalized edema; E78.5 Hyperlipidemia, unspecified; I87.8 Other specified disorders of veins; E87.6 Hypokalemia; R31.9 Hematuria, unspecified; K72.00 Acute and subacute hepatic failure without coma